=== PATIENT | female | born 1940 | race Caucasian/White ===

== ENCOUNTER 2016-09-08 16:54 | Inpatient (IN) | payer MEDICARE ==
[~2016-09-08] VITALS: Ht 157.5 cm; Wt 65.6 kg
[~2016-09-08 16:54] MED LIST: ADV250INH INH; ALBU17IN INH; ASPI81TA85 PO; FURO20TA2 PO; MICA40TA2 PO
[2016-09-08] MEDS: IPRATROPIUM 0.5MG/ALBUTEROL 2.5MG INH SOL UD 3ML (DUONEB)(J7620) NEB PRN ×3 (17:29→17:34)
[2016-09-08] MEDS ORDERED: VALS320T3 PO (17:33)
[2016-09-08 18:00] LABS: VENOUS BASE EXCESS 0.3 (-2.0-2.0); VENOUS O2 SATURATION 97.5 % (60.0-80.0); VENOUS PARTIAL PRESSURE CO2 47.8 mmHg (38.0-50.0); VENOUS PARTIAL PRESSURE O2 96.5 mmHg (30.0-50.0); VENOUS STANDARD HCO3 24.7 MEQ/L; VENOUS TOTAL CO2 27.7 MEQ/L (24.0-28.0)
[2016-09-08 18:01] LABS: BASO % 0.1 % (0.0-1.0); EOS % 0.1 % (0.0-3.0); LARGE UNSTAINED CELL % 0.3 % (0.0-4.0); LYMPH # 0.3 K/mm3 (1.5-4.5); LYMPH % 2.6 % (24.0-44.0); MEAN CORPUSCULAR HEMOGLOBIN 30.6 pg (27.0-33.0); MEAN CORPUSCULAR HGB CONC 32.2 g/dl (32.0-36.5); MEAN CORPUSCULAR VOLUME 95.2 fl (80.0-96.0); MONO # 0.2 K/mm3 (0.0-0.8); MONO % 1.8 % (0.0-5.0); NEUTROPHILS # 8.7 K/mm3 (1.8-7.7); NEUTROPHILS % 95.2 % (36.0-66.0); PLATELET COUNT, AUTOMATED 210 k/mm3 (150-450); RED CELL DISTRIBUTION WIDTH 14.2 % (11.5-14.5); WHITE BLOOD COUNT 9.1 K/mm3 (4.0-10.0)
[2016-09-08 18:07] LABS: INR 1.02
--- NOTE | 2016-09-08 18:24 | REP ---
Clinical: Shortness of breath. Pleural effusion. Findings: A large right predominantly free-flowing pleural effusion is appreciated along with a moderate and partially loculated left pleural effusion with fluid extending into the bilateral major fissures as well as associated lower lobe, right middle lobe and lingular consolidation/atelectasis. Atherosclerotic changes to the thoracic aorta and coronary arteries as well as mitral valve annulus are noted along with cardiomegaly. Reactive mediastinal lymph nodes measure up to approximately 11 mm short axis diameter. Skeletal structures demonstrate age-related degenerative changes. Impression: Large right and moderate left pleural effusions with associated elements of basilar, right middle lobe, and lingular atelectasis/consolidations. Findings may be related to cardiac dysfunction with cardiomegaly and atherosclerotic changes noted. Signed by Chirag Javier MD 09/08/2016 06:15 P
[2016-09-08 18:35] LABS: ALBUMIN 2.7 GM/DL (3.2-5.2); ALBUMIN/GLOBULIN RATIO 0.73 (1.00-1.93); BILIRUBIN,DIRECT 0.1 MG/DL (0.0-0.2); BILIRUBIN,TOTAL 0.4 MG/DL (0.2-1.0); CALCIUM LEVEL 8.6 MG/DL (8.8-10.2); CREATININE FOR GFR 1.27 MG/DL (0.55-1.02); GLOMERULAR FILTRATION RATE 43.3 (>39); POTASSIUM SERUM 4.2 MEQ/L (3.5-5.1); TOTAL PROTEIN 6.4 GM/DL (6.4-8.2)
[2016-09-08] MEDS ORDERED: VALS80TA PO (19:33)
[2016-09-08] MEDS ORDERED: FLON1SPR (19:33)
[2016-09-08] MEDS ORDERED: IPRATROPIUM 0.5MG/ALBUTEROL 2.5MG INH SOL UD 3ML (DUONEB)(J7620) NEB PRN (20:15)
--- NOTE | 2016-09-08 23:54 | HPE ---
DATE OF ADMISSION: 09/08/2016 PRIMARY CARE PROVIDER: Dr. Pulido in [place] REASON FOR ADMISSION: Shortness of breath secondary to pleural effusion. HISTORY OF PRESENT ILLNESS: The patient is a 76-year-old female, past medical history significant for chronic obstructive pulmonary disease (COPD), on 2 liters of oxygen at night time, subclavian steal syndrome, hypertension, chronic kidney disease, right-sided congestive heart failure, cor pulmonale and recurrent pleural effusions secondary to congestive heart failure. The patient presented to [facility] Emergency Room from [facility] after she presented there for shortness of breath. The patient stated that she has been feeling short of breath for the past few days, that has been getting worse. She cannot lie flat due to shortness of breath. She has been having some chills and increased swelling in her legs. She denied any fevers. She denied any chest pain. She denied any acute cough. She stated she has had multiple pleural effusions in the past, last of which was in April 2016 where she underwent a thoracentesis. She had a total of four thoracentesis in the past. She follows up with Dr. Bradley who did an x-ray in June and it was found to be normal. Today, the patient had a CT scan in [place] which showed bilateral effusions, and the patient was instructed to present to [facility]. In the emergency room, CT scan was repeated, and the patient was found to have a large right and a moderate left pleural effusions with associated elements of basilar, right middle lobe and lingular atelectasis and consolidation. Dr. Her was consulted from the emergency room who has agreed to see the patient in consultation once she was admitted and her heart failure is optimized. REVIEW OF SYSTEMS: 12-point review of systems was obtained, all of which was negative except for those mentioned above. PAST MEDICAL HISTORY: Significant for: Recurrent pleural effusions. COPD, on 2 liters of oxygen at night. Subclavian steal syndrome. Hypertension. Chronic kidney disease, stage III. Right-sided congestive heart failure. Cor pulmonale. PAST SURGICAL HISTORY; Significant for: Partial hysterectomy. Vascular surgery for her subclavian steal syndrome. ALLERGIES: To BETA KATIE and STATIN. SOCIAL HISTORY: The patient was a smoker, quit 6 years ago. She states she used to smoke half-a-pack per day for 50 years. She denies any alcohol use. Lives at home alone. FAMILY HISTORY: Noncontributory. HOME MEDICATIONS: Include: - aspirin 81 mg by mouth daily - Ventolin HFA two puffs inhaled four times a day as needed for wheezing - Flonase Allergy, one spray per nostril daily as needed for runny nose - Advair Diskus one puff inhaled twice a day - valsartan/HCTZ combo pill 80-12.5 mg one tablet by mouth daily The patient has not taken her blood pressure medication recently due to low blood pressure. PHYSICAL FINDINGS: Vital signs: On admission, temperature 96, pulse 94, respiratory rate 16, blood pressure is 106/76, pulse oximetry 97% on 4 liters. HEENT: Pupils equal, round, reactive to light and accommodation. Neck: Supple. No jugular venous distention (JVD). Lungs: Diminished breath sounds bilaterally. Abdomen: Soft, nontender, nondistended. Extremities: +3 edema bilaterally. No cyanosis or clubbing. Cardiac: Irregular rate and rhythm. LABORATORY FINDINGS: WBC is 9.1, hemoglobin 12.2, hematocrit 37.8, platelet count 210. Sodium 42, potassium 4.2, chloride 106, BUN 31, creatinine 1.27, hemoglobin A1c 6.2. Liver enzymes: AST 44, ALT 31, alkaline phosphatase 124, BNP greater than 5000, troponin negative times two sets. INR 1.02. Blood gas: Venous blood gas: pH was 7.35. CT findings as above. ASSESSMENT AND PLAN: 1. Bilateral pleural effusion, large right and moderate left pleural effusions, likely secondary to congestive heart failure exacerbation. Dr. Her is consulted for possible thoracentesis in the morning. We will start the patient on IV Lasix 40 mg IV twice a day. We will continue to monitor intake and output and daily weights. The patient states she was on Lasix in the past 20 mg by mouth daily, she was taken off of it due to low blood pressure by her primary care provider. 2. Decompensated congestive heart failure. The patient has history of diastolic congestive heart failure with recurrent pleural effusion. She has been off of her diuretics for the past few weeks due to low blood pressure. We will start the patient on IV Lasix 40 mg by mouth twice a day, monitor intake and output and daily weights. The patient appears to be saturating 98-97% on 4 liters. 3. History of chronic obstructive pulmonary disease, on 2 liters of oxygen at bedtime. The patient states she has oxygen to use during the day if needed. She has not been using it, but lately she has been using it during the day as well due to increased shortness of breath. At this time, the patient appears to be saturating 97% on 4 liters. We will continue to titrate to keep oxygen between 88 and 92. We will continue DuoNebs as needed and scheduled, and we will continue the patient on her Advair. 4. History of chronic kidney disease. The patient has stage III kidney disease. Her creatinine at this time appears to be stable at 1.27. Will continue to monitor and repeat labs in the morning. 5. History of cor pulmonale. 6. Deep vein thrombosis (DVT) prophylaxis. Thromboembolism deterrents (TEDs) and sequentials while in bed. Edited 09/08/2016
[2016-09-08 23:59] VITALS: BP 133/73
[2016-09-09] MEDS: ADVAIR DISKUS 250/50 INH PWD INH SCH ×3 (01:14→20:17)
[2016-09-09 04:25] LABS: MEAN CORPUSCULAR HEMOGLOBIN 30.6 pg (27.0-33.0); MEAN CORPUSCULAR HGB CONC 31.9 g/dl (32.0-36.5); MEAN CORPUSCULAR VOLUME 95.9 fl (80.0-96.0)
[2016-09-09 04:43] LABS: ALBUMIN 2.5 GM/DL (3.2-5.2); ALBUMIN/GLOBULIN RATIO 0.78 (1.00-1.93); BILIRUBIN,TOTAL 0.3 MG/DL (0.2-1.0); CALCIUM LEVEL 8.1 MG/DL (8.8-10.2); CREATININE FOR GFR 1.48 MG/DL (0.55-1.02); GLOMERULAR FILTRATION RATE 36.3 (>39); MAGNESIUM LEVEL 2.1 MG/DL (1.8-2.4); POTASSIUM SERUM 4.2 MEQ/L (3.5-5.1); TOTAL PROTEIN 5.7 GM/DL (6.4-8.2)
[2016-09-09 04:45] VITALS: BP 104/70
[2016-09-09 07:57] VITALS: BP 106/65
[2016-09-09] MEDS: IPRATROPIUM 0.5MG/ALBUTEROL 2.5MG INH SOL UD 3ML (DUONEB)(J7620) NEB SCH ×3 (08:00→20:18)
--- NOTE | 2016-09-09 08:14 | REP ---
Clinical: Pleural effusion. Technique: PA and lateral. Comparison: 09/08/2016. Findings: Large right and moderate left pleural effusions with underlying consolidation/infiltrates are essentially unchanged in appearance. No pneumothorax. Impression: Bilateral infiltrates and consolidations unchanged from prior examination. Signed by Chirag Javier MD 09/09/2016 08:06 A
[2016-09-09] MEDS: ASPIRIN 81 MG ENTERIC TAB PO SCH (08:41)
[2016-09-09] MEDS ORDERED: FUROSEMIDE 40 MG/4 ML VIAL (J1940) IV SCH (09:00)
--- NOTE | 2016-09-09 11:04 | IPNPDOC ---
Subjective Date Seen The patient was seen on 09/09/16. Subjective Chief Complaint/HPI The patient is a 76-year-old female admitted with a reason for visit of Pleural Effusion Due To Chf. Events since last encounter Patient was seen this morning at bedside. She reports that she's been short of breath for the last couple of days off, but this is improved today. She denies any chest pain/palpitations. No lightheadedness or dizziness. No nausea, vomiting, abdominal pain, diarrhea, fevers or chills. She is currently on 4 L of oxygen, baseline of 2 L at night at home. She has a positive balance of about 800 mL since being admitted. Objective Physical Examination General Exam: Positive: Alert, Cooperative, No Acute Distress Eye Exam: Positive: Conjunctiva & lids normal, EOMI, Negative: Sclera icteric ENT Exam: Positive: Atraumatic, Mucous membr. moist/pink, Pharynx Normal Neck Exam: Positive: Supple, JVD, Negative: thyromegaly Chest Exam: Positive: Rales (on the right), Diminished Heart Exam: Positive: Rate Normal, Irregular Rhythm, Murmurs Abdomen Exam: Positive: Normal bowel sounds, Soft, Negative: Tenderness, Hepatospenomegaly Extremity Exam: Positive: Edema (2+), Normal pulses, Negative: Cyanosis, Tenderness Skin Exam: Positive: Nl turgor and temperature, Negative: Rash Neuro Exam: Positive: Normal Speech, Cranial Nerves 3-12 NL Assessment /Plan Problems (1) Acute exacerbation of CHF (congestive heart failure) Status: Acute Problem Specific Plan: Monitor Clinically, Repeat Labs Problem Text: * Presented with shortness of breath, lower extremity, pleural effusion * Has BNP >5000 * Patient is being diuresed with IV Lasix * Cardiology has been consulted * Last echocardiogram unknown (2) Pleural effusion Status: Acute Problem Specific Plan: Monitor Clinically Problem Text: * Likely secondary to CHF * She has history of recurrent pleural effusion, status post 4 thoracentesis * We'll evaluate for the need for another thoracentesis (3) History of cor pulmonale Status: Chronic Problem Specific Plan: Monitor Clinically Problem Text: * Continue to monitor with diureses (4) Chronic kidney disease Status: Chronic Problem Specific Plan: Monitor Clinically, Repeat Labs Problem Text: * Slightly worse than yesterday * Continue to monitor renal function while being diuresed * Electrolytes are stable (5) Hypertension Status: Chronic Problem Specific Plan: Monitor Clinically Problem Text: * Blood pressure soft * Continue to monitor while being diuresed with Lasix (6) COPD (chronic obstructive pulmonary disease) Status: Chronic Problem Specific Plan: Monitor Clinically Problem Text: * Currently on 4L O2, history of using 2L O2 at night * Titrate oxygen of 88-92% * Continue Advair and duonebs as needed Plan/VTE VTE Prophylaxis Ordered?: Yes (TEDS and sequentials) VS, I&O, 24H, Fishbone Vital Signs/I&O Vital Signs Date Time Temp Pulse Resp B/P (MAP) Pulse Ox O2 Delivery O2 Flow Rate FiO2 09/09/16 07:57 96.8 82 18 106/65 (79) 98 Nasal Cannula 4.0 I&O- Last 24 Hours up to 6 AM 09/09/16 06:00 Intake Total 690 ml Output Total 100 ml Balance 590 ml Laboratory Data CBC/BMP Laboratory Tests 09/08/16 17:45 09/08/16 17:46 Red Blood Count 3.97 L, Mean Corpuscular Volume 95.2, Mean Corpuscular Hemoglobin 30.6, Mean Corpuscular Hemoglobin Concent 32.2, Red Cell Distribution Width 14.2, Neutrophils (%) (Auto) 95.2 H, Lymphocytes (%) (Auto) 2.6 L, Monocytes (%) (Auto) 1.8, Eosinophils (%) (Auto) 0.1, Basophils (%) (Auto ) 0.1, Neutrophils # (Auto) 8.7 H, Lymphocytes # (Auto) 0.3 L, Monocytes # (Auto ) 0.2, Eosinophils # (Auto) 0.0, Basophils # (Auto) 0.0 09/09/16 04:09 Red Blood Count 3.63 L, Mean Corpuscular Volume 95.9, Mean Corpuscular Hemoglobin 30.6, Mean Corpuscular Hemoglobin Concent 31.9 L, Red Cell Distribution Width 14.0, Calcium Level 8.1 L, Aspartate Amino Transf (AST/SGOT) 17, Alanine Aminotransferase (ALT/SGPT) 22, Alkaline Phosphatase 105, Total Bilirubin 0.3, Total Protein 5.7 L, Albumin 2.5 L Microbiology Microbiology 09/08/16 Blood Culture, Received Pending GME ATTESTATION GME ATTESTATION My preceptor for this patient encounter was physically present in the building during the encounter and was fully available. As needed, all aspects of the patient interview, examination, medical decision making process, and medical care plan development were reviewed and approved by the preceptor. Preceptor is aware and concurs with the plan as stated in the body of this note and will attest to such by his/her cosignature. AMRIA T JONES DO September 09, 2016 11:04
[2016-09-09 12:00] VITALS: BP 119/60
[2016-09-09] MEDS ORDERED: FUROSEMIDE 100 MG/10 ML VIAL (J1940) IV SCH (12:00)
[2016-09-09] MEDS: FUROSEMIDE injection 250 MG in D5W 225 ML IV SCH (14:44)
[2016-09-09 16:00] VITALS: BP 109/56
[2016-09-09 20:00] VITALS: BP 112/59
[2016-09-09 23:59] VITALS: BP 101/67
[2016-09-10] MEDS: IPRATROPIUM 0.5MG/ALBUTEROL 2.5MG INH SOL UD 3ML (DUONEB)(J7620) NEB SCH ×4 (01:41→19:53)
[2016-09-10 04:18] VITALS: BP 118/58
[2016-09-10 06:10] LABS: ALBUMIN 2.4 GM/DL (3.2-5.2); ALBUMIN/GLOBULIN RATIO 0.6 (1.00-1.93); BILIRUBIN,TOTAL 0.2 MG/DL (0.2-1.0); CALCIUM LEVEL 8.1 MG/DL (8.8-10.2); CREATININE FOR GFR 1.49 MG/DL (0.55-1.02); MAGNESIUM LEVEL 1.9 MG/DL (1.8-2.4); POTASSIUM SERUM 4.1 MEQ/L (3.5-5.1); TOTAL PROTEIN 6.4 GM/DL (6.4-8.2)
[2016-09-10 06:11] LABS: MEAN CORPUSCULAR HGB CONC 31.4 g/dl (32.0-36.5); MEAN CORPUSCULAR VOLUME 95.5 fl (80.0-96.0); RED CELL DISTRIBUTION WIDTH 14.1 % (11.5-14.5); WHITE BLOOD COUNT 13.8 K/mm3 (4.0-10.0)
[2016-09-10 08:00] VITALS: BP 111/65
[2016-09-10] MEDS: ADVAIR DISKUS 250/50 INH PWD INH SCH ×2 (08:10→19:52)
[2016-09-10] MEDS: ASPIRIN 81 MG ENTERIC TAB PO SCH (08:15)
--- NOTE | 2016-09-10 09:14 | ECGEPIP ---
Stationary ECG Study [facility] - ED Test Date: 2016-09-08 Pat Name: KAITLYN JOAQUIN Department: Room: - Gender: F Survey Research Associate: ct : 1940 Requested By: ZARIA GAYTAN Order Number: [id number] Reading MD: Rogelio Mejias Measurements Intervals [place] Rate: 94 P: 63 NE: 132 QRS: 79 QRSD: 102 T: -39 QT: 351 QTc: 440 Interpretive Statements SINUS RHYTHM WITH FREQUENT SUPRAVENTRICULAR PREMATURE COMPLEXES LEFT VENTRICULAR HYPERTROPHY AND ST-T CHANGE NO PRIORS Electronically Signed On 09-10-2016 9:13:56 EDT by Rogelio Mejias
[2016-09-10 11:59] VITALS: BP 112/56
[2016-09-10] MEDS: FUROSEMIDE injection 250 MG in D5W 225 ML IV SCH (15:31)
[2016-09-10 16:00] VITALS: BP 113/55
--- NOTE | 2016-09-10 17:04 | IPN ---
DATE: 09/10/2016 SUBJECTIVE: Patient is seen and examined in the room today. Patient stated her breathing shows some improvement so patient was able to wean off the oxygen requirement from 4 liters nasal cannula to 2 liters nasal cannula. Patient is noted to have increased urinary output. No overnight events are reported. OBJECTIVE: VITAL SIGNS: Temperature 96.5, pulse 87, respiration rate 18, blood pressure 111/65, pulse oximetry 92% with 2 liters nasal cannula. GENERAL: No sign of acute distress. Alert and oriented times three. HEENT: Normocephalic, atraumatic. Extraocular motors grossly intact. CARDIOVASCULAR: Positive S1, S2, irregularly irregular. LUNGS: Positive crackles bilaterally. No wheezes. ABDOMEN: Soft, nontender, nondistended. Bowel sounds present. No rebound. No guarding. EXTREMITIES: 2+ to 3+ pitting edema bilaterally. No sign of cyanosis. LABORATORY DATA: WBC 13.8, hemoglobin 11.3, hematocrit 35.7, platelet count 206. Sodium 141, potassium 4.1, chloride 106, carbon dioxide 29, BUN 46, creatinine 1.49, GFR 36, fasting glucose 109, calcium 8.1, magnesium 1.9, total bilirubin 0.2, AST 19, ALT 18, alkaline phosphatase 112, C-reactive protein 2.49, total protein 6.4, albumin 2.4. ASSESSMENT AND PLAN: 1. Acute respiratory distress. Patient's chest x-ray shows patient has significant pleural effusions and patient is currently on Lasix drip. Will try to diurese the patient. Echocardiogram is ordered and it will be performed today. Concrete Float Maker, Dr. Her, and home fire alarm installer, Dr. Lira, have been consulted. We appreciate their assistance. 2. Pleural effusion, most likely secondary to decompensated congestive heart failure (CHF). Patient has a history of recurrent pleural effusions status post thoracentesis in the past. 3. History of cor pulmonale. On diuretic. 4. Chronic kidney disease. Most likely secondary to uncontrolled congestive heart failure (CHF). Patient is on aggressive IV diuresis. Will continue to follow the renal function. 5. Hypertension. Patient's blood pressure was very soft during admission. Patient is being diuresed with Lasix drip. Blood pressure medication should be on hold. 6. Chronic obstructive pulmonary disease (COPD). At baseline, patient is using 2 liters oxygen at night. Continue breathing treatment as needed. 7. Deep venous thrombosis (DVT) prophylaxis. Patient is on thromboembolism deterrents (TEDs) and sequential compression device.
[2016-09-10] MEDS: SPIRONOLACTONE 25 MG TAB PO SCH (18:07)
[2016-09-10 20:00] VITALS: BP 105/51
--- NOTE | 2016-09-10 22:39 | CR ---
DATE OF CONSULTATION: 09/09/2016 REFERRING PHYSICIAN: Dr. Chacon. REASON FOR CONSULTATION: Pleural effusions. HISTORY OF PRESENT ILLNESS: Mr. Redman is a delightfully pleasant 76-year-old female normally followed by Dr. Pulido from a primary care standpoint. She has been seen by Dr. Bradley from pulmonology in the past for mild underlying obstructive lung disease, but has difficulties with recurrent pleural effusions generally right greater than left. Every time these have been sampled, they are clearly secondary to her congestive heart failure. The one on the right is the most chronic. She says about 10 days or so before her recent admission, she was seen in the outpatient setting and felt to have an early bronchitis. She says, however, her cough and shortness of breath persisted and progressed. Two days prior to admission, she noticed her legs were markedly swollen. She was more short of breath. She was admitted to [facility]. There, she was noted to have recurrence of her effusions, right greater than left, and was transferred here for consideration of drainage as they did not have that capability. She has been admitted to the hospitalist service. Despite the addition of increased diuretics, she has not attained any net negative overnight, and I am asked now to assist in her management. She is fairly comfortable at the moment. She has decreased exercise tolerance. She has some intermittent cough, only rarely productive. She does note worsening shortness of breath with lying flat, but denies any recent fevers or chills. ALLERGIES: Listed as BETA BLOCKERS and STATINS. MEDICATIONS AT HOME: Baby aspirin, Ventolin, Flonase, Advair 250/50, and valsartan hydrochlorothiazide 80/12.5 one daily. PAST MEDICAL HISTORY: 1. Significant for her congestive heart failure. 2. Chronic kidney disease stage III. 3. Mild underlying obstructive lung disease. 4. Hypertension. 5. Chronic decompensated congestive failure on two liters nasal cannula oxygen at night. 6. Previously documented subclavian steal. 7. Non cor pulmonale. PREVIOUS SURGICAL HISTORY: Partial hysterectomy and surgery for subclavian steal. SOCIAL HISTORY: Lives in the [facility]. She lives home alone. She is a reformed tobacco abuser, about half pack a day for 50 years. Quit six years ago. No alcohol. FAMILY HISTORY: Noncontributory to her current status. REVIEW OF SYSTEMS: As per the history of present illness (HPI). Otherwise: Constitutional: Negative for any recent fever or chills. HEENT: Unremarkable for double or blurred vision. Pulmonary: As per HPI. Cardiac: Significant for CHF. Endocrine: Urn for diabetes or thyroid disease. Hematologic: Unremarkable for any bruising or bleeding. Dermatologic: Unremarkable for rashes or psoriasis. Psychiatric: Unremarkable. Hematologic: Unremarkable for any bleeding dyscrasias. Gastrointestinal (GI): Unremarkable for any nausea or vomiting. Genitourinary (): Unremarkable for any recent dysuria or urgency. Neurologic: Unremarkable for seizures or strokes. PHYSICAL EXAM: Currently this is a pleasant elderly female seated in the chair. VITAL SIGNS: Blood pressure 106/65, heart rate 80s and generally regular, respiratory rate 16-18 and unlabored. She does have nasal cannula oxygen in place. HEENT: Otherwise, generally normocephalic and atraumatic. Pupils reactive. Neck supple, full range. Trachea is midline. Mucous membranes of nose and mouth are moist. Airway is class II. Jugular venous system I do believe is barely visible even at 90 degrees. CHEST: Shows symmetric expansion. Percussion shows dullness over the lower half of the right hemithorax and some dullness at the extreme portion of the left hemithorax. There are some crackles noted just above these. She is fairly clear anteriorly. There are rare rhonchi that clear with cough. No rubs. CARDIAC EXAM: Generally regular. No gallop. Peripheral pulses are palpable. There is at least 2+ pitting lower extremity edema bilaterally despite compressive stockings being in place. ABDOMEN: Soft, nontender with normoactive bowel sounds. No hepatosplenomegaly or masses. EXTREMITIES: Without cyanosis or clubbing. NEUROLOGICAL: She is awake, alert, and appropriate. PSYCHIATRIC: With normal mood and affect. Pulse oximetry 98% on four liters. IMAGING: CTs and chest x-rays as outline above, which show recurrence of her effusions, right greater than left. There is some compressive atelectasis on the right noted on the CT scan. Portions of her left effusion are loculated in a fissure. LABORATORY DATA: Most recent laboratories show a white blood cell count of 7.0, hemoglobin 11.1, platelet count 190,000. Sodium 141, potassium 4.2, chloride 106, CO2 29, BUN 37, creatinine 1.48 mildly up from yesterday. BNP drawn yesterday is greater than 5000. Venous blood gas done yesterday on unknown oxygen flow, shows a pH 7.358, pCO2 of 47.8, pO2 96.5. INR is 1. IMPRESSION: 1. Bilateral pleural effusions most likely secondary to her decompensated congestive heart failure. 2. Congestive heart failure. 3. Chronic kidney disease. 4. Chronic obstructive pulmonary disease. 5. Previous tobacco history. RECOMMENDATIONS: At this point, I would suggest more aggressive intervention regarding her volume overload and congestive heart failure. Given her brain natriuretic peptide (BNP) of greater than 5000, any attempt at thoracentesis would likely represent rapid reaccumulation of her fluid. Certainly, as well, a large-volume thoracentesis given her soft blood pressure, would only result in a more profound hypotensive state. She is not anxious to have the fluid drained unless absolutely necessary. At this point, I would continue her current management for known mild underlying obstructive lung disease. I see that cardiology has been asked to become involved in her care, and I believe this is very appropriate. She will be followed as needed while she is here in the hospital. Certainly if adequate diuresis is achieved and she persists with the significant symptomatic effusion, then we can consider drainage, but this could always even be done as an outpatient if she is symptomatically improved. Further recommendations will be made in the progress records as new information becomes available. REBECCA
[2016-09-11] VITALS: BP 108/58
[2016-09-11] MEDS: IPRATROPIUM 0.5MG/ALBUTEROL 2.5MG INH SOL UD 3ML (DUONEB)(J7620) NEB SCH ×4 (01:07→19:33)
--- NOTE | 2016-09-11 02:49 | CR ---
DATE OF CONSULTATION: 09/10/2016 REASON FOR CONSULTATION: Congestive heart failure. HISTORY OF PRESENT ILLNESS: 76-year-old woman was transferred from [facility] where she presented there with shortness of breath. She was in decompensated congestive heart failure. She was found to have bilateral pleural effusion. She has a history of hypertension, hyperlipidemia, chronic obstructive pulmonary disease (COPD), peripheral arterial disease, chronic kidney disease. It showed that recently, her blood pressure was running low and antihypertensive medications were being rarely used. Cardiology consult was called in view of the pleural effusion, she was started on intravenous (IV) Lasix. When I saw Mrs. Zo Redman, she was sitting in the chair in the room, in no acute distress at rest and she denies any chest pain, palpitations. She stated that her pedal edema and her shortness of breath has improved since in the hospital. She denied any fever or chills. She denies bleeding. She rarely takes her medication regularly. She has no focal manifestation. She has no nausea, vomiting, diarrhea, melena or hematemesis. She has a past medical history as mentioned above positive for COPD for which she has been on oxygen, peripheral arterial disease with right carotid endarterectomy and revascularization, revascularization done for subclavian steal syndrome, hypertension, hyperlipidemia, chronic kidney disease, and congestive heart failure. She denies any history of myocardial infarction, CVA, cardiomyopathy, sudden cardiac . PAST SURGICAL HISTORY: Positive for partial hysterectomy, right carotid endarterectomy and surgery done for subclavian steal syndrome. Otherwise, unremarkable. ALLERGIES: She has allergies to AMLODIPINE, BETA KATIE, ZETIA, SIMVASTATIN, FISH OIL. CURRENT MEDICATIONS: - Lasix drip - aspirin - DuoNeb - Advair Diskus 250/50 - Also DuoNeb as needed FAMILY HISTORY: Noncontributory. SOCIAL HISTORY: Patient lives in [facility], alone at home. She is a former smoker. She used to smoke heavily. She denies any ethyl alcohol (EtOH) abuse. ADVANCED DIRECTIVES: Patient is a FULL CODE. PHYSICAL EXAMINATION: Patient is alert and oriented, in no acute distress at rest. Her vital signs when I saw her revealed a blood pressure of 111/65 with a pulse of 87, respirations 18, and her maximum temperature is 96.5 degrees Fahrenheit with an oxygen saturation of 92-94% on 2 liters nasal cannula. For 09/09/2016 she has a fluid balance of negative 197 mL. Examination of the head, ears, eyes, nose and throat: Atraumatic. Neck is supple. I could not appreciate any jugular venous distention (JVD). The lungs revealed decreased breath sounds at the bases with minimal crackles. The heart examination revealed normal S1 and S2 without gallops. The point of maximal impulse (PMI) is not displaced. There is no rub. There is a systolic murmur grade 1-2 over 6 at lower left sternal border and at the apex without any significant radiation. Abdomen is unremarkable. Extremities reveal +1 bilateral lower leg edema. Neurological examination grossly is negative for focal deficit. LABORATORIES: CBC done today revealed a WBC of 13.8, hemoglobin 11.2, hematocrit 35.7, and platelets 206,000. On admission, CBC revealed a WBC of 9.7, hemoglobin 12.2, hematocrit 37.8, and platelets 210,000. BMP done today revealed a sodium of 141, potassium 4.1, chloride 106, CO2 29, BUN 46, creatinine 1.49, GFR 36.0, fasting glucose 109, and calcium 8.1. Serum magnesium is 1.9. Liver enzymes reveal a total bilirubin of 0.2, AST 19, ALT 18, alkaline phosphatase 112, total protein 6.4, and albumin 2.4. Serum BNP on admission was more than 5000. Serum troponin has been negative. BUN and creatinine on admission, on 09/08/2016, were 31 and 1.27 respectively. PT on admission was 13.5 with an INR of 1.02. Chest CT on admission, 09/08/2016, revealed large right and moderate left pleural effusion. Cardiomegaly was also noted, as well as atherosclerotic disease. Chest x-ray on 09/09/2016 revealed bilateral infiltrate and consolidation. Electrocardiogram on 09/08/2016, on admission, revealed normal sinus rhythm with elevated PACs, mild IVCD, and nonspecific ST-T abnormalities that may be related to LVH versus ischemia. IMPRESSION: 76-year-old woman with a history of peripheral arterial disease, hypertension, hyperlipidemia, chronic obstructive pulmonary disease (COPD), chronic kidney disease, was transferred from [facility] where she was admitted with increasing shortness of breath. She was found to have bilateral effusion. Cardiology consult was called because there is a suspicion that it may be related to congestive heart failure because she has a markedly elevated serum beta-natruretic peptide (BNP). Patient feels better, she was started on intravenous (IV) drip Lasix. Her serum blood urea nitrogen (BUN) and creatinine has increased and she will need to be monitored closely. In the meantime, I will proceed with an echocardiogram in order to assess her left ventricular systolic function. She denies any history of myocardial infarction, or significant valvular heart disease. She does have mitral regurgitation on physical examination and this will be reassessed with the echocardiogram. It was a pleasure to participate in the care of Mrs. Zo Redman for her underlying cardiac condition. I will monitor along with you while in the hospital. At this present time, clinically stable. PATRICKD
[2016-09-11 04:00] VITALS: BP 113/62
[2016-09-11 05:17] LABS: BASO % 0.4 % (0.0-1.0); EOS # 0.2 K/mm3 (0.0-0.50); EOS % 2.8 % (0.0-3.0); LARGE UNSTAINED CELL # 0.1 K/mm3 (0.0-0.4); LYMPH # 0.6 K/mm3 (1.5-4.5); MEAN CORPUSCULAR HEMOGLOBIN 30.4 pg (27.0-33.0); MEAN CORPUSCULAR HGB CONC 31.8 g/dl (32.0-36.5); MEAN CORPUSCULAR VOLUME 95.6 fl (80.0-96.0); MONO # 0.4 K/mm3 (0.0-0.8); MONO % 5.9 % (0.0-5.0); NEUTROPHILS # 5.5 K/mm3 (1.8-7.7); NEUTROPHILS % 79.9 % (36.0-66.0); PLATELET COUNT, AUTOMATED 194 k/mm3 (150-450); RED CELL DISTRIBUTION WIDTH 14.1 % (11.5-14.5); WHITE BLOOD COUNT 6.9 K/mm3 (4.0-10.0)
[2016-09-11 05:30] LABS: ALBUMIN 2.4 GM/DL (3.2-5.2); ALBUMIN/GLOBULIN RATIO 0.6 (1.00-1.93); BILIRUBIN,TOTAL 0.3 MG/DL (0.2-1.0); CALCIUM LEVEL 8.2 MG/DL (8.8-10.2); CREATININE FOR GFR 1.56 MG/DL (0.55-1.02); GLOMERULAR FILTRATION RATE 34.2 (>39); MAGNESIUM LEVEL 1.7 MG/DL (1.8-2.4); POTASSIUM SERUM 3.7 MEQ/L (3.5-5.1); TOTAL PROTEIN 6.4 GM/DL (6.4-8.2)
[2016-09-11] MEDS: ADVAIR DISKUS 250/50 INH PWD INH SCH ×2 (07:19→19:33)
[2016-09-11 08:18] VITALS: BP 101/56
[2016-09-11] MEDS: ASPIRIN 81 MG ENTERIC TAB PO SCH (08:30)
[2016-09-11] MEDS: SPIRONOLACTONE 25 MG TAB PO SCH (08:30)
--- NOTE | 2016-09-11 10:15 | ECHO ---
DATE OF PROCEDURE: 09/10/2016 DATE OF : 1940 AGE: 76 REFERRING PROVIDER: Dr. Vielak Chacon. PATIENT LOCATION: Room 3217. REASON FOR ECHOCARDIOGRAM: Shortness of breath, heart failure. 2D MEASUREMENTS: IVS: 1.0 cm LV: 5.0 cm LVPW: 1.1 cm LA: 4.6 cm Aorta: 2.7 cm RV: 2.7 cm IVC: 1.98 cm DOPPLER MEASUREMENTS: Peak velocity across the aortic valve: 1.4 m/s Mitral E: 1.5 Mitral A: 1.3 Ratio 1.2 Peak gradient across the mitral valve: 10.8 mmHg Mean gradient across the mitral valve: 5 mmHg Mitral valve area by pressure half time: 3.4 cm2 Maximum tricuspid valve velocity: 2.6 m/s 2D COMMENTS: 1. Normal left ventricular size, wall thickness and normal global left ventricular systolic function. The estimated global left ventricular systolic ejection fraction is 55% to 60%. 2. Mildly enlarged left atrium. Normal right atrium and right ventricle. 3. The atrial septum appeared to be normal without evidence of defect or shunt. 4. Normal aortic root. 5. Trace to small pericardial effusion noted posteriorly, no evidence of cardiac tamponade. 6. Mildly calcified aortic valve with normal leaflet excursion. The mitral annulus is moderately to severely calcified but the anterior mitral valve leaflet motion seems to be normal, unrestricted. Normal tricuspid valve. The pulmonic valve and proximal pulmonary artery branches were not well visualized. 7. The inferior vena cava is borderline enlarged. DOPPLER: It detects mild to moderate mitral regurgitation and mild tricuspid regurgitation. The calculated pulmonary artery systolic pressure varies between 30 to 40 mmHg. Assessment of the left ventricular diastolic function appeared to be normal. IMPRESSION: 1. Normal global left ventricular systolic and diastolic function. 2. Aortic valve sclerosis without stenosis or aortic regurgitation. 3. Mitral annulus calcification with mild to moderate mitral regurgitation and mild calcific mitral stenosis. 4. Mild tricuspid regurgitation with mild pulmonary hypertension. 5. Trace to small pericardial effusion noted, no evidence of cardiac tamponade. MTDD
--- NOTE | 2016-09-11 11:25 | IPN ---
DATE: 09/11/2016 SUBJECTIVE: Patient is seen and examined in the room today. Patient stated her breathing is improving. Her swelling is also improving but she has to urinate more frequently than before. No overnight events reported. OBJECTIVE: Vital signs: Temperature is 96.7, pulse 84, respirations 20, blood pressure 101/56, pulse ox 94% with 2 liters nasal cannula. General: No sign of acute distress. Alert and oriented times three. HEENT: Positive jugular venous distention (JVD). Normocephalic, atraumatic. Extraocular motor grossly intact. Cardiovascular: Positive S1, S2. Regular rate. Heart rate is around 84. Lungs: Positive bilateral crackles. No wheezes. Abdomen: Soft, nontender, nondistended. Bowel sounds present. No rebound, no guarding. Extremities: 2+ pitting edema bilateral improved compared to yesterday. No sign of cyanosis. LABORATORY DATA: WBC 6.9, hemoglobin 11.2, hematocrit 35.3, platelet count 194. Sodium 141, potassium 3.7, chloride 101, carbon dioxide 36, BUN 46, creatinine 1.56, glomerular filtration rate 34.2. Fasting glucose 101. Calcium 8.2, magnesium 1.7, total bilirubin 0.83. AST 11, ALT 15, alkaline phos 108. BNP Is 2840. Total protein 624. Albumin 2.4. ASSESSMENT AND PLAN: 1. Acute respiratory distress secondary to decompensated congestive heart failure causing significant bilateral pleural effusion. Patient is currently on diuretic; IV Lasix drip with spironolactone. Echocardiogram was performed, waiting for official report. [employer] Manager Dr. Her and patternmaker plaster and plastic Dr. Lira have been consulted. We appreciate their assistance. 2. Bilateral pleural effusions secondary to decompensated congestive heart failure. Per recommendation, will try to attempt diuresis and patient will be re-evaluated to see if patient will need thoracentesis. 3. History of cor pulmonale on diuretic. 4. Chronic kidney disease. Continue to monitor. Patient is on aggressive IV diuresis at this moment. 5. Hypertension. Patient actually had a very soft blood pressure at admission. Patient's blood pressure is being maintained when patient is receiving current IV Lasix diuresis. Continue to monitor. 6. Chronic obstructive pulmonary disease (COPD). At baseline patient is using 2 liters oxygen at home at night only. Currently patient is not having chronic obstructive pulmonary disease (COPD) exacerbation. Continue breathing treatment as needed. 7. Deep venous thrombosis (DVT) prophylaxis. Patient has thromboembolic deterrent stockings (TEDS), sequentials and compression device. MTDD
[2016-09-11 12:00] VITALS: BP 133/67
--- NOTE | 2016-09-11 13:12 | IPN ---
DATE: 09/11/2016 Mrs. Zo Redman was seen earlier this morning. She was lying supine in a chair. No acute distress at rest. She states that she feels much better and her pitting edema has improved. She has been ambulating. She denies any palpitations, chest pain, dizziness. There is no report of bleeding. She was initially admitted with decompensated congestive heart failure (CHF) and she was started here on IV drip. Yesterday, spironolactone was added. She had an echocardiogram done yesterday and it revealed a normal global left ventricular systolic function with mitral regurgitation and mild calcific mitral stenosis. There is no report of nausea, vomiting, diarrhea, melena or hematemesis. PHYSICAL EXAMINATION: The patient is alert and oriented, in no acute distress at rest. Her vital signs this morning revealed a blood pressure of 101/56 with a pulse of 84, respirations 20, and a maximum temperature is 97.5 degrees Fahrenheit with an oxygen saturation 94 to 98% on 2 liters nasal cannula. She has a negative fluid balance of about 1.1 liter on 09/10/2016. HEENT: Examination of the head is normocephalic, atraumatic. NECK: Supple, no jugular venous distention (JVD) appreciated. LUNGS: Reveal decreased breath sounds at the bases, more on the right than the left. No wheezing. HEART: Examination revealed normal S1, S2 without gallops. No premature beats heard. The point of maximum impulse (PMI) is not displaced. There is no rub. There is a systolic murmur grade 1 to 2/6 at the lower left sternal border in the apex without any radiation. ABDOMEN: Unremarkable. EXTREMITIES: Revealed +1 bilateral lower leg edema. NEUROLOGIC: Examination is negative for focal deficit. LABORATORY DATA: BMP done today revealed a sodium of 141, potassium 3.7, chloride 101, CO2 of 36 and BUN 46, creatinine 1.5, GFR 34.2, fasting glucose 104, and calcium 8.2. Magnesium is 1.7. Liver enzymes reveal a total bilirubin of 0.3, AST 11, ALT 15, alkaline phosphatase 108, total protein 6.7 and albumin 2.4. Serum BNP today is 2840. CBC done today revealed a WBC of 6.9, hemoglobin 11.2, hematocrit 35.3, and platelets 194,000. Telemetry was reviewed and revealed normal sinus rhythm with PACs, nonspecific ST-T abnormalities. IMPRESSION: Congestive heart failure (CHF), acute on chronic secondary to left ventricular diastolic dysfunction in the setting of underlying valvular heart disease involving the mitral valve. She does have a history of peripheral artery disease, hypertension, hyperlipidemia. Her antihypertensive medication was discontinued recently because her blood pressure was running low. She has a history of intolerance and has not been able to tolerate statins. I think that now we can discontinue the IV drip of furosemide starting tomorrow and change it to regular IV Lasix. I think that she has not been treated correctly prior to coming to this hospital. I will decrease the spironolactone to once a day and I am going to add a small dose of beta tao with metoprolol tartrate starting tomorrow in view of underlying mitral stenosis because she probably will not be able to tolerate while in tachycardia and that can throw her in congestive heart failure. I will continue to monitor along with you while in the hospital. Please do not hesitate to call if any questions. REBECCA
--- NOTE | 2016-09-11 13:16 | IPN ---
DATE: 09/11/2016 I was planning to add a small dose of a beta tao with metoprolol titrate, but I noticed that she has underlying allergic reaction to beta blockers and for this reason, she was started on a small dose of short acting calcium channel tao with Cardizem starting this evening at 30 mg by mouth twice a day. MTDD
[2016-09-11] MEDS: FUROSEMIDE injection 250 MG in D5W 225 ML IV SCH (15:16)
[2016-09-11 16:00] VITALS: BP 106/59
[2016-09-11 20:00] VITALS: BP 101/61
[2016-09-12] VITALS (7 sets, daily range): BP systolic 103–136; BP diastolic 56–65
[2016-09-12] MEDS: IPRATROPIUM 0.5MG/ALBUTEROL 2.5MG INH SOL UD 3ML (DUONEB)(J7620) NEB SCH ×4 (01:06→19:54)
[2016-09-12 05:15] LABS: BASO % 0.5 % (0.0-1.0); EOS # 0.3 K/mm3 (0.0-0.50); EOS % 4.7 % (0.0-3.0); LARGE UNSTAINED CELL # 0.1 K/mm3 (0.0-0.4); LARGE UNSTAINED CELL % 2.4 % (0.0-4.0); LYMPH # 0.7 K/mm3 (1.5-4.5); LYMPH % 9.3 % (24.0-44.0); MEAN CORPUSCULAR HEMOGLOBIN 30.9 pg (27.0-33.0); MEAN CORPUSCULAR HGB CONC 32.9 g/dl (32.0-36.5); MEAN CORPUSCULAR VOLUME 94.1 fl (80.0-96.0); MONO # 0.4 K/mm3 (0.0-0.8); MONO % 6.2 % (0.0-5.0); NEUTROPHILS # 4.4 K/mm3 (1.8-7.7); NEUTROPHILS % 76.9 % (36.0-66.0); PLATELET COUNT, AUTOMATED 181 k/mm3 (150-450); WHITE BLOOD COUNT 5.7 K/mm3 (4.0-10.0)
[2016-09-12 05:32] LABS: ALBUMIN 2.2 GM/DL (3.2-5.2); ALBUMIN/GLOBULIN RATIO 0.61 (1.00-1.93); BILIRUBIN,TOTAL 0.4 MG/DL (0.2-1.0); CALCIUM LEVEL 8.1 MG/DL (8.8-10.2); CREATININE FOR GFR 1.44 MG/DL (0.55-1.02); GLOMERULAR FILTRATION RATE 37.5 (>39); MAGNESIUM LEVEL 1.6 MG/DL (1.8-2.4); POTASSIUM SERUM 3.4 MEQ/L (3.5-5.1); TOTAL PROTEIN 5.8 GM/DL (6.4-8.2)
[2016-09-12] MEDS: ADVAIR DISKUS 250/50 INH PWD INH SCH ×2 (07:08→19:53)
[2016-09-12] MEDS ORDERED: POTASSIUM CHLORIDE 10 MEQ SR TABLET PO ONE ×2 (08:00→20:45)
--- NOTE | 2016-09-12 08:11 | IPN ---
DATE: 09/12/2016 Mrs. Redman is feeling much better today. She believes that her dyspnea has improved at least 70% if not more. Denies any chest pain. There is no sensation of palpitations. Peripheral edema has completely resolved. Vital signs: Blood pressure 103/65, heart rate is in 80s and 90s. She is afebrile. Saturation 92% on 2 liters of oxygen by nasal cannula. Fluid balance yesterday was about 2 liters negative. Documented weight is 63.7 kg, which either today or yesterday was inaccurate. She is alert and oriented and appropriate. Her JVP is still about 3 or 4 cm above the clavicle. Lungs revealed clear lung lawson approximately upper half but then the lower half on the right and lower third on the left are completely diminished. Heart exam reveals regular rhythm. I do not appreciate any gallop or rub. There is a murmur best heard over the left sternal border. There is not more than 1 and maybe 2/6. Abdomen is soft, nontender. There is no peripheral edema. Neurologically she is intact. LABORATORY: Potassium is 3.4, BUN 43, creatinine 1.54, GFR 34, glucose is 109, magnesium is 1.6, normal liver function test. Her BNP yesterday was still very high at 2800. CBC reveals WBC count 5.7, hemoglobin 10.6, hematocrit 32 and platelet count 181,000 ASSESSMENT/PLAN: Mrs. Redman is a 76-year-old lady who has chronic obstructive pulmonary disease (COPD) and is on supplemental oxygen who presents with yet another episode of congestive heart failure with bilateral pleural effusions, right larger than left. She also had peripheral edema. So far she has been responding favorably to administration of IV Lasix, she was actually on a drip. The medication was discontinued and currently no Lasix is ordered. She is still clearly volume overloaded and she still has bilateral pleural effusions, so I am going to restart the medication after providing some supplemental potassium and magnesium. I will give her 40 mg IV twice a day and we can adjust the dose accordingly depending on her response. In the long run she should have some mechanism established on outpatient basis, how she would respond to episodes of exacerbation. It appears to me that there is no adjustment made until she is really sick at which point she has to stay in the hospital for several days.
[2016-09-12] MEDS: MAGNESIUM OXIDE 400 MG TAB (MAG-OX) PO SCH ×2 (08:58→21:41)
[2016-09-12] MEDS: ASPIRIN 81 MG ENTERIC TAB PO SCH (08:58)
[2016-09-12] MEDS: SPIRONOLACTONE 25 MG TAB PO SCH (08:59)
[2016-09-12] MEDS: FUROSEMIDE 40 MG/4 ML VIAL (J1940) IV SCH ×2 (08:59→17:11)
--- NOTE | 2016-09-12 12:24 | IPNPDOC ---
Text Note Date of Service The patient was seen on 09/12/16. NOTE Subjective: Pt states her dyspnea is much improved. Denies CP/palpitations. Objective: Vitals: (see below) General: No acute distress, laying comfortably in bed. HEENT: Moist mucous membranes. Neck: No JVD or lymphadenopathy Cardiac: RRR, No murmurs Pulm: Coarse crackles b/l bases. No wheezing, rhonchi Abd: NT/ND + BS Ext: 1+ pitting edema BLE. No cyanosis Labs (see below) Images: CT Chest 09/08/16 Impression: Large right and moderate left pleural effusions with associated elements of basilar, right middle lobe, and lingular atelectasis /consolidations. Findings may be related to cardiac dysfunction with cardiomegaly and atherosclerotic changes noted. Echocardiogram 09/09/16 IMPRESSION: 1. Normal global left ventricular systolic and diastolic function. 2. Aortic valve sclerosis without stenosis or aortic regurgitation. 3. Mitral annulus calcification with mild to moderate mitral regurgitation and mild calcific mitral stenosis. 4. Mild tricuspid regurgitation with mild pulmonary hypertension. 5. Trace to small pericardial effusion noted, no evidence of cardiac tamponade. Assessment/Plan 1. Acute decompensated diastolic heart failure with bilateral pleural effusions. Status post Lasix drip. Tolerated well. Now on Lasix IV twice a day. Cardizem per cardio. Echocardiogram see above. Net negative -2.7L. Also continued on spironolactone. Appreciate cardiology input. 2. History of recurrent bilateral pleural effusions likely secondary to decompensated heart failure. Patient has been noncompliant outpatient. She does have her Lasix discontinued when her blood pressure is relatively low outpatient. Pulmonology had been consulted with recommendations to continue diuresis and to hold off on thoracentesis at this point. Afebrile. 3. CKD stage III- stable. Avoid nephrotoxins. 4. Hypertension- stable. On Lasix IV twice a day. Had not been tolerating Cardizem given her soft blood pressures. 5. COPD on 2 L at home at night. Stable continue nebs DVT prophy: Heparin subcutaneous VS,Fishbone, I+O VS, Fishbone, I+O Laboratory Tests 09/12/16 05:05 Red Blood Count 3.43 L, Mean Corpuscular Volume 94.1, Mean Corpuscular Hemoglobin 30.9, Mean Corpuscular Hemoglobin Concent 32.9, Red Cell Distribution Width 14.0, Neutrophils (%) (Auto) 76.9 H, Lymphocytes (%) (Auto) 9.3 L, Monocytes (%) (Auto) 6.2 H, Eosinophils (%) (Auto) 4.7 H, Basophils (%) ( Auto) 0.5, Neutrophils # (Auto) 4.4, Lymphocytes # (Auto) 0.7 L, Monocytes # ( Auto) 0.4, Eosinophils # (Auto) 0.3, Basophils # (Auto) 0.0, Calcium Level 8.1 L , Aspartate Amino Transf (AST/SGOT) 11 L, Alanine Aminotransferase (ALT/SGPT) 10 L, Alkaline Phosphatase 100, Total Bilirubin 0.4, Total Protein 5.8 L, Albumin 2.2 L Vital Signs Date Time Temp Pulse Resp B/P (MAP) Pulse Ox O2 Delivery O2 Flow Rate FiO2 09/12/16 08:58 84 103/65 09/12/16 08:00 97.0 18 96 Nasal Cannula 2.0 I&O- Last 24 Hours up to 6 AM 09/12/16 06:00 Intake Total 863 ml Output Total 2950 ml Balance -2087 ml FILIPPO REDDING MD September 12, 2016 12:24
[2016-09-12] MEDS: HEPARIN SOD (PORCINE) 5000 UNITS/ML VIAL SQ SCH ×2 (14:58→21:40)
[2016-09-12] MEDS ORDERED: ACETAMINOPHEN TAB 650MG DOSE (2X325MG) PO PRN (16:15)
[2016-09-12 18:54] LABS: CALCIUM LEVEL 8.4 MG/DL (8.8-10.2); CREATININE FOR GFR 1.68 MG/DL (0.55-1.02); GLOMERULAR FILTRATION RATE 31.4 (>39); POTASSIUM SERUM 3.7 MEQ/L (3.5-5.1)
[2016-09-13] MEDS: IPRATROPIUM 0.5MG/ALBUTEROL 2.5MG INH SOL UD 3ML (DUONEB)(J7620) NEB SCH ×4 (02:28→20:00)
[2016-09-13 04:50] VITALS: BP 120/56
[2016-09-13 05:37] LABS: MEAN CORPUSCULAR HEMOGLOBIN 30.2 pg (27.0-33.0); MEAN CORPUSCULAR VOLUME 94.6 fl (80.0-96.0); RED CELL DISTRIBUTION WIDTH 13.9 % (11.5-14.5); WHITE BLOOD COUNT 5.6 K/mm3 (4.0-10.0)
[2016-09-13 05:56] LABS: ALBUMIN 2.2 GM/DL (3.2-5.2); ALBUMIN/GLOBULIN RATIO 0.58 (1.00-1.93); BILIRUBIN,TOTAL 0.3 MG/DL (0.2-1.0); CALCIUM LEVEL 8.2 MG/DL (8.8-10.2); CREATININE FOR GFR 1.6 MG/DL (0.55-1.02); GLOMERULAR FILTRATION RATE 33.2 (>39); MAGNESIUM LEVEL 2.1 MG/DL (1.8-2.4); POTASSIUM SERUM 4.3 MEQ/L (3.5-5.1)
[2016-09-13] MEDS: HEPARIN SOD (PORCINE) 5000 UNITS/ML VIAL SQ SCH ×3 (06:20→21:15)
[2016-09-13 07:30] VITALS: BP 104/59
--- NOTE | 2016-09-13 08:00 | IPN ---
DATE: 09/13/2016 Mrs. Redman tells me that she is feeling better, less short of breath. She was able to ambulate around the room without difficulty. On telemetry, she remains in sinus rhythm with frequent atrial ectopy and more concerningly also relatively frequent episodes of nonsustained ventricular tachycardia. She denies any chest pain or sensation of palpitations. Vital Signs: Blood pressure 120/56. Heart rate is from 60s to 80s. She is afebrile. Saturation 95% on 2 liters of oxygen by nasal cannula. Fluid balance yesterday was approximately equal. Documented weight is 66 kg. She is sitting comfortably in a chair. Her jugular venous pulse (JVP) still appears a little bit elevated over the clavicle, but not very much, maybe 2 cm in sitting position. Lungs still reveal diminished breath sounds over both bases, but sound certainly better than yesterday. Heart Exam: Regular rhythm with fairly frequent ectopy. I do not appreciate any gallop or rub. Abdomen: Soft, nontender. There is no peripheral edema. Neurologically she is intact. Laboratory-robison, basic metabolic panel this morning - potassium 4.3, BUN 41 and creatinine 1.6 for a GFR of 33 and glucose 113. Albumin is 2.2. CBC - hemoglobin 10.7, hematocrit 33 and platelet count 191,000. ASSESSMENT/PLAN Mrs. Redman is a 76-year-old female who has COPD and is on supplemental oxygen and comes with yet another exacerbation of right-sided congestive heart failure with bilateral pleural effusions. She initially was on IV Lasix drip and had very good diuretic response, but then it slowed down markedly yesterday since I changed her to only twice a day furosemide 40 mg. Because her creatinine bumped up, I am going to leave the dose unchanged today. Depending on her condition and evolution of her renal function, will decide on further adjustments tomorrow. As far as the ventricular ectopy is concerned, this is probably a consequence of diuresis, even though her serum potassium and magnesium level have been replaced. Very often, aggressive diuresis causes intracerebral depletion and people are often more prone to arrhythmias. Nevertheless, she might need evaluation for underlying ischemic heart disease on outpatient basis.
[2016-09-13] MEDS: ADVAIR DISKUS 250/50 INH PWD INH SCH ×2 (08:05→19:57)
[2016-09-13] MEDS: ASPIRIN 81 MG ENTERIC TAB PO SCH (08:32)
[2016-09-13] MEDS: MAGNESIUM OXIDE 400 MG TAB (MAG-OX) PO SCH ×2 (08:33→20:26)
[2016-09-13] MEDS: SPIRONOLACTONE 25 MG TAB PO SCH (08:33)
[2016-09-13] MEDS: FUROSEMIDE 40 MG/4 ML VIAL (J1940) IV SCH ×2 (08:34→17:50)
[2016-09-13 12:00] VITALS: BP 93/53
--- NOTE | 2016-09-13 15:29 | IPNPDOC ---
Text Note Date of Service The patient was seen on 09/13/16. NOTE Subjective: Dyspnea continues to improve. 5 beats of NSVT, however patient was asymptomatic. Denies CP/palpitations. Objective: Vitals: (see below) General: No acute distress, laying comfortably in bed. HEENT: Moist mucous membranes. Neck: No JVD or lymphadenopathy Cardiac: RRR, No murmurs Pulm: Coarse crackles b/l bases. No wheezing, rhonchi Abd: NT/ND + BS Ext: 1+ pitting edema BLE. No cyanosis Labs (see below) Images: CT Chest 09/08/16 Impression: Large right and moderate left pleural effusions with associated elements of basilar, right middle lobe, and lingular atelectasis /consolidations. Findings may be related to cardiac dysfunction with cardiomegaly and atherosclerotic changes noted. Echocardiogram 09/09/16 IMPRESSION: 1. Normal global left ventricular systolic and diastolic function. 2. Aortic valve sclerosis without stenosis or aortic regurgitation. 3. Mitral annulus calcification with mild to moderate mitral regurgitation and mild calcific mitral stenosis. 4. Mild tricuspid regurgitation with mild pulmonary hypertension. 5. Trace to small pericardial effusion noted, no evidence of cardiac tamponade. Assessment/Plan 1. Acute decompensated diastolic heart failure with bilateral pleural effusions. Status post Lasix drip. Tolerated well. Now on Lasix IV twice a day. Cardizem per cardio. Echocardiogram see above. Also continued on spironolactone. Appreciate cardiology input. 2. History of recurrent bilateral pleural effusions likely secondary to decompensated heart failure. Patient has been noncompliant outpatient. She does have her Lasix discontinued when her blood pressure is relatively low outpatient. Pulmonology had been consulted with recommendations to continue diuresis and to hold off on thoracentesis at this point. Afebrile. 3. NSVT - cont to monitor on tele. K>4, Mg>2. Cont to monitor. 4. CKD stage III- stable. Avoid nephrotoxins. 5. Hypertension- stable. On Lasix IV twice a day. Had not been tolerating Cardizem given her soft blood pressures. 6. COPD on 2 L at home at night. Stable continue nebs DVT prophy: Heparin subcutaneous VS,Fishbone, I+O VS, Fishbone, I+O Laboratory Tests 09/12/16 18:22 Calcium Level 8.4 L 09/13/16 05:05 Calcium Level 8.2 L, Red Blood Count 3.55 L, Mean Corpuscular Volume 94.6, Mean Corpuscular Hemoglobin 30.2, Mean Corpuscular Hemoglobin Concent 32.0, Red Cell Distribution Width 13.9, Aspartate Amino Transf (AST/SGOT) 15, Alanine Aminotransferase (ALT/SGPT) 13, Alkaline Phosphatase 106, Total Bilirubin 0.3, Total Protein 6.0 L, Albumin 2.2 L Vital Signs Date Time Temp Pulse Resp B/P (MAP) Pulse Ox O2 Delivery O2 Flow Rate FiO2 09/13/16 12:00 97.2 77 22 93/53 (66) 98 Nasal Cannula 2.0 I&O- Last 24 Hours up to 6 AM 09/13/16 06:00 Intake Total 1515 ml Output Total 1775 ml Balance -260 ml FILIPPO REDDING MD September 13, 2016 15:29
[2016-09-13 15:30] VITALS: BP 116/69
[2016-09-13] MEDS ORDERED: SODIUM CHLORIDE NASAL 0.65% SPRAY BTL (OCEAN) PRN (15:45)
[2016-09-13 20:00] VITALS: BP 132/62
[2016-09-13] MEDS ORDERED: SLF 3 ML SYR IV PRN (23:00)
[2016-09-14] VITALS (7 sets, daily range): BP systolic 104–129; BP diastolic 54–68
[2016-09-14] MEDS: IPRATROPIUM 0.5MG/ALBUTEROL 2.5MG INH SOL UD 3ML (DUONEB)(J7620) NEB SCH ×4 (01:43→20:00)
[2016-09-14] MEDS: SLF 3 ML SYR IV SCH ×3 (04:59→21:20)
[2016-09-14] MEDS: HEPARIN SOD (PORCINE) 5000 UNITS/ML VIAL SQ SCH ×3 (05:05→21:19)
[2016-09-14 05:45] LABS: MEAN CORPUSCULAR HEMOGLOBIN 30.5 pg (27.0-33.0); MEAN CORPUSCULAR HGB CONC 32.2 g/dl (32.0-36.5); MEAN CORPUSCULAR VOLUME 94.8 fl (80.0-96.0); RED CELL DISTRIBUTION WIDTH 13.8 % (11.5-14.5)
[2016-09-14 05:59] LABS: ALBUMIN 2.3 GM/DL (3.2-5.2); ALBUMIN/GLOBULIN RATIO 0.59 (1.00-1.93); BILIRUBIN,TOTAL 0.3 MG/DL (0.2-1.0); CALCIUM LEVEL 8.4 MG/DL (8.8-10.2); CREATININE FOR GFR 1.54 MG/DL (0.55-1.02); GLOMERULAR FILTRATION RATE 34.7 (>39); MAGNESIUM LEVEL 2.3 MG/DL (1.8-2.4); POTASSIUM SERUM 4.3 MEQ/L (3.5-5.1); TOTAL PROTEIN 6.2 GM/DL (6.4-8.2)
[2016-09-14] MEDS: ADVAIR DISKUS 250/50 INH PWD INH SCH ×2 (07:44→20:23)
--- NOTE | 2016-09-14 08:47 | IPN ---
DATE: 09/14/2016 Mrs. Redman tells me that she is feeling better and she wants to go home. She says that even though she is not completely dyspnea free, there has been marked improvement. She was able to ambulate without major difficulty. Denies any chest pain or palpitations. Review of telemetry monitoring reveals frequent atrial as well as ventricular ectopy. She continues to have daily episodes of nonsustained ventricular tachycardia. Vital Signs: Blood pressure 104/59. Heart rate is mid 50s and 60s. She is afebrile. Saturation is in mid 90s on 2 liters of oxygen. Fluid balance yesterday was documented a negative 1200, but the weight is unchanged. I suspect that the intake part was not well documented. Her jugular venous pulse (JVP) does not appear much elevated, though lungs are reasonably clear to auscultation in upper two thirds, but both bases are still diminished to auscultation indicative of ongoing pleural effusions. Abdomen is soft, nontender. There is no peripheral edema. Neurologically, she is intact. LABORATORY: Hemoglobin 11, hematocrit 34. Basic metabolic panel reveals potassium 4.3, BUN 42, creatinine 1.5 and GFR calculated 35. Glucose is 120 and magnesium 2.3. ASSESSMENT/PLAN Mrs. Redman is a 76-year-old female who presented with bilateral pleural effusions that was the case previously. It is believed that it is principally due to right-sided heart failure as a consequence of underlying chronic obstructive pulmonary disease (COPD). Initially, she was given Lasix drip, a drip that led to very profound diuretic response, but in the last two days, she has been receiving furosemide 40 mg IV twice a day plus spironolactone 25 mg. I am going to obtain a chest x-ray and order a BNP for tomorrow I think it would be acceptable if the patient goes home, even without complete elimination of pleural effusions, as long as we can demonstrate that the trend is in the right direction. She needs to be discharged on a reasonably high dose of diuretics. My personal preference would be for torsemide and I would probably give her at least 50 mg daily together with spironolactone. She will need close followup. She follows in [place].
[2016-09-14] MEDS: ASPIRIN 81 MG ENTERIC TAB PO SCH (09:11)
[2016-09-14] MEDS: SPIRONOLACTONE 25 MG TAB PO SCH (09:11)
[2016-09-14] MEDS: MAGNESIUM OXIDE 400 MG TAB (MAG-OX) PO SCH ×2 (09:12→21:19)
[2016-09-14] MEDS: FUROSEMIDE 40 MG/4 ML VIAL (J1940) IV SCH ×2 (09:23→17:56)
--- NOTE | 2016-09-14 09:28 | REP ---
REASON: Followup pleural effusion. There are bilateral lung base opacities status quo allowing for the differences in the technical factors between the exams. There is cardiomegaly. There are no new abnormal opacities. There is no change in the osseous structures. IMPRESSION: No significant change from the prior exam. Signed by Rodolfo Shearer DO 09/14/2016 10:14 A
--- NOTE | 2016-09-14 14:13 | IPNPDOC ---
Text Note Date of Service The patient was seen on 09/14/16. NOTE Subjective: Dyspnea improving, and patient ambulating. Denies CP/palpitations. Objective: Vitals: (see below) General: No acute distress, laying comfortably in bed. HEENT: Moist mucous membranes. Neck: No JVD or lymphadenopathy Cardiac: RRR, No murmurs Pulm: Coarse crackles b/l bases. No wheezing, rhonchi Abd: NT/ND + BS Ext: 1+ pitting edema BLE, improved. No cyanosis Labs (see below) Images: CT Chest 09/08/16 Impression: Large right and moderate left pleural effusions with associated elements of basilar, right middle lobe, and lingular atelectasis /consolidations. Findings may be related to cardiac dysfunction with cardiomegaly and atherosclerotic changes noted. Echocardiogram 09/09/16 IMPRESSION: 1. Normal global left ventricular systolic and diastolic function. 2. Aortic valve sclerosis without stenosis or aortic regurgitation. 3. Mitral annulus calcification with mild to moderate mitral regurgitation and mild calcific mitral stenosis. 4. Mild tricuspid regurgitation with mild pulmonary hypertension. 5. Trace to small pericardial effusion noted, no evidence of cardiac tamponade. Assessment/Plan 1. Acute decompensated diastolic heart failure with bilateral pleural effusions. Status post Lasix drip. Tolerated well. Now on Lasix IV twice a day. Echocardiogram see above. Also continued on spironolactone. Appreciate cardiology input. 2. History of recurrent bilateral pleural effusions likely secondary to decompensated heart failure. Patient has been noncompliant outpatient. She does have her Lasix discontinued when her blood pressure is relatively low outpatient. Pulmonology had been consulted with recommendations to continue diuresis and to hold off on thoracentesis at this point. Afebrile. 3. NSVT - cont to monitor on tele. K>4, Mg>2. Cont to monitor. 4. CKD stage III- stable. Avoid nephrotoxins. 5. Hypertension- stable. On Lasix twice a day. 6. COPD on 2 L at home at night. Stable continue nebs DVT prophy: Heparin subcutaneous Plan for d/c in the next 24-48hr if continues to improve. VS,Fishbone, I+O VS, Fishbone, I+O Laboratory Tests 09/14/16 05:16 Red Blood Count 3.62 L, Mean Corpuscular Volume 94.8, Mean Corpuscular Hemoglobin 30.5, Mean Corpuscular Hemoglobin Concent 32.2, Red Cell Distribution Width 13.8, Calcium Level 8.4 L, Aspartate Amino Transf (AST/SGOT) 14 L, Alanine Aminotransferase (ALT/SGPT) 13, Alkaline Phosphatase 99, Total Bilirubin 0.3, Total Protein 6.2 L, Albumin 2.3 L Vital Signs Date Time Temp Pulse Resp B/P (MAP) Pulse Ox O2 Delivery O2 Flow Rate FiO2 09/14/16 12:00 97.8 69 22 129/62 (84) 97 Nasal Cannula 2.0 I&O- Last 24 Hours up to 6 AM 09/14/16 06:00 Intake Total 720 ml Output Total 2250 ml Balance -1530 ml FILIPPO REDDING MD Sep 14, 2016 14:13
[2016-09-15 00:45] VITALS: BP 105/55
[2016-09-15] MEDS: IPRATROPIUM 0.5MG/ALBUTEROL 2.5MG INH SOL UD 3ML (DUONEB)(J7620) NEB SCH ×2 (01:28→08:00)
[2016-09-15 04:05] VITALS: BP 113/64
[2016-09-15] MEDS: HEPARIN SOD (PORCINE) 5000 UNITS/ML VIAL SQ SCH (05:22)
[2016-09-15] MEDS: SLF 3 ML SYR IV SCH (05:22)
[2016-09-15 05:54] LABS: MEAN CORPUSCULAR HEMOGLOBIN 31.2 pg (27.0-33.0); MEAN CORPUSCULAR HGB CONC 33.2 g/dl (32.0-36.5); MEAN CORPUSCULAR VOLUME 93.9 fl (80.0-96.0); RED CELL DISTRIBUTION WIDTH 13.9 % (11.5-14.5); WHITE BLOOD COUNT 4.6 K/mm3 (4.0-10.0)
[2016-09-15 06:08] LABS: ALBUMIN 2.3 GM/DL (3.2-5.2); ALBUMIN/GLOBULIN RATIO 0.61 (1.00-1.93); BILIRUBIN,TOTAL 0.3 MG/DL (0.2-1.0); CALCIUM LEVEL 8.3 MG/DL (8.8-10.2); CREATININE FOR GFR 1.52 MG/DL (0.55-1.02); GLOMERULAR FILTRATION RATE 35.2 (>39); MAGNESIUM LEVEL 2.6 MG/DL (1.8-2.4); TOTAL PROTEIN 6.1 GM/DL (6.4-8.2)
[2016-09-15] MEDS: ADVAIR DISKUS 250/50 INH PWD INH SCH (08:45)
[2016-09-15] MEDS: ASPIRIN 81 MG ENTERIC TAB PO SCH (08:48)
--- NOTE | 2016-09-15 08:48 | IPN ---
DATE: 09/15/2016 Mrs. Redman is feeling better. She was able to ambulate around the progressive care unit (PCU) and she wants to go home. Her chest x-ray yesterday though revealed ongoing bilateral pleural effusions, right larger than left, even though it is a different technique so it is difficult to compare to films. Vital Signs: Blood pressure 113/64. Heart rate usually in the 70s. She is afebrile. Saturation 93% on 2 liters of oxygen. Fluid balance yesterday was documented about 1300 negative and her weight is 65.6 kg which would correspond to approximately 5 kg weight loss since admission. Her jugular venous pulse (JVP) is still somewhat elevated, but just barely above the clavicle in sitting position. Lungs are clear to auscultation in upper 2/3 and the bottom 1/3 especially on the right is clearly diminished. Heart exam with regular rhythm. No gallop. Telemetry monitoring yesterday did not reveal any arrhythmias. Abdomen soft, nontender. There is no peripheral edema. Laboratory-robison, hemoglobin 10.7, hematocrit 32, platelet count 198,000. Basic metabolic panel: Potassium 4.0, BUN 39, creatinine 1.5, GFR 35, but her BNP is still 3800. ASSESSMENT/PLAN: Mrs. Redman is a 76-year-old female who has chronic obstructive pulmonary disease (COPD) and now presents with yet another exacerbation of congestive heart failure with bilateral pleural effusions. She has been responding quite favorably to diuretics and even though she is certainly not well compensated yet she is moving in the right direction. She feels subjectively much better. Consequently, I do not have strong objections against her being discharged home provided early followup with her physician can be arranged for next week. I think that she should be discharged on high dose of diuretics. I would advocate to use torsemide at probably at least 50 mg a day with concomitant use of spironolactone. Otherwise, I do not have any additional recommendations. She had several episodes of nonsustained ventricular tachycardia while in the hospital and consequently I do recommend that she gets again evaluated for possibility of underlying coronary artery disease. She resides in the [facility] and has been followed by cardiology from [place] and wants to return to them.
[2016-09-15] MEDS: SPIRONOLACTONE 25 MG TAB PO SCH (08:49)
[2016-09-15] MEDS: MAGNESIUM OXIDE 400 MG TAB (MAG-OX) PO SCH (08:49)
[2016-09-15] MEDS: FUROSEMIDE 40 MG/4 ML VIAL (J1940) IV SCH (08:49)
[2016-09-15] MEDS ORDERED: SPIR25TA2 PO (10:28)
[2016-09-15] MEDS ORDERED: TORS100T PO (10:28)
--- NOTE | 2016-09-15 14:03 | DS.PDOC ---
Discharge Summary General Date of Admission September 08, 2016 at 20:04 Date of Discharge 09/15/16 Attending Physician: FILIPPO REDDING MD Specialist/Consultants Involve: Sherita Sheppard MD Discharge Summary PROCEDURES PERFORMED DURING STAY: None. ADMITTING/DISCHARGE DIAGNOSES: 1. Acute decompensated diastolic heart failure with bilateral pleural effusions 2. History of recurrent bilateral pleural effusions likely secondary to decompensated heart failure 3. NSVT 4. CKD stage III- 5. Hypertension 6. COPD on 2 L at home COMPLICATIONS/CHIEF COMPLAINT: Pleural Effusion Due To Chf. HISTORY OF PRESENT ILLNESS/HOSPITAL COURSE: . This is a 68-year-old female past medical history of diastolic heart failure, CK D, hypertension, COPD on 2 L home O2 who presents complaining of dyspnea. Patient has had borderline low blood pressures in the outpatient setting and had her diuretics discontinued. The patient continued to accumulate volume and presented with decompensated heart failure and significant bilateral pleural effusions. Patient responded well to Lasix drip followed by IV and transitioned to torsemide by mouth. Over the course of hospitalization patient was evaluated by cardiology. Patient also had a few runs of nonsustained V. tach all being diuresed. Patient was asymptomatic. Patient's currently responding well to diuresis and will continue to be diuresing outpatient setting she follows up with her architect. Patient will also need outpatient cardiology follow-up for ischemic workup given and these nonsustained V. tach. episodes. DISCHARGE MEDICATIONS: Please see below. ALLERGIES: Please see below. PHYSICAL EXAMINATION ON DISCHARGE: VITAL SIGNS: Please see below. General: No acute distress, laying comfortably in bed. HEENT: Moist mucous membranes. Neck: No JVD or lymphadenopathy Cardiac: RRR, No murmurs Pulm: Coarse crackles b/l bases. No wheezing, rhonchi Abd: NT/ND + BS Ext: 1+ pitting edema BLE, improved. No cyanosis LABORATORY DATA: Please see below. IMAGING: CT Chest 09/08/16 Impression: Large right and moderate left pleural effusions with associated elements of basilar, right middle lobe, and lingular atelectasis /consolidations. Findings may be related to cardiac dysfunction with cardiomegaly and atherosclerotic changes noted. Echocardiogram 09/09/16 IMPRESSION: 1. Normal global left ventricular systolic and diastolic function. 2. Aortic valve sclerosis without stenosis or aortic regurgitation. 3. Mitral annulus calcification with mild to moderate mitral regurgitation and mild calcific mitral stenosis. 4. Mild tricuspid regurgitation with mild pulmonary hypertension. 5. Trace to small pericardial effusion noted, no evidence of cardiac tamponade. PROGNOSIS: Guarded ACTIVITY: As tolerated. DIET: Low Na DISCHARGE PLAN/DISPOSITION: D/c home DISCHARGE INSTRUCTIONS: 1. F/u with PCP and [facility] in 1-2 weeks. Will need cardio f/u for ischemic workup. DISCHARGE CONDITION: Stable. TIME SPENT ON DISCHARGE: Greater than 30 minutes. Vital Signs/I&Os Vital Signs Date Time Temp Pulse Resp B/P (MAP) Pulse Ox O2 Delivery O2 Flow Rate FiO2 09/15/16 07:48 97.1 75 20 93 Nasal Cannula 2.0 09/15/16 04:05 113/64 (80) I&O- Last 24 Hours up to 6 AM 09/15/16 06:00 Intake Total 630 ml Output Total 1475 ml Balance -845 ml Laboratory Data Labs 24H Laboratory Tests 2 09/14/16 17:51: Bedside Glucose (Misc Panel) 124H 09/15/16 05:16: Anion Gap 6L, Glomerular Filtration Rate 35.2L, Blood Urea Nitrogen 39H, Creatinine 1.52H, Sodium Level 140, Potassium Level 4.0, Chloride Level 98, Carbon Dioxide Level 36H, Calcium Level 8.3L, Aspartate Amino Transf (AST/SGOT) 14L, Alanine Aminotransferase (ALT/SGPT) 15, Alkaline Phosphatase 96, Total Bilirubin 0.3, Total Protein 6.1L, Albumin 2.3L, Magnesium Level 2.6H, B-Type Natriuretic Peptide 3830H, Albumin/Globulin Ratio 0.61L CBC/BMP Laboratory Tests 09/15/16 05:16 Red Blood Count 3.42 L, Mean Corpuscular Volume 93.9, Mean Corpuscular Hemoglobin 31.2, Mean Corpuscular Hemoglobin Concent 33.2, Red Cell Distribution Width 13.9, Calcium Level 8.3 L, Aspartate Amino Transf (AST/SGOT) 14 L, Alanine Aminotransferase (ALT/SGPT) 15, Alkaline Phosphatase 96, Total Bilirubin 0.3, Total Protein 6.1 L, Albumin 2.3 L FSBS Laboratory Tests Test 09/14/16 17:51 Range/Units Bedside Glucose (Misc Panel) 124 83-110 MG/DL Microbiology Microbiology 09/08/16 Blood Culture - Final, Complete NO GROWTH AFTER 5 DAYS Discharge Medications Scheduled Aspirin (Aspir-81) 81 Mg Tab, 81 MG PO DAILY, (Reported) Salmeterol/Fluticasone (Advair Diskus 250-50 Mcg/Dose) 14 Puff/Inhaler Aerp, 1 PUFF INH BID, (Reported) Spironolactone (Spironolactone) 25 Mg Tab, 25 MG PO QAM Torsemide (Torsemide) 100 Mg Tab, 50 MG PO DAILY Scheduled PRN (Flonase Allergy Relief) 50 Mcg/Act Spr, 1 SPRAY NA DAILY PRN for RUNNY NOSE, ( Reported) Albuterol Sulfate (Ventolin Hfa) 200 Puff/8 Gm Aers, 2 PUFF INH QIDP PRN for WHEEZING, (Reported) Allergies Coded Allergies: Amlodipine (Verified Allergy, Mild, 09/08/16) Ezetimibe (Verified Allergy, Mild, 09/08/16) Fluvastatin (Verified Allergy, Mild, 09/08/16) [id number] Ethyl Esters (Verified Allergy, Mild, 09/08/16) Beta Adrenergic Blockers (Unverified Allergy, Unknown, CHF, 09/08/16) FILIPPO REDDING MD Sep 15, 2016 14:03
== END 2016-09-15 13:38 | disposition home or self-care (01) | DRG 291 ==
LOC: EDBD 16:54 → M ED 18:38 → M ED INP 20:04 → M PCU 22:43
PROVIDERS: ADMIT Internal Medicine; ATTEND Internal Medicine
DX: I13.0 Hypertensive heart and chronic kidney disease with heart failure and stage 1 through stage 4 chronic kidney disease, or unspecified chronic kidney disease (principal); I50.33 Acute on chronic diastolic (congestive) heart failure; J90 Pleural effusion, not elsewhere classified; I47.1 Supraventricular tachycardia; N18.3 Chronic kidney disease, stage 3 (moderate); J44.9 Chronic obstructive pulmonary disease, unspecified; Z99.81 Dependence on supplemental oxygen; Z79.82 Long term (current) use of aspirin; Z79.899 Other long term (current) drug therapy; Z88.8 Allergy status to other drugs, medicaments and biological substances; Z90.711 Acquired absence of uterus with remaining cervical stump; Z87.891 Personal history of nicotine dependence; Z91.19 Patient's noncompliance with other medical treatment and regimen

== ENCOUNTER 2016-10-08 13:48 | Emergency (ER) | payer MEDICARE ==
[~2016-10-08] VITALS: Ht 157.5 cm; Wt 64.5 kg
[~2016-10-08 13:48] MED LIST changes: +FLON1SPR; +SPIR25TA2 PO; +TORS100T PO; +VALS320T3 PO; +VALS80TA PO
[2016-10-08] MEDS ORDERED: OXYGEN (14:03)
[2016-10-08] MEDS ORDERED: LASI20TA PO (14:03)
[2016-10-08] MEDS ORDERED: METO25TA PO (14:03)
[2016-10-08] MEDS ORDERED: FUROSEMIDE 40 MG/4 ML VIAL (J1940) IV ONE (14:45)
[2016-10-08 15:05] LABS: BASO % 0.4 % (0.0-1.0); EOS % 0.4 % (0.0-3.0); LARGE UNSTAINED CELL # 0.2 K/mm3 (0.0-0.4); LARGE UNSTAINED CELL % 1.8 % (0.0-4.0); LYMPH # 0.4 K/mm3 (1.5-4.5); LYMPH % 4.1 % (24.0-44.0); MEAN CORPUSCULAR HEMOGLOBIN 30.1 pg (27.0-33.0); MEAN CORPUSCULAR HGB CONC 32.7 g/dl (32.0-36.5); MEAN CORPUSCULAR VOLUME 91.9 fl (80.0-96.0); MONO # 0.4 K/mm3 (0.0-0.8); MONO % 4.5 % (0.0-5.0); NEUTROPHILS # 8.7 K/mm3 (1.8-7.7); NEUTROPHILS % 88.8 % (36.0-66.0); PLATELET COUNT, AUTOMATED 236 k/mm3 (150-450); RED CELL DISTRIBUTION WIDTH 13.9 % (11.5-14.5); WHITE BLOOD COUNT 9.8 K/mm3 (4.0-10.0)
[2016-10-08 15:24] LABS: ALBUMIN 2.5 GM/DL (3.2-5.2); ALBUMIN/GLOBULIN RATIO 0.64 (1.00-1.93); BILIRUBIN,DIRECT 0.1 MG/DL (0.0-0.2); BILIRUBIN,TOTAL 0.4 MG/DL (0.2-1.0); CALCIUM LEVEL 8.5 MG/DL (8.8-10.2); CREATININE FOR GFR 1.37 MG/DL (0.55-1.02); GLOMERULAR FILTRATION RATE 39.7 (>39); POTASSIUM SERUM 3.2 MEQ/L (3.5-5.1); TOTAL PROTEIN 6.4 GM/DL (6.4-8.2)
[2016-10-08 15:26] LABS: ERYTHROCYTE SEDIMENTATION RATE 72 mm/hr (0-30)
[2016-10-08] MEDS ORDERED: POTASSIUM CHLORIDE 10 MEQ SR TABLET PO ONE (16:00)
--- NOTE | 2016-10-08 16:14 | ECGEPIP ---
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
--- NOTE | 2016-10-08 16:38 | REP ---
BILATERAL LOWER EXTREMITY DOPPLER VENOUS ULTRASOUND: Comparison: Left leg ultrasound: 01/04/2016. Clinical history: Lower extremity swelling, evaluate for DVT. Technique: The deep venous system of the bilateral lower extremities is evaluated with perea scale imaging, compression ultrasound, color imaging and duplex Doppler interrogation. Examination from the groin through the popliteal fossa into the proximal calf. Findings: There is full compressibility from the common femoral vein in the inguinal region through the popliteal vein on both sides. Color imaging confirms patency throughout the course of the deep venous system. There is respiratory variation and augmented flow at all levels. Impression: 1. No Doppler venous ultrasound evidence of DVT in the bilateral lower extremities. Signed by Gordo Hopper MD 10/08/2016 04:30 P
[2016-10-08 17:10] VITALS: BP 113/58
[2016-10-08] MEDS ORDERED: DOXY100T16 PO (17:46)
[2016-10-08] MEDS ORDERED: DOXYCYCLINE HYCLATE 100 MG TAB PO ONE (18:00)
--- NOTE | 2016-10-09 12:11 | REP ---
AP PORTABLE CHEST: 10/08/2016. Clinical history: Dyspnea. Comparison 09/14/2016, 09/09/2016, CT chest 09/08/2016. Findings: Worsening of bilateral effusions with alveolar and interstitial edema and/or infiltrates right greater than left again seen. Cardiac silhouette obscured but certainly enlarged as on previous studies. Axillary surgical clips on both sides. Calcified aorta at the arch, unchanged. Airway midline. Impression: 1. Cardiomegaly with worsening bilateral effusions and alveolar edema/infiltrates, right greater than left for all of this. Progressive congestive failure. Signed by Gordo Hopper MD 10/09/2016 09:32 A
[2016-10-30] MEDS ORDERED: ELIQ2.5T PO (10:29)
== END 2016-10-08 18:19 | disposition home or self-care (01) ==
LOC: M ED 14:27
DX: L03.115 Cellulitis of right lower limb (principal); R60.0 Localized edema; I26.09 Other pulmonary embolism with acute cor pulmonale; I10 Essential (primary) hypertension; J44.9 Chronic obstructive pulmonary disease, unspecified; Z87.891 Personal history of nicotine dependence; Z99.81 Dependence on supplemental oxygen
CPT/HCPCS: 36415; 71010; 80048; 80076; 82550; 82553; 83605; 83880; 84484; 85025; 85652; 86140; 87040; 93005; 93041; 93970; 94760; 96374; 99284; J1940

== ENCOUNTER 2016-10-21 19:37 | Inpatient (IN) | payer MEDICARE ==
[~2016-10-21] VITALS: Ht 157.5 cm; Wt 62.6 kg
[2016-10-21 00:30] VITALS: BP 111/63
[~2016-10-21 19:37] MED LIST changes: +DOXY100T16 PO; +LASI20TA PO; +METO25TA PO; +OXYGEN
[2016-10-21] MEDS ORDERED: POTA10CA PO (20:21)
[2016-10-21] MEDS ORDERED: FUROSEMIDE 100 MG/10 ML VIAL (J1940) IV ONE (21:00)
[2016-10-21] MEDS ORDERED: NITROGLYCERIN 2% OINT 1 GM *U/D* PKT TOP ONE ×2 (21:00→22:15)
[2016-10-21] MEDS ORDERED: DIGOXIN INJ 0.5 MG/2 ML AMP (J1160) IV STA (21:14)
[2016-10-21] MEDS ORDERED: DIGOXIN 0.25 MG TAB PO STA (21:14)
--- NOTE | 2016-10-21 21:17 | REP ---
Clinical: Dyspnea. Technique: PA and lateral. Comparison: 10/08/2016. Findings: Cardiomegaly is appreciated and CHF/pulmonary vascular congestion cannot be excluded. Findings include bilateral opacities and moderate pleural effusions (right greater than left). No pneumothorax. Skeletal structures demonstrate age-related osteopenia and degenerative change. Evidence for prior bilateral axillary node dissection. Impression: Cardiomegaly and CHF with bilateral opacities and effusions (right greater than left). Signed by Chirag Javier MD 10/21/2016 09:09 P
--- NOTE | 2016-10-21 21:31 | ECGEPIP ---
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
[2016-10-21 21:55] LABS: BASO % 0.3 % (0.0-1.0); EOS % 0.5 % (0.0-3.0); LARGE UNSTAINED CELL # 0.1 K/mm3 (0.0-0.4); LARGE UNSTAINED CELL % 1.2 % (0.0-4.0); LYMPH # 0.6 K/mm3 (1.5-4.5); LYMPH % 5.1 % (24.0-44.0); MEAN CORPUSCULAR HEMOGLOBIN 29.1 pg (27.0-33.0); MEAN CORPUSCULAR HGB CONC 32.2 g/dl (32.0-36.5); MEAN CORPUSCULAR VOLUME 90.6 fl (80.0-96.0); MONO # 0.4 K/mm3 (0.0-0.8); MONO % 4.5 % (0.0-5.0); NEUTROPHILS # 8.2 K/mm3 (1.8-7.7); NEUTROPHILS % 88.4 % (36.0-66.0); PLATELET COUNT, AUTOMATED 257 k/mm3 (150-450); RED CELL DISTRIBUTION WIDTH 14.6 % (11.5-14.5); WHITE BLOOD COUNT 9.3 K/mm3 (4.0-10.0)
[2016-10-21 22:06] LABS: CALCIUM LEVEL 8.4 MG/DL (8.8-10.2); CREATININE FOR GFR 1.63 MG/DL (0.55-1.02); GLOMERULAR FILTRATION RATE 32.5 (>39); POTASSIUM SERUM 3.4 MEQ/L (3.5-5.1)
--- NOTE | 2016-10-21 23:40 | HPEPDOC ---
General Date of Admission Oct 21, 2016 at 22:54 Chief Complaint The patient is a 76-year-old female admitted with a reason for visit of Atrial Fibrillation. History of Present Illness Ms. Redman is a 76 y/o female with past medical history of CKD III, COPD on home 2 L O2, subclavian steal syndrome, HTN, Cor Pulmonale and recurrent pleural effusion from CHF who presents to ED with CC of increasing LE swelling and SOB for the past 2-3 days associated with a 5 week history of productive cough of yellow sputum. Pt states that this morning she went to get out of bed and was unable to bear weight on her feet, especially the right one due to increased pain from swelling. She also noted that her breathing was more short and she couldn't quite catch her breath. Of note, the pt was admitted in August 2016 for a very similar presentation of SOB and worsening swelling, she was admitted for pleural effusion's 2/2 her CHF. She also came to the ED end of September 2016 for cellulitis of her right foot. The pt denies CP or palpitations, abdominal pain, n/v, diarrhea, pain with urination or defecation nor blood in urine or stool. She does admit that the SOB is worse with exertion and laying flat. Denies fever, muscle ache and chills. Her only medication change has been the add on of Potassium three days ago, she takes her medications regularly including her lasix. Pt wears home O2 2L fairly consistently, only removing it when she has to use the restroom. She has no other active complaints. Home Medications Scheduled Apixaban Base (Eliquis) 2.5 Mg Tab, 2.5 MG PO BID Aspirin (Aspir-81) 81 Mg Tab, 81 MG PO DAILY, (Reported) Digoxin (Digoxin) 0.125 Mg Tab, 0.125 MG PO DAILY Furosemide (Lasix) 40 Mg Tab, 40 MG PO BID Metolazone (Metolazone) 5 Mg Tab, 5 MG PO Q2D every other day Potassium Chloride (Klor-Con M10) 10 Meq Tabcr, 10 MEQ PO BID, (Reported) Salmeterol/Fluticasone (Advair Diskus 250-50 Mcg/Dose) 14 Puff/Inhaler Aerp, 1 PUFF INH BID, (Reported) Scheduled PRN (Flonase Allergy Relief) 50 Mcg/Act Spr, 1 SPRAY NA DAILY PRN for RUNNY NOSE, ( Reported) Albuterol Sulfate (Ventolin Hfa) 200 Puff/8 Gm Aers, 2 PUFF INH QIDP PRN for WHEEZING, (Reported) Albuterol/Ipratropium (Ipratropium [place]/Albut 0.5-2.5 (3) mg/3Ml) 1 Ria Ria, 3 ML NEB TIDP PRN for SOB/WHEEZING Allergies Coded Allergies: Amlodipine (Verified Allergy, Mild, 09/08/16) Ezetimibe (Verified Allergy, Mild, 09/08/16) Fluvastatin (Verified Allergy, Mild, 09/08/16) Nvlhd-[id number] Ethyl Esters (Verified Allergy, Mild, 09/08/16) Beta Adrenergic Blockers (Unverified Allergy, Unknown, CHF, 09/08/16) Past Medical History Medical History CKD III COPD subclavian steal syndrome HTN cor pulmonale recurrent pleural effusion from CHF Family History Significant Family History: No pertinent family hx Social History * Smoker: Denies Alcohol: Denies Drugs: denies Review of Symptoms Constitutional: Reports: Malaise, Denies: Chills, Fever, Night Sweats, Weakness Eyes: Denies: Vision change, Conjunctivae inflammation ENT: Denies: Head Aches Skin: Reports: Breakdown (right bottom of foot, wart), Denies: Rash, Lesions, Jaundice, Bruising Pulmonary: Reports: Dyspnea, Cough, Denies: Pleuritic Chest Pain Cardiovascular: Reports: Orthopnea, Paroxysmal Noc. Dyspnea, Edema, Denies: Chest Pain, Palpitations, Lt Headedness Gastrointestinal: Denies: Nausea, Vomiting, Abdominal Pain, Diarrhea, Constipation, Melena, Hematochezia Genitourinary: Denies: Dysuria, Frequency Musculoskeletal: Denies: Neck Pain Neurological: Denies: Weakness, Numbness Psych: Reports: Mood Normal Physical Examination General Exam: Positive: Alert, Cooperative, No Acute Distress Eye Exam: Positive: Conjunctiva & lids normal, EOMI, Negative: Sclera icteric ENT Exam: Positive: Atraumatic Neck Exam: Positive: Supple Chest Exam: Positive: Rales, Rhonchi, Diminished (all lung lawson, generalized) , Negative: Clear to auscultation, Normal air movement, Wheezing Heart Exam: Positive: Tachycardic, Normal S1, Normal S2, Negative: Murmurs Telemetry: Positive: Atrial fibrillation Abdomen Exam: Positive: Normal bowel sounds, Soft, Negative: Tenderness, Hepatospenomegaly, Mass Extremity Exam: Positive: Edema (+2 BL LE), Negative: Clubbing, Cyanosis Psych Exam: Positive: Mental status NL Vital Signs Vital Signs Date Time Temp Pulse Resp B/P (MAP) Pulse Ox O2 Delivery O2 Flow Rate FiO2 10/21/16 22:52 102 98 10/21/16 21:23 125/85 (98) 10/21/16 20:31 Nasal Cannula 2.0 10/21/16 20:00 99.6 24 Laboratory Data Labs 24H Laboratory Tests 2 10/21/16 21:23: White Blood Count 9.3, Red Blood Count 3.77L, Hemoglobin 11.0L, Hematocrit 34.1L , Mean Corpuscular Volume 90.6, Mean Corpuscular Hemoglobin 29.1, Mean Corpuscular Hemoglobin Concent 32.2, Red Cell Distribution Width 14.6H, Platelet Count 257, Neutrophils (%) (Auto) 88.4H, Lymphocytes (%) (Auto) 5.1L, Monocytes (%) (Auto) 4.5, Eosinophils (%) (Auto) 0.5, Basophils (%) (Auto) 0.3, Neutrophils # (Auto) 8.2H, Lymphocytes # (Auto) 0.6L, Monocytes # (Auto) 0.4, Eosinophils # (Auto) 0.0, Basophils # (Auto) 0.0, Large Unclassified Cells % 1.2 , Large Unclassified Cells # 0.1, Anion Gap 6L, Glomerular Filtration Rate 32.5L , Blood Urea Nitrogen 52H, Creatinine 1.63H, Sodium Level 138, Potassium Level 3.4L, Chloride Level 96L, Carbon Dioxide Level 36H, Calcium Level 8.4L, Total Creatine Kinase 30, Creatine Kinase MB 1.0, Creatine Kinase MB Relative Index 3.33, Troponin I 0.08, B-Type Natriuretic Peptide 4760H CBC/BMP Laboratory Tests 10/21/16 21:23 Red Blood Count 3.77 L, Mean Corpuscular Volume 90.6, Mean Corpuscular Hemoglobin 29.1, Mean Corpuscular Hemoglobin Concent 32.2, Red Cell Distribution Width 14.6 H, Neutrophils (%) (Auto) 88.4 H, Lymphocytes (%) (Auto ) 5.1 L, Monocytes (%) (Auto) 4.5, Eosinophils (%) (Auto) 0.5, Basophils (%) ( Auto) 0.3, Neutrophils # (Auto) 8.2 H, Lymphocytes # (Auto) 0.6 L, Monocytes # ( Auto) 0.4, Eosinophils # (Auto) 0.0, Basophils # (Auto) 0.0, Calcium Level 8.4 L , Total Creatine Kinase 30 Problems (1) Dyspnea Status: Acute Response to Treatment: Stable Problem Text: Likely 2/2 pleural effusions from CHF CXR SHOWED: Cardiomegaly and CHF with bilateral opacities and effusions (right greater than left). Continue pts home zaroxolyn & lasix therapy BNP elevated to 4760, was 5000 when pt presented to ED September 2016 Apparently on last admission, after reviewing old notes, her effusion was not drained due to her very elevated BNP and thus high likelihood of rapid re- accumulation of fluid in her lung after such a procedure being performed, thoracentesis was also held off due to low BP- pt was managed with IV lasix therapy. Sat 96% on 2L NC (2) Atrial fibrillation Status: Acute Response to Treatment: Stable Problem Text: New finding while pt in ED, showed A. fib with rate in low 100's , suspect likely 2/2 ACS, given 1x dose Digoxin in ED which broke rhythm- pt was in NSR on exam. Given HF status, will steer clear of verapamil or diltiazem. pt states that she is "allergic" to beta blockers because "they give her HF", as such we will do Digoxin .125 mg and check a level for the tomorrow AM, will allow discretion of daytime HCP for scheduling of digoxin Pt has no hx of palpations and thus has no idea when the a. fib could have begun , thus less than 48 hour onset is unknown Pt has never experienced this before- will order TSH, electrolytes and renal function WNL, first troponin neg, will trend. Would consider repeat ECHO due to novelty of a. fib. Follows with local business librarian for CHF Will make recommendation for daytime HCP to consult cardiology for aid in management of this new finding Will begin pt on rate control and anticoagulate appropriately with heparin since pt has kidney disease, will not anticoagulate with Lovenox Admit to TELE. monitored bed Pt comfortable, reports no CP or palpations (3) Pleural effusion due to CHF (congestive heart failure) Status: Acute Response to Treatment: Stable Problem Text: Will continue pts home lasix and zaroxolyn May consider pulmonology consult, will leave to discretion of daytime HCP, when pt. was admitted in September 2016, as per records, was decided against thoracentesis due to high BNP and likely rapid reaccumulation after a tap, pt also had soft BP's. Pt on exam was non-labored, saturation was 96% on 2L (4) CHF (congestive heart failure) Status: Acute Response to Treatment: Stable Problem Text: BNP elevated 4760, baseline BNP has been >5000 beginning admission August 2016 Continue home zaroxolyn and lasix Recheck BNP AM Follows with local cardiology group, Dr. Lira as per pt. Will advise cardiology consult, especially with new onset A. fib. Last ECHoO shows EF 55-60% August 2016, impression: 1. Normal global left ventricular systolic and diastolic function. 2. Aortic valve sclerosis without stenosis or aortic regurgitation. 3. Mitral annulus calcification with mild to moderate mitral regurgitation and mild calcific mitral stenosis. 4. Mild tricuspid regurgitation with mild pulmonary hypertension. 5. Trace to small pericardial effusion noted, no evidence of cardiac tamponade. (5) Hypertension Status: Chronic Response to Treatment: Stable Problem Text: stable continue home medications (6) Chronic kidney disease Status: Chronic Response to Treatment: Stable Problem Text: Creatine 1.63, baseline 1.5-1.6 Will continue to monitor (7) COPD (chronic obstructive pulmonary disease) Status: Chronic Response to Treatment: Stable Problem Text: O2 titrate 88-92% DuoNebs PRN (8) DVT prophylaxis Status: Acute Response to Treatment: Stable Problem Text: SCD TEDS Plan / VTE VTE Prophylaxis Ordered?: Yes GME ATTESTATION GME ATTESTATION My preceptor for this patient encounter was physically present in the building during the encounter and was fully available. As needed, all aspects of the patient interview, examination, medical decision making process, and medical care plan development were reviewed and approved by the preceptor. Preceptor is aware and concurs with the plan as stated in the body of this note and will attest to such by his/her cosignature. ATTENDING NOTE Pt seen and examined by me. Findings and plan reviewed with resident. Resident note reviewed agree with documented findings and plan. 1. Acute on chronic chf Continue iv lasix and metolazone Check daily wts Fluid restrict Effusions likely from chronically uncompensated HF Monitor lytes and replete K and Mg 2. COPD Continue nebs prn Maintain o2 sat 90% 3. Chronic persistent afib Continue rate control Continue AC with JOBY Mancilla DO Oct 21, 2016 23:40 Magan Chavarria MD Nov 05, 2016 01:50
[2016-10-22] MEDS ORDERED: FLUTICASONE PROP 0.05% NASAL SPRAY 16 GM (FLONASE) PRN (00:30)
[2016-10-22] MEDS ORDERED: ALBUTEROL 90 MCG/ACT 8GM HFA INHALER INH PRN (00:30)
[2016-10-22] MEDS ORDERED: IPRATROPIUM 0.5MG/ALBUTEROL 2.5MG INH SOL UD 3ML (DUONEB)(J7620) NEB PRN (00:45)
[2016-10-22] MEDS ORDERED: METOPROLOL 5 MG/5 ML VIAL IV PRN (01:00)
[2016-10-22] MEDS ORDERED: HEPARIN SOD (PORCINE) 5000 UNITS/ML VIAL SQ ONE ×2 (01:15→02:15)
[2016-10-22] MEDS: POTASSIUM CHLORIDE 10 MEQ SR TABLET PO SCH ×3 (01:26→20:34)
[2016-10-22] MEDS: METOPROLOL TART 25 MG TABLET PO SCH ×3 (02:24→20:27)
[2016-10-22] MEDS ORDERED: DIGOXIN 0.125 MG TAB PO ONE ×2 (03:00→09:00)
[2016-10-22 04:45] VITALS: BP 109/61
[2016-10-22] MEDS ORDERED: HEPARIN SOD (PORCINE) 5000 UNITS/ML VIAL IV STA (07:38)
[2016-10-22] MEDS: BUDESONIDE 0.5 MG/2 ML INHALATION SUSPENSION INH SCH ×2 (07:50→20:00)
[2016-10-22 08:00] VITALS: BP 103/52
[2016-10-22] MEDS: metOLazone 5 MG TAB PO SCH (08:03)
[2016-10-22] MEDS: FUROSEMIDE 100 MG/10 ML VIAL (J1940) IV SCH ×2 (08:03→16:16)
[2016-10-22] MEDS: ASPIRIN 81 MG ENTERIC TAB PO SCH (08:04)
[2016-10-22] MEDS ORDERED: metOLazone 2.5 MG TAB PO SCH (09:00)
[2016-10-22] MEDS ORDERED: FUROSEMIDE 40 MG TAB PO SCH (09:00)
[2016-10-22] MEDS ORDERED: ADVAIR DISKUS 250/50 INH PWD INH SCH (09:00)
[2016-10-22] MEDS: APIXABAN 2.5 MG TAB (ELIQUIS) PO SCH ×2 (09:55→20:34)
--- NOTE | 2016-10-22 10:49 | IPNPDOC ---
Subjective Date Seen The patient was seen on 10/22/16. Subjective Chief Complaint/HPI The patient is a 76-year-old female admitted with a reason for visit of Atrial Fibrillation. Events since last encounter continues to have shortness of breath and wheezing, leg swelling seems a little better, no chest pain , no abdominal pain , nausea or vomiting or diarrhea, no fever or chills. Objective Physical Examination General Exam: Positive: Alert, Cooperative, No Acute Distress Eye Exam: Positive: Conjunctiva & lids normal, EOMI, Negative: Sclera icteric ENT Exam: Positive: Atraumatic Neck Exam: Positive: Supple Chest Exam: Positive: Rales, Rhonchi, Diminished (all lung lawson, generalized) , Negative: Clear to auscultation, Normal air movement, Wheezing Heart Exam: Positive: Tachycardic, Normal S1, Normal S2, Negative: Murmurs Telemetry: Positive: Atrial fibrillation Abdomen Exam: Positive: Normal bowel sounds, Soft, Negative: Tenderness, Hepatospenomegaly, Mass Extremity Exam: Positive: Edema (+2 BL LE), Negative: Clubbing, Cyanosis Psych Exam: Positive: Mental status NL Assessment /Plan Problems (1) CHF (congestive heart failure) Status: Acute Response to Treatment: Stable Problem Text: acute exacerbation of chronic congestive heart failure mostly right heart failure due to pulmonary hypertension , copd and corpulmonale. will continue with iv lasix and metolazone. Last ECHoO shows EF 55-60% August 2016, impression: 1. Normal global left ventricular systolic and diastolic function. 2. Aortic valve sclerosis without stenosis or aortic regurgitation. 3. Mitral annulus calcification with mild to moderate mitral regurgitation and mild calcific mitral stenosis. 4. Mild tricuspid regurgitation with mild pulmonary hypertension. 5. Trace to small pericardial effusion noted, no evidence of cardiac tamponade. (2) Atrial fibrillation Status: Acute Response to Treatment: Stable Problem Text: Afib with rvr versus multifocal atrial tachycardia will get new ekg now that rate is better controlled. chronic as seen in prior ekg in september. will rate control with digoxin and metoprolol will start on eliquis. (3) Pleural effusion due to CHF (congestive heart failure) Status: Acute Response to Treatment: Stable Problem Text: Expect pleural effusion to improve with diuresis Will continue lasix and zaroxolyn (4) Hypertension Status: Chronic Response to Treatment: Stable Problem Text: stable continue home medications (5) Chronic kidney disease Status: Chronic Response to Treatment: Stable Problem Text: Creatine 1.63, baseline 1.5-1.6 Will continue to monitor (6) COPD (chronic obstructive pulmonary disease) Status: Chronic Response to Treatment: Stable Problem Text: Has moderate obstructive lung disease will continue with nebulizations. O2 titrate 88-92% DuoNebs PRN (7) DVT prophylaxis Status: Acute Response to Treatment: Stable Problem Text: SCD TEDS (8) Chronic respiratory failure with hypoxia Status: Chronic (9) Mitral valve disorder Status: Chronic Problem Text: has moderate mitral regurgitation and mild stenosis. (10) History of carotid endarterectomy Status: Chronic Plan/VTE VTE Prophylaxis Ordered?: Yes VS, I&O, 24H, Fishbone Vital Signs/I&O Vital Signs Date Time Temp Pulse Resp B/P (MAP) Pulse Ox O2 Delivery O2 Flow Rate FiO2 10/22/16 08:14 78 103/52 10/22/16 08:00 97.9 18 96 Nasal Cannula 2.0 I&O- Last 24 Hours up to 6 AM 10/22/16 06:00 Intake Total 240 ml Output Total 350 ml Balance -110 ml Laboratory Data 24H LABS Laboratory Tests 2 10/21/16 21:23: White Blood Count 9.3, Red Blood Count 3.77L, Hemoglobin 11.0L, Hematocrit 34.1L , Mean Corpuscular Volume 90.6, Mean Corpuscular Hemoglobin 29.1, Mean Corpuscular Hemoglobin Concent 32.2, Red Cell Distribution Width 14.6H, Platelet Count 257, Neutrophils (%) (Auto) 88.4H, Lymphocytes (%) (Auto) 5.1L, Monocytes (%) (Auto) 4.5, Eosinophils (%) (Auto) 0.5, Basophils (%) (Auto) 0.3, Neutrophils # (Auto) 8.2H, Lymphocytes # (Auto) 0.6L, Monocytes # (Auto) 0.4, Eosinophils # (Auto) 0.0, Basophils # (Auto) 0.0, Large Unclassified Cells % 1.2 , Large Unclassified Cells # 0.1, Anion Gap 6L, Glomerular Filtration Rate 32.5L , Blood Urea Nitrogen 52H, Creatinine 1.63H, Sodium Level 138, Potassium Level 3.4L, Chloride Level 96L, Carbon Dioxide Level 36H, Calcium Level 8.4L, Total Creatine Kinase 30, Creatine Kinase MB 1.0, Creatine Kinase MB Relative Index 3.33, Troponin I 0.08, B-Type Natriuretic Peptide 4760H 10/22/16 05:05: Total Creatine Kinase 38, Creatine Kinase MB 1.4, Creatine Kinase MB Relative Index 3.68, Troponin I 0.18#H, B-Type Natriuretic Peptide > 5000H, Thyroid Stimulating Hormone (TSH) 1.530 CBC/BMP Laboratory Tests 10/21/16 21:23 Red Blood Count 3.77 L, Mean Corpuscular Volume 90.6, Mean Corpuscular Hemoglobin 29.1, Mean Corpuscular Hemoglobin Concent 32.2, Red Cell Distribution Width 14.6 H, Neutrophils (%) (Auto) 88.4 H, Lymphocytes (%) (Auto ) 5.1 L, Monocytes (%) (Auto) 4.5, Eosinophils (%) (Auto) 0.5, Basophils (%) ( Auto) 0.3, Neutrophils # (Auto) 8.2 H, Lymphocytes # (Auto) 0.6 L, Monocytes # ( Auto) 0.4, Eosinophils # (Auto) 0.0, Basophils # (Auto) 0.0, Calcium Level 8.4 L , Total Creatine Kinase 30 IRVING REYNOSO MD Oct 22, 2016 10:49
[2016-10-22] MEDS: FORMOTEROL FUMARATE 20 MCG/2 ML INHALATION SOLUTION (PERFOROMIST) INH SCH ×2 (11:25→20:00)
[2016-10-22 12:00] VITALS: BP 107/56
--- NOTE | 2016-10-22 12:49 | ECGEPIP ---
Stationary ECG Study [facility] Test Date: 2016-10-22 Pat Name: KAITLYN JOAQUIN Department: Room: [place] [address] Gender: F Diet Therapist: : [id number] Requested By: IRVING REYNOSO Order Number: [id number] Reading MD: Ashanti Layton Measurements Intervals [place] Rate: 83 P: AK: 0 QRS: 74 QRSD: 110 T: 62 QT: 383 QTc: 450 Interpretive Statements NSR PACS PVC LAE VOLTAGE CRITERIA FOR LVH INF AND LAT ST & T-WAVE ABNORMALITY IMPROVEMENT IN LAT CHANGES CONFUCIANIST OF SINUS RHYTHM ECTOPICS NEW C/W 10/21/16 Electronically Signed On 10-22-2016 12:48:58 EDT by Ashanti Layton
[2016-10-22 16:00] VITALS: BP 110/63
[2016-10-22 19:57] VITALS: BP 107/59
[2016-10-22 23:30] VITALS: BP 115/65
[2016-10-23 05:16] LABS: BASO % 0.3 % (0.0-1.0); EOS # 0.2 K/mm3 (0.0-0.50); EOS % 2.3 % (0.0-3.0); LARGE UNSTAINED CELL # 0.1 K/mm3 (0.0-0.4); LARGE UNSTAINED CELL % 1.8 % (0.0-4.0); LYMPH # 0.6 K/mm3 (1.5-4.5); LYMPH % 8.2 % (24.0-44.0); MEAN CORPUSCULAR HEMOGLOBIN 29.7 pg (27.0-33.0); MEAN CORPUSCULAR VOLUME 92.6 fl (80.0-96.0); MONO # 0.4 K/mm3 (0.0-0.8); MONO % 6.5 % (0.0-5.0); NEUTROPHILS # 5.2 K/mm3 (1.8-7.7); NEUTROPHILS % 80.9 % (36.0-66.0); PLATELET COUNT, AUTOMATED 245 k/mm3 (150-450); RED CELL DISTRIBUTION WIDTH 14.5 % (11.5-14.5); WHITE BLOOD COUNT 6.4 K/mm3 (4.0-10.0)
[2016-10-23] MEDS: SLF 3 ML SYR IV SCH ×3 (05:16→20:30)
[2016-10-23 05:46] LABS: CALCIUM LEVEL 8.7 MG/DL (8.8-10.2); CREATININE FOR GFR 1.74 MG/DL (0.55-1.02); DIGOXIN LEVEL 0.9 NG/ML (0.5-2.0); GLOMERULAR FILTRATION RATE 30.1 (>39); MAGNESIUM LEVEL 2.1 MG/DL (1.8-2.4); POTASSIUM SERUM 3.6 MEQ/L (3.5-5.1)
[2016-10-23 05:51] VITALS: BP 120/63
[2016-10-23] MEDS: BUDESONIDE 0.5 MG/2 ML INHALATION SUSPENSION INH SCH ×2 (07:39→20:11)
[2016-10-23] MEDS: FORMOTEROL FUMARATE 20 MCG/2 ML INHALATION SOLUTION (PERFOROMIST) INH SCH ×2 (07:39→20:11)
[2016-10-23 07:55] VITALS: BP 120/70
[2016-10-23] MEDS: APIXABAN 2.5 MG TAB (ELIQUIS) PO SCH ×2 (08:29→20:29)
[2016-10-23] MEDS: FUROSEMIDE 100 MG/10 ML VIAL (J1940) IV SCH ×2 (08:29→17:21)
[2016-10-23] MEDS: DIGOXIN 0.125 MG TAB PO SCH (08:30)
[2016-10-23 08:31] VITALS: BP 120/70
[2016-10-23] MEDS: metOLazone 5 MG TAB PO SCH (08:31)
[2016-10-23] MEDS: POTASSIUM CHLORIDE 10 MEQ SR TABLET PO SCH ×2 (08:31→20:29)
[2016-10-23] MEDS: ASPIRIN 81 MG ENTERIC TAB PO SCH (08:31)
[2016-10-23] MEDS: METOPROLOL TART 25 MG TABLET PO SCH (08:31)
--- NOTE | 2016-10-23 08:51 | IPNPDOC ---
Subjective Date Seen The patient was seen on 10/23/16. Subjective Chief Complaint/HPI The patient is a 76-year-old female admitted with a reason for visit of Atrial Fibrillation. Events since last encounter still short of breath but a little better, still with leg swelling not much change , no fever or chills, no ches pain , no abdominal pain , nausea or vomiting. Objective Physical Examination General Exam: Positive: Alert, Cooperative, No Acute Distress Eye Exam: Positive: Conjunctiva & lids normal, EOMI, Negative: Sclera icteric ENT Exam: Positive: Atraumatic Neck Exam: Positive: Supple Chest Exam: Positive: Rales (left> right), Rhonchi, Diminished (all lung laswon , generalized), Negative: Clear to auscultation, Normal air movement, Wheezing Heart Exam: Positive: Tachycardic, Irregular Rhythm, Normal S1, Normal S2, Murmurs (systolic ) Telemetry: Positive: Sinus, PVCs, PACs Abdomen Exam: Positive: Normal bowel sounds, Soft, Negative: Tenderness, Hepatospenomegaly, Mass Extremity Exam: Positive: Edema (+2 BL LE), Negative: Clubbing, Cyanosis Psych Exam: Positive: Mental status NL Assessment /Plan Problems (1) CHF (congestive heart failure) Status: Acute Response to Treatment: Stable Problem Text: acute exacerbation of chronic congestive heart failure mostly right heart failure due to pulmonary hypertension , copd and corpulmonale. will continue with iv lasix and metolazone. Last ECHoO shows EF 55-60% August 2016, impression: 1. Normal global left ventricular systolic and diastolic function. 2. Aortic valve sclerosis without stenosis or aortic regurgitation. 3. Mitral annulus calcification with mild to moderate mitral regurgitation and mild calcific mitral stenosis. 4. Mild tricuspid regurgitation with mild pulmonary hypertension. 5. Trace to small pericardial effusion noted, no evidence of cardiac tamponade. (2) Atrial fibrillation Status: Acute Response to Treatment: Stable Problem Text: Afib with rvr versus multifocal atrial tachycardia New EKG shows sinus rhythm with multiple PACS and PVCs chronic as seen in prior ekg in september. will rate control with digoxin and metoprolol will start on eliquis. (3) Pleural effusion due to CHF (congestive heart failure) Status: Acute Response to Treatment: Stable Problem Text: Expect pleural effusion to improve with diuresis Will continue lasix and zaroxolyn (4) Hypertension Status: Chronic Response to Treatment: Stable Problem Text: stable continue home medications (5) Chronic kidney disease Status: Chronic Response to Treatment: Stable Problem Text: Creatine 1.63, baseline 1.5-1.6 Will continue to monitor (6) COPD (chronic obstructive pulmonary disease) Status: Chronic Response to Treatment: Stable Problem Text: Has moderate obstructive lung disease will continue with nebulizations. O2 titrate 88-92% DuoNebs PRN (7) DVT prophylaxis Status: Acute Response to Treatment: Stable Problem Text: SCD TEDS (8) Chronic respiratory failure with hypoxia Status: Chronic (9) Mitral valve disorder Status: Chronic Response to Treatment: Stable Problem Text: has moderate mitral regurgitation and mild stenosis. (10) History of carotid endarterectomy Status: Chronic Response to Treatment: Stable Plan/VTE VTE Prophylaxis Ordered?: Yes VS, I&O, 24H, Fishbone Vital Signs/I&O Vital Signs Date Time Temp Pulse Resp B/P (MAP) Pulse Ox O2 Delivery O2 Flow Rate FiO2 10/23/16 08:31 82 120/70 10/23/16 07:55 97.6 19 96 Nasal Cannula 2.0 I&O- Last 24 Hours up to 6 AM 10/23/16 06:00 Intake Total 1080 ml Output Total 1150 ml Balance -70 ml Laboratory Data 24H LABS Laboratory Tests 2 10/22/16 10:56: Total Creatine Kinase 36, Creatine Kinase MB 1.8, Creatine Kinase MB Relative Index 5.00H, Troponin I 0.16H 10/22/16 17:02: Total Creatine Kinase 27, Creatine Kinase MB 1.7, Creatine Kinase MB Relative Index 6.29H, Troponin I 0.16H 10/22/16 23:02: Total Creatine Kinase 25L, Creatine Kinase MB 1.0, Creatine Kinase MB Relative Index 4.00, Troponin I 0.16H 10/23/16 04:58: White Blood Count 6.4, Red Blood Count 3.65L, Hemoglobin 10.8L, Hematocrit 33.8L , Mean Corpuscular Volume 92.6, Mean Corpuscular Hemoglobin 29.7, Mean Corpuscular Hemoglobin Concent 32.0, Red Cell Distribution Width 14.5, Platelet Count 245, Neutrophils (%) (Auto) 80.9H, Lymphocytes (%) (Auto) 8.2L, Monocytes (%) (Auto) 6.5H, Eosinophils (%) (Auto) 2.3, Basophils (%) (Auto) 0.3, Neutrophils # (Auto) 5.2, Lymphocytes # (Auto) 0.6L, Monocytes # (Auto) 0.4, Eosinophils # (Auto) 0.2, Basophils # (Auto) 0.0, Large Unclassified Cells % 1.8 , Large Unclassified Cells # 0.1, Anion Gap 5L, Glomerular Filtration Rate 30.1L , Blood Urea Nitrogen 51H, Creatinine 1.74H, Sodium Level 140, Potassium Level 3.6, Chloride Level 97L, Carbon Dioxide Level 38H, Calcium Level 8.7L, Magnesium Level 2.1, B-Type Natriuretic Peptide > 5000H, Digoxin Level 0.9 CBC/BMP Laboratory Tests 10/23/16 04:58 Red Blood Count 3.65 L, Mean Corpuscular Volume 92.6, Mean Corpuscular Hemoglobin 29.7, Mean Corpuscular Hemoglobin Concent 32.0, Red Cell Distribution Width 14.5, Neutrophils (%) (Auto) 80.9 H, Lymphocytes (%) (Auto) 8.2 L, Monocytes (%) (Auto) 6.5 H, Eosinophils (%) (Auto) 2.3, Basophils (%) ( Auto) 0.3, Neutrophils # (Auto) 5.2, Lymphocytes # (Auto) 0.6 L, Monocytes # ( Auto) 0.4, Eosinophils # (Auto) 0.2, Basophils # (Auto) 0.0, Calcium Level 8.7 L IRVING REYNOSO MD Oct 23, 2016 08:51
[2016-10-23 12:00] VITALS: BP 131/65
[2016-10-23 16:00] VITALS: BP 125/68
[2016-10-23 20:00] VITALS: BP 134/65
[2016-10-24] VITALS: BP 126/65
[2016-10-24 04:00] VITALS: BP 102/65
[2016-10-24 05:42] LABS: BASO % 0.3 % (0.0-1.0); EOS # 0.1 K/mm3 (0.0-0.50); EOS % 1.8 % (0.0-3.0); LARGE UNSTAINED CELL # 0.2 K/mm3 (0.0-0.4); LARGE UNSTAINED CELL % 2.1 % (0.0-4.0); LYMPH # 0.7 K/mm3 (1.5-4.5); LYMPH % 7.3 % (24.0-44.0); MEAN CORPUSCULAR HEMOGLOBIN 29.6 pg (27.0-33.0); MEAN CORPUSCULAR VOLUME 92.6 fl (80.0-96.0); MONO # 0.4 K/mm3 (0.0-0.8); MONO % 5.7 % (0.0-5.0); NEUTROPHILS # 5.9 K/mm3 (1.8-7.7); NEUTROPHILS % 82.9 % (36.0-66.0); PLATELET COUNT, AUTOMATED 231 k/mm3 (150-450); RED CELL DISTRIBUTION WIDTH 14.7 % (11.5-14.5); WHITE BLOOD COUNT 7.1 K/mm3 (4.0-10.0)
[2016-10-24 05:52] LABS: CALCIUM LEVEL 8.7 MG/DL (8.8-10.2); CREATININE FOR GFR 1.45 MG/DL (0.55-1.02); GLOMERULAR FILTRATION RATE 37.2 (>39); MAGNESIUM LEVEL 1.9 MG/DL (1.8-2.4); POTASSIUM SERUM 3.5 MEQ/L (3.5-5.1)
[2016-10-24] MEDS: SLF 3 ML SYR IV SCH ×3 (05:52→21:26)
[2016-10-24] MEDS: FORMOTEROL FUMARATE 20 MCG/2 ML INHALATION SOLUTION (PERFOROMIST) INH SCH ×2 (07:30→20:49)
[2016-10-24] MEDS: BUDESONIDE 0.5 MG/2 ML INHALATION SUSPENSION INH SCH ×2 (07:30→20:49)
[2016-10-24 08:00] VITALS: BP 135/69
[2016-10-24] MEDS: APIXABAN 2.5 MG TAB (ELIQUIS) PO SCH ×2 (08:30→21:26)
[2016-10-24] MEDS: metOLazone 5 MG TAB PO SCH (08:30)
[2016-10-24] MEDS: ASPIRIN 81 MG ENTERIC TAB PO SCH (08:30)
[2016-10-24] MEDS: FUROSEMIDE 100 MG/10 ML VIAL (J1940) IV SCH ×2 (08:30→16:17)
[2016-10-24] MEDS: DIGOXIN 0.125 MG TAB PO SCH (08:30)
[2016-10-24] MEDS: POTASSIUM CHLORIDE 10 MEQ SR TABLET PO SCH ×2 (08:30→21:26)
--- NOTE | 2016-10-24 11:54 | IPNPDOC ---
Subjective Date Seen The patient was seen on 10/24/16. Subjective Chief Complaint/HPI The patient is a 76-year-old female admitted with a reason for visit of Atrial Fibrillation. Events since last encounter feeling better, sob improving. leg swelling improving. Objective Physical Examination General Exam: Positive: Alert, Cooperative, No Acute Distress Eye Exam: Positive: Conjunctiva & lids normal, EOMI, Negative: Sclera icteric ENT Exam: Positive: Atraumatic Neck Exam: Positive: Supple Chest Exam: Positive: Rales (left> right), Rhonchi, Diminished (all lung lawson , generalized), Negative: Clear to auscultation, Normal air movement, Wheezing Heart Exam: Positive: Tachycardic, Irregular Rhythm, Normal S1, Normal S2, Murmurs (systolic ) Telemetry: Positive: Sinus, PVCs, PACs Abdomen Exam: Positive: Normal bowel sounds, Soft, Negative: Tenderness, Hepatospenomegaly, Mass Extremity Exam: Positive: Edema (+2 BL LE), Negative: Clubbing, Cyanosis Psych Exam: Positive: Mental status NL Assessment /Plan Problems (1) CHF (congestive heart failure) Status: Acute Response to Treatment: Stable Problem Text: acute exacerbation of chronic congestive heart failure mostly right heart failure due to pulmonary hypertension , copd and corpulmonale. will continue with iv lasix and metolazone. Last ECHoO shows EF 55-60% August 2016, impression: 1. Normal global left ventricular systolic and diastolic function. 2. Aortic valve sclerosis without stenosis or aortic regurgitation. 3. Mitral annulus calcification with mild to moderate mitral regurgitation and mild calcific mitral stenosis. 4. Mild tricuspid regurgitation with mild pulmonary hypertension. 5. Trace to small pericardial effusion noted, no evidence of cardiac tamponade. (2) Atrial fibrillation Status: Acute Response to Treatment: Stable Problem Text: Afib with rvr versus multifocal atrial tachycardia New EKG shows sinus rhythm with multiple PACS and PVCs chronic as seen in prior ekg in september. will rate control with digoxin and metoprolol will start on eliquis. (3) Pleural effusion due to CHF (congestive heart failure) Status: Acute Response to Treatment: Stable Problem Text: Expect pleural effusion to improve with diuresis Will continue lasix and zaroxolyn (4) Hypertension Status: Chronic Response to Treatment: Stable Problem Text: stable continue home medications (5) Chronic kidney disease Status: Chronic Response to Treatment: Stable Problem Text: Creatine at baseline. Will continue to monitor (6) COPD (chronic obstructive pulmonary disease) Status: Chronic Response to Treatment: Stable Problem Text: Has moderate obstructive lung disease will continue with nebulizations. O2 titrate 88-92% DuoNebs PRN (7) DVT prophylaxis Status: Acute Response to Treatment: Stable Problem Text: SCD TEDS (8) Chronic respiratory failure with hypoxia Status: Chronic (9) Mitral valve disorder Status: Chronic Response to Treatment: Stable Problem Text: has moderate mitral regurgitation and mild stenosis. (10) History of carotid endarterectomy Status: Chronic Response to Treatment: Stable Plan/VTE VTE Prophylaxis Ordered?: Yes VS, I&O, 24H, Fishbone Vital Signs/I&O Vital Signs Date Time Temp Pulse Resp B/P (MAP) Pulse Ox O2 Delivery O2 Flow Rate FiO2 10/24/16 08:30 82 10/24/16 08:00 97.5 18 135/69 (91) 100 Nasal Cannula 2.0 I&O- Last 24 Hours up to 6 AM 10/24/16 06:00 Intake Total 415 ml Output Total 1675 ml Balance -1260 ml Laboratory Data 24H LABS Laboratory Tests 2 10/24/16 05:17: White Blood Count 7.1, Red Blood Count 3.61L, Hemoglobin 10.7L, Hematocrit 33.5L , Mean Corpuscular Volume 92.6, Mean Corpuscular Hemoglobin 29.6, Mean Corpuscular Hemoglobin Concent 32.0, Red Cell Distribution Width 14.7H, Platelet Count 231, Neutrophils (%) (Auto) 82.9H, Lymphocytes (%) (Auto) 7.3L, Monocytes (%) (Auto) 5.7H, Eosinophils (%) (Auto) 1.8, Basophils (%) (Auto) 0.3 , Neutrophils # (Auto) 5.9, Lymphocytes # (Auto) 0.7L, Monocytes # (Auto) 0.4, Eosinophils # (Auto) 0.1, Basophils # (Auto) 0.0, Large Unclassified Cells % 2.1 , Large Unclassified Cells # 0.2, Anion Gap 6L, Glomerular Filtration Rate 37.2L , Blood Urea Nitrogen 47H, Creatinine 1.45H, Sodium Level 140, Potassium Level 3.5, Chloride Level 96L, Carbon Dioxide Level 38H, Calcium Level 8.7L, Magnesium Level 1.9, B-Type Natriuretic Peptide > 5000H CBC/BMP Laboratory Tests 10/24/16 05:17 Red Blood Count 3.61 L, Mean Corpuscular Volume 92.6, Mean Corpuscular Hemoglobin 29.6, Mean Corpuscular Hemoglobin Concent 32.0, Red Cell Distribution Width 14.7 H, Neutrophils (%) (Auto) 82.9 H, Lymphocytes (%) (Auto ) 7.3 L, Monocytes (%) (Auto) 5.7 H, Eosinophils (%) (Auto) 1.8, Basophils (%) ( Auto) 0.3, Neutrophils # (Auto) 5.9, Lymphocytes # (Auto) 0.7 L, Monocytes # ( Auto) 0.4, Eosinophils # (Auto) 0.1, Basophils # (Auto) 0.0, Calcium Level 8.7 L Microbiology Microbiology 10/23/16 Stool Occult Blood (LYNNETTE) - Final, Complete IRVING REYNOSO MD Oct 24, 2016 11:53
[2016-10-24 12:00] VITALS: BP 128/70
[2016-10-24 16:00] VITALS: BP 116/53
[2016-10-24] MEDS ORDERED: ACETAMINOPHEN TAB 650MG DOSE (2X325MG) PO ONE (16:15)
[2016-10-24 20:00] VITALS: BP 107/52
[2016-10-25] VITALS (7 sets, daily range): BP systolic 104–134; BP diastolic 57–63
[2016-10-25] MEDS: SLF 3 ML SYR IV SCH ×3 (04:25→20:21)
[2016-10-25 05:00] LABS: BASO % 0.5 % (0.0-1.0); EOS # 0.1 K/mm3 (0.0-0.50); EOS % 2.4 % (0.0-3.0); LARGE UNSTAINED CELL # 0.2 K/mm3 (0.0-0.4); LARGE UNSTAINED CELL % 2.5 % (0.0-4.0); LYMPH # 0.7 K/mm3 (1.5-4.5); LYMPH % 9.4 % (24.0-44.0); MEAN CORPUSCULAR HEMOGLOBIN 29.4 pg (27.0-33.0); MEAN CORPUSCULAR HGB CONC 31.5 g/dl (32.0-36.5); MEAN CORPUSCULAR VOLUME 93.2 fl (80.0-96.0); MONO # 0.5 K/mm3 (0.0-0.8); MONO % 7.5 % (0.0-5.0); NEUTROPHILS # 4.7 K/mm3 (1.8-7.7); NEUTROPHILS % 77.6 % (36.0-66.0); PLATELET COUNT, AUTOMATED 245 k/mm3 (150-450); RED CELL DISTRIBUTION WIDTH 14.6 % (11.5-14.5)
[2016-10-25 05:18] LABS: CALCIUM LEVEL 8.7 MG/DL (8.8-10.2); CREATININE FOR GFR 1.45 MG/DL (0.55-1.02); GLOMERULAR FILTRATION RATE 37.2 (>39); MAGNESIUM LEVEL 2.1 MG/DL (1.8-2.4); POTASSIUM SERUM 3.7 MEQ/L (3.5-5.1)
[2016-10-25] MEDS: FORMOTEROL FUMARATE 20 MCG/2 ML INHALATION SOLUTION (PERFOROMIST) INH SCH ×2 (07:46→21:15)
[2016-10-25] MEDS: BUDESONIDE 0.5 MG/2 ML INHALATION SUSPENSION INH SCH ×2 (07:46→21:15)
[2016-10-25] MEDS: ASPIRIN 81 MG ENTERIC TAB PO SCH (09:45)
[2016-10-25] MEDS: metOLazone 5 MG TAB PO SCH (09:45)
[2016-10-25] MEDS: POTASSIUM CHLORIDE 10 MEQ SR TABLET PO SCH ×2 (09:46→20:21)
[2016-10-25] MEDS: APIXABAN 2.5 MG TAB (ELIQUIS) PO SCH ×2 (09:46→20:20)
[2016-10-25] MEDS: FUROSEMIDE 100 MG/10 ML VIAL (J1940) IV SCH ×2 (09:47→16:41)
[2016-10-25] MEDS: DIGOXIN 0.125 MG TAB PO SCH (09:47)
--- NOTE | 2016-10-25 11:05 | IPNPDOC ---
Subjective Date Seen The patient was seen on 10/25/16. Subjective Chief Complaint/HPI The patient is a 76-year-old female admitted with a reason for visit of Atrial Fibrillation. 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 , no fever or chills, no chest pain .SOb almost at baseline. Objective Physical Examination General Exam: Positive: Alert, Cooperative, No Acute Distress Eye Exam: Positive: Conjunctiva & lids normal, EOMI, Negative: Sclera icteric ENT Exam: Positive: Atraumatic Neck Exam: Positive: Supple Chest Exam: Positive: Rales (left> right), Rhonchi, Diminished (all lung lawson , generalized), Negative: Clear to auscultation, Normal air movement, Wheezing Heart Exam: Positive: Tachycardic, Irregular Rhythm, Normal S1, Normal S2, Murmurs (systolic ) Telemetry: Positive: Sinus, PVCs, PACs Abdomen Exam: Positive: Normal bowel sounds, Soft, Negative: Tenderness, Hepatospenomegaly, Mass Extremity Exam: Positive: Edema (+2 BL LE), Negative: Clubbing, Cyanosis Psych Exam: Positive: Mental status NL Assessment /Plan Problems (1) CHF (congestive heart failure) Status: Acute Response to Treatment: Stable Problem Text: acute exacerbation of chronic congestive heart failure mostly right heart failure due to pulmonary hypertension , copd and corpulmonale. will continue with iv lasix and metolazone. Last ECHoO shows EF 55-60% August 2016, impression: 1. Normal global left ventricular systolic and diastolic function. 2. Aortic valve sclerosis without stenosis or aortic regurgitation. 3. Mitral annulus calcification with mild to moderate mitral regurgitation and mild calcific mitral stenosis. 4. Mild tricuspid regurgitation with mild pulmonary hypertension. 5. Trace to small pericardial effusion noted, no evidence of cardiac tamponade. (2) Atrial fibrillation Status: Acute Response to Treatment: Stable Problem Text: Afib with rvr versus multifocal atrial tachycardia New EKG shows sinus rhythm with multiple PACS and PVCs chronic as seen in prior ekg in september. will rate control with digoxin and metoprolol will start on eliquis. (3) Pleural effusion due to CHF (congestive heart failure) Status: Acute Response to Treatment: Stable Problem Text: Expect pleural effusion to improve with diuresis Will continue lasix and zaroxolyn (4) Hypertension Status: Chronic Response to Treatment: Stable Problem Text: stable continue home medications (5) Chronic kidney disease Status: Chronic Response to Treatment: Stable Problem Text: Creatine at baseline. Will continue to monitor (6) COPD (chronic obstructive pulmonary disease) Status: Chronic Response to Treatment: Stable Problem Text: Has moderate obstructive lung disease will continue with nebulizations. O2 titrate 88-92% DuoNebs PRN (7) DVT prophylaxis Status: Acute Response to Treatment: Stable Problem Text: SCD TEDS (8) Chronic respiratory failure with hypoxia Status: Chronic (9) Mitral valve disorder Status: Chronic Response to Treatment: Stable Problem Text: has moderate mitral regurgitation and mild stenosis. (10) History of carotid endarterectomy Status: Chronic Response to Treatment: Stable Plan/VTE VTE Prophylaxis Ordered?: Yes VS, I&O, 24H, Fishbone Vital Signs/I&O Vital Signs Date Time Temp Pulse Resp B/P (MAP) Pulse Ox O2 Delivery O2 Flow Rate FiO2 10/25/16 09:47 88 10/25/16 08:06 Nasal Cannula 2.0 10/25/16 08:00 97.7 19 116/57 (76) 97 I&O- Last 24 Hours up to 6 AM 10/25/16 06:00 Intake Total 690 ml Output Total 1600 ml Balance -910 ml Laboratory Data 24H LABS Laboratory Tests 2 10/25/16 04:49: White Blood Count 6.0, Red Blood Count 3.70L, Hemoglobin 10.9L, Hematocrit 34.5L , Mean Corpuscular Volume 93.2, Mean Corpuscular Hemoglobin 29.4, Mean Corpuscular Hemoglobin Concent 31.5L, Red Cell Distribution Width 14.6H, Platelet Count 245, Neutrophils (%) (Auto) 77.6H, Lymphocytes (%) (Auto) 9.4L, Monocytes (%) (Auto) 7.5H, Eosinophils (%) (Auto) 2.4, Basophils (%) (Auto) 0.5 , Neutrophils # (Auto) 4.7, Lymphocytes # (Auto) 0.7L, Monocytes # (Auto) 0.5, Eosinophils # (Auto) 0.1, Basophils # (Auto) 0.0, Large Unclassified Cells % 2.5 , Large Unclassified Cells # 0.2, Anion Gap 4L, Glomerular Filtration Rate 37.2L , Blood Urea Nitrogen 53H, Creatinine 1.45H, Sodium Level 138, Potassium Level 3.7, Chloride Level 96L, Carbon Dioxide Level 38H, Calcium Level 8.7L, Magnesium Level 2.1, B-Type Natriuretic Peptide > 5000H CBC/BMP Laboratory Tests 10/25/16 04:49 Red Blood Count 3.70 L, Mean Corpuscular Volume 93.2, Mean Corpuscular Hemoglobin 29.4, Mean Corpuscular Hemoglobin Concent 31.5 L, Red Cell Distribution Width 14.6 H, Neutrophils (%) (Auto) 77.6 H, Lymphocytes (%) (Auto ) 9.4 L, Monocytes (%) (Auto) 7.5 H, Eosinophils (%) (Auto) 2.4, Basophils (%) ( Auto) 0.5, Neutrophils # (Auto) 4.7, Lymphocytes # (Auto) 0.7 L, Monocytes # ( Auto) 0.5, Eosinophils # (Auto) 0.1, Basophils # (Auto) 0.0, Calcium Level 8.7 L Microbiology Microbiology 10/23/16 Stool Occult Blood (LYNNETTE) - Final, Complete IRVING REYNOSO MD Oct 25, 2016 11:05
[2016-10-26] MEDS: SLF 3 ML SYR IV SCH ×3 (04:41→20:46)
[2016-10-26 04:45] VITALS: BP 126/69
[2016-10-26 06:26] LABS: BASO % 0.3 % (0.0-1.0); EOS # 0.1 K/mm3 (0.0-0.50); EOS % 1.5 % (0.0-3.0); LARGE UNSTAINED CELL # 0.1 K/mm3 (0.0-0.4); LARGE UNSTAINED CELL % 2.1 % (0.0-4.0); LYMPH # 0.5 K/mm3 (1.5-4.5); LYMPH % 6.7 % (24.0-44.0); MEAN CORPUSCULAR HEMOGLOBIN 29.7 pg (27.0-33.0); MEAN CORPUSCULAR HGB CONC 31.9 g/dl (32.0-36.5); MEAN CORPUSCULAR VOLUME 93.1 fl (80.0-96.0); MONO # 0.4 K/mm3 (0.0-0.8); MONO % 5.6 % (0.0-5.0); NEUTROPHILS # 5.6 K/mm3 (1.8-7.7); NEUTROPHILS % 83.8 % (36.0-66.0); PLATELET COUNT, AUTOMATED 255 k/mm3 (150-450); RED CELL DISTRIBUTION WIDTH 14.4 % (11.5-14.5); WHITE BLOOD COUNT 6.7 K/mm3 (4.0-10.0)
[2016-10-26] MEDS: FORMOTEROL FUMARATE 20 MCG/2 ML INHALATION SOLUTION (PERFOROMIST) INH SCH ×2 (07:12→20:30)
[2016-10-26] MEDS: BUDESONIDE 0.5 MG/2 ML INHALATION SUSPENSION INH SCH ×2 (07:12→20:30)
[2016-10-26 07:20] LABS: CREATININE FOR GFR 1.45 MG/DL (0.55-1.02); DIGOXIN LEVEL 1.1 NG/ML (0.5-2.0); GLOMERULAR FILTRATION RATE 37.2 (>39)
[2016-10-26 08:00] VITALS: BP 116/57
--- NOTE | 2016-10-26 09:38 | REP ---
CHEST, TWO VIEWS: HISTORY: Pleural effusion. COMPARISON: 10/21/2016. Increased density is present in the lower lobes consistent with bibasilar atelectasis or infiltrates unchanged compared to the previous study. Bilateral pleural effusions are present, larger on the right than on the left unchanged compared to the previous study. The cardiac silhouette is enlarged. The pulmonary vasculature is prominent. The bony structure is intact. IMPRESSION: 1. Bibasilar atelectasis or infiltrates unchanged compared to the previous study. 2. Bilateral pleural effusions unchanged compared to the previous study. 3. Cardiomegaly. Signed by Angelo Jackson MD 10/26/2016 09:42 A
[2016-10-26] MEDS: metOLazone 5 MG TAB PO SCH (09:46)
[2016-10-26] MEDS: DIGOXIN 0.125 MG TAB PO SCH (09:47)
[2016-10-26] MEDS: APIXABAN 2.5 MG TAB (ELIQUIS) PO SCH ×2 (09:47→20:45)
[2016-10-26] MEDS: POTASSIUM CHLORIDE 10 MEQ SR TABLET PO SCH ×2 (09:48→20:45)
[2016-10-26] MEDS: FUROSEMIDE 100 MG/10 ML VIAL (J1940) IV SCH ×3 (09:48→20:46)
[2016-10-26] MEDS: SLF 3 ML SYR IV PRN ×2 (09:49→16:17)
[2016-10-26] MEDS: ASPIRIN 81 MG ENTERIC TAB PO SCH (09:51)
[2016-10-26 12:00] VITALS: BP 129/60
--- NOTE | 2016-10-26 12:12 | IPNPDOC ---
Subjective Date Seen The patient was seen on 10/26/16. Subjective Chief Complaint/HPI The patient is a 76-year-old female admitted with a reason for visit of Atrial Fibrillation. Events since last encounter feling tired today , SOB at baseline , leg swelling slowly improving. no fever or chills, no chest pain or cough . Objective Physical Examination General Exam: Positive: Alert, Cooperative, No Acute Distress Eye Exam: Positive: Conjunctiva & lids normal, EOMI, Negative: Sclera icteric ENT Exam: Positive: Atraumatic Neck Exam: Positive: Supple Chest Exam: Positive: Rales (left> right), Rhonchi, Diminished (all lung lawson , generalized), Negative: Clear to auscultation, Normal air movement, Wheezing Heart Exam: Positive: Tachycardic, Irregular Rhythm, Normal S1, Normal S2, Murmurs (systolic ) Telemetry: Positive: Sinus, PVCs, PACs Abdomen Exam: Positive: Normal bowel sounds, Soft, Negative: Tenderness, Hepatospenomegaly, Mass Extremity Exam: Positive: Edema (+2 BL LE), Negative: Clubbing, Cyanosis Psych Exam: Positive: Mental status NL Assessment /Plan Problems (1) CHF (congestive heart failure) Status: Acute Response to Treatment: Stable Problem Text: acute exacerbation of chronic congestive heart failure mostly right heart failure due to pulmonary hypertension , copd and corpulmonale. will continue with iv lasix and metolazone. Last ECHoO shows EF 55-60% August 2016, impression: 1. Normal global left ventricular systolic and diastolic function. 2. Aortic valve sclerosis without stenosis or aortic regurgitation. 3. Mitral annulus calcification with mild to moderate mitral regurgitation and mild calcific mitral stenosis. 4. Mild tricuspid regurgitation with mild pulmonary hypertension. 5. Trace to small pericardial effusion noted, no evidence of cardiac tamponade. (2) Atrial fibrillation Status: Acute Response to Treatment: Stable Problem Text: Afib with rvr versus multifocal atrial tachycardia New EKG shows sinus rhythm with multiple PACS and PVCs chronic as seen in prior ekg in september. will rate control with digoxin and metoprolol will start on eliquis. (3) Pleural effusion due to CHF (congestive heart failure) Status: Acute Response to Treatment: Stable Problem Text: Expect pleural effusion to improve with diuresis Will continue lasix and zaroxolyn (4) Hypertension Status: Chronic Response to Treatment: Stable Problem Text: stable continue home medications (5) Chronic kidney disease Status: Chronic Response to Treatment: Stable Problem Text: Creatine at baseline. Will continue to monitor (6) COPD (chronic obstructive pulmonary disease) Status: Chronic Response to Treatment: Stable Problem Text: Has moderate obstructive lung disease will continue with nebulizations. O2 titrate 88-92% DuoNebs PRN (7) DVT prophylaxis Status: Acute Response to Treatment: Stable Problem Text: SCD TEDS (8) Chronic respiratory failure with hypoxia Status: Chronic (9) Mitral valve disorder Status: Chronic Response to Treatment: Stable Problem Text: has moderate mitral regurgitation and mild stenosis. (10) History of carotid endarterectomy Status: Chronic Response to Treatment: Stable Plan/VTE VTE Prophylaxis Ordered?: Yes VS, I&O, 24H, Fishbone Vital Signs/I&O Vital Signs Date Time Temp Pulse Resp B/P (MAP) Pulse Ox O2 Delivery O2 Flow Rate FiO2 10/26/16 12:00 99.0 72 20 129/60 (83) 97 Nasal Cannula 2.0 I&O- Last 24 Hours up to 6 AM 10/26/16 06:00 Intake Total 1110 ml Output Total 1300 ml Balance -190 ml Laboratory Data 24H LABS Laboratory Tests 2 10/26/16 06:16: White Blood Count 6.7, Red Blood Count 3.73L, Hemoglobin 11.1L, Hematocrit 34.7L , Mean Corpuscular Volume 93.1, Mean Corpuscular Hemoglobin 29.7, Mean Corpuscular Hemoglobin Concent 31.9L, Red Cell Distribution Width 14.4, Platelet Count 255, Neutrophils (%) (Auto) 83.8H, Lymphocytes (%) (Auto) 6.7L, Monocytes (%) (Auto) 5.6H, Eosinophils (%) (Auto) 1.5, Basophils (%) (Auto) 0.3 , Neutrophils # (Auto) 5.6, Lymphocytes # (Auto) 0.5L, Monocytes # (Auto) 0.4, Eosinophils # (Auto) 0.1, Basophils # (Auto) 0.0, Large Unclassified Cells % 2.1 , Large Unclassified Cells # 0.1, Anion Gap 4L, Glomerular Filtration Rate 37.2L , Blood Urea Nitrogen 51H, Creatinine 1.45H, Sodium Level 141, Potassium Level 4.0, Chloride Level 96L, Carbon Dioxide Level 41H, Calcium Level 9.0, Magnesium Level 2.0, B-Type Natriuretic Peptide > 5000H, Digoxin Level 1.1 CBC/BMP Laboratory Tests 10/26/16 06:16 Red Blood Count 3.73 L, Mean Corpuscular Volume 93.1, Mean Corpuscular Hemoglobin 29.7, Mean Corpuscular Hemoglobin Concent 31.9 L, Red Cell Distribution Width 14.4, Neutrophils (%) (Auto) 83.8 H, Lymphocytes (%) (Auto) 6.7 L, Monocytes (%) (Auto) 5.6 H, Eosinophils (%) (Auto) 1.5, Basophils (%) ( Auto) 0.3, Neutrophils # (Auto) 5.6, Lymphocytes # (Auto) 0.5 L, Monocytes # ( Auto) 0.4, Eosinophils # (Auto) 0.1, Basophils # (Auto) 0.0, Calcium Level 9.0 Microbiology Microbiology 10/23/16 Stool Occult Blood (LYNNETTE) - Final, Complete IRVING REYNOSO MD Oct 26, 2016 12:12
[2016-10-26 16:00] VITALS: BP 127/60
[2016-10-26 20:00] VITALS: BP 113/55
[2016-10-26 23:59] VITALS: BP 106/48
[2016-10-27] MEDS: SLF 3 ML SYR IV SCH ×3 (04:52→20:28)
[2016-10-27 05:08] VITALS: BP 110/59
[2016-10-27 05:46] LABS: BASO % 0.4 % (0.0-1.0); EOS # 0.1 K/mm3 (0.0-0.50); EOS % 2.8 % (0.0-3.0); LARGE UNSTAINED CELL # 0.1 K/mm3 (0.0-0.4); LARGE UNSTAINED CELL % 1.8 % (0.0-4.0); LYMPH # 0.6 K/mm3 (1.5-4.5); LYMPH % 9.5 % (24.0-44.0); MEAN CORPUSCULAR HEMOGLOBIN 29.2 pg (27.0-33.0); MEAN CORPUSCULAR HGB CONC 31.5 g/dl (32.0-36.5); MEAN CORPUSCULAR VOLUME 92.5 fl (80.0-96.0); MONO # 0.4 K/mm3 (0.0-0.8); MONO % 7.7 % (0.0-5.0); NEUTROPHILS # 3.7 K/mm3 (1.8-7.7); NEUTROPHILS % 77.7 % (36.0-66.0); PLATELET COUNT, AUTOMATED 221 k/mm3 (150-450); RED CELL DISTRIBUTION WIDTH 14.6 % (11.5-14.5); WHITE BLOOD COUNT 4.8 K/mm3 (4.0-10.0)
[2016-10-27 06:02] LABS: CALCIUM LEVEL 8.9 MG/DL (8.8-10.2); CREATININE FOR GFR 1.3 MG/DL (0.55-1.02); GLOMERULAR FILTRATION RATE 42.2 (>39); MAGNESIUM LEVEL 1.9 MG/DL (1.8-2.4); POTASSIUM SERUM 3.6 MEQ/L (3.5-5.1)
[2016-10-27 07:35] VITALS: BP 126/61
[2016-10-27] MEDS: BUDESONIDE 0.5 MG/2 ML INHALATION SUSPENSION INH SCH ×2 (07:35→20:35)
[2016-10-27] MEDS: FORMOTEROL FUMARATE 20 MCG/2 ML INHALATION SOLUTION (PERFOROMIST) INH SCH ×2 (07:36→20:35)
[2016-10-27] MEDS ORDERED: ACETAMINOPHEN TAB 650MG DOSE (2X325MG) PO PRN (08:30)
[2016-10-27] MEDS: POTASSIUM CHLORIDE 10 MEQ SR TABLET PO SCH ×2 (08:42→20:28)
[2016-10-27] MEDS: ASPIRIN 81 MG ENTERIC TAB PO SCH (08:42)
[2016-10-27] MEDS: FUROSEMIDE 100 MG/10 ML VIAL (J1940) IV SCH ×3 (08:42→20:28)
[2016-10-27] MEDS: DIGOXIN 0.125 MG TAB PO SCH (08:43)
[2016-10-27] MEDS: metOLazone 5 MG TAB PO SCH (08:43)
[2016-10-27] MEDS: APIXABAN 2.5 MG TAB (ELIQUIS) PO SCH ×2 (08:43→20:27)
[2016-10-27] MEDS ORDERED: rOPINIRole 0.25 MG TAB(REQUIP) PO SCH (09:00)
[2016-10-27] MEDS: rOPINIRole 0.25 MG TAB(REQUIP) PO SCH ×2 (09:44→20:27)
--- NOTE | 2016-10-27 10:53 | IPNPDOC ---
Subjective Date Seen The patient was seen on 10/27/16. Subjective Chief Complaint/HPI The patient is a 76-year-old female admitted with a reason for visit of Atrial Fibrillation. Events since last encounter breathing better but overall feeling tired, says cannot sleep because of fidgety and restless legs. no fever or chills, no chest pain or palpitation. no abdominal pain, leg swelling improving. Objective Physical Examination General Exam: Positive: Alert, Cooperative, No Acute Distress Eye Exam: Positive: Conjunctiva & lids normal, EOMI, Negative: Sclera icteric ENT Exam: Positive: Atraumatic Neck Exam: Positive: Supple Chest Exam: Positive: Rales (left> right), Rhonchi, Diminished (all lung lawson , generalized), Negative: Clear to auscultation, Normal air movement, Wheezing Heart Exam: Positive: Tachycardic, Irregular Rhythm, Normal S1, Normal S2, Murmurs (systolic ) Telemetry: Positive: Sinus, PVCs, PACs Abdomen Exam: Positive: Normal bowel sounds, Soft, Negative: Tenderness, Hepatospenomegaly, Mass Extremity Exam: Positive: Edema (+2 BL LE), Negative: Clubbing, Cyanosis Psych Exam: Positive: Mental status NL Assessment /Plan Problems (1) CHF (congestive heart failure) Status: Acute Response to Treatment: Stable Problem Text: acute exacerbation of chronic congestive heart failure mostly right heart failure due to pulmonary hypertension , copd and corpulmonale. will continue with iv lasix and metolazone. Last ECHoO shows EF 55-60% August 2016, impression: 1. Normal global left ventricular systolic and diastolic function. 2. Aortic valve sclerosis without stenosis or aortic regurgitation. 3. Mitral annulus calcification with mild to moderate mitral regurgitation and mild calcific mitral stenosis. 4. Mild tricuspid regurgitation with mild pulmonary hypertension. 5. Trace to small pericardial effusion noted, no evidence of cardiac tamponade. (2) Atrial fibrillation Status: Acute Response to Treatment: Stable Problem Text: paroxysmal Afib with rvr New EKG shows sinus rhythm with multiple PACS and PVCs chronic as seen in prior ekg in september. will rate control with digoxin and metoprolol on eliquis. (3) Pleural effusion due to CHF (congestive heart failure) Status: Acute Response to Treatment: Stable Problem Text: Expect pleural effusion to improve with diuresis Will continue lasix and zaroxolyn (4) Hypertension Status: Chronic Response to Treatment: Stable Problem Text: stable continue home medications (5) Chronic kidney disease Status: Chronic Response to Treatment: Stable Problem Text: Creatine better than baseline. Improving with improvement of fluid status. Will continue to monitor (6) COPD (chronic obstructive pulmonary disease) Status: Chronic Response to Treatment: Stable Problem Text: Has moderate obstructive lung disease will continue with nebulizations. O2 titrate 88-92% DuoNebs PRN (7) DVT prophylaxis Status: Acute Response to Treatment: Stable Problem Text: SCD TEDS (8) Chronic respiratory failure with hypoxia Status: Chronic Problem Text: will continue with home oxygen , requirement is at baseline. (9) Mitral valve disorder Status: Chronic Response to Treatment: Stable Problem Text: has moderate mitral regurgitation and mild stenosis. (10) History of carotid endarterectomy Status: Chronic Response to Treatment: Stable (11) Restless leg Status: Acute Problem Text: will start ropinirole and tylenol. Plan/VTE VTE Prophylaxis Ordered?: Yes VS, I&O, 24H, Fishbone Vital Signs/I&O Vital Signs Date Time Temp Pulse Resp B/P (MAP) Pulse Ox O2 Delivery O2 Flow Rate FiO2 10/27/16 08:43 82 10/27/16 08:00 Nasal Cannula 2.0 10/27/16 07:35 96.9 20 126/61 (82) 100 I&O- Last 24 Hours up to 6 AM 10/27/16 06:00 Intake Total 1590 ml Output Total 2300 ml Balance -710 ml Laboratory Data 24H LABS Laboratory Tests 2 10/27/16 05:24: White Blood Count 4.8, Red Blood Count 3.63L, Hemoglobin 10.6L, Hematocrit 33.5L , Mean Corpuscular Volume 92.5, Mean Corpuscular Hemoglobin 29.2, Mean Corpuscular Hemoglobin Concent 31.5L, Red Cell Distribution Width 14.6H, Platelet Count 221, Neutrophils (%) (Auto) 77.7H, Lymphocytes (%) (Auto) 9.5L, Monocytes (%) (Auto) 7.7H, Eosinophils (%) (Auto) 2.8, Basophils (%) (Auto) 0.4 , Neutrophils # (Auto) 3.7, Lymphocytes # (Auto) 0.6L, Monocytes # (Auto) 0.4, Eosinophils # (Auto) 0.1, Basophils # (Auto) 0.0, Large Unclassified Cells % 1.8 , Large Unclassified Cells # 0.1, Anion Gap 5L, Glomerular Filtration Rate 42.2 , Blood Urea Nitrogen 44H, Creatinine 1.30H, Sodium Level 138, Potassium Level 3.6, Chloride Level 95L, Carbon Dioxide Level 38H, Calcium Level 8.9, Magnesium Level 1.9 CBC/BMP Laboratory Tests 10/27/16 05:24 Red Blood Count 3.63 L, Mean Corpuscular Volume 92.5, Mean Corpuscular Hemoglobin 29.2, Mean Corpuscular Hemoglobin Concent 31.5 L, Red Cell Distribution Width 14.6 H, Neutrophils (%) (Auto) 77.7 H, Lymphocytes (%) (Auto ) 9.5 L, Monocytes (%) (Auto) 7.7 H, Eosinophils (%) (Auto) 2.8, Basophils (%) ( Auto) 0.4, Neutrophils # (Auto) 3.7, Lymphocytes # (Auto) 0.6 L, Monocytes # ( Auto) 0.4, Eosinophils # (Auto) 0.1, Basophils # (Auto) 0.0, Calcium Level 8.9 Microbiology Microbiology 10/23/16 Stool Occult Blood (LYNNETTE) - Final, Complete IRVING REYNOSO MD Oct 27, 2016 10:53
[2016-10-27 12:00] VITALS: BP 118/54
[2016-10-27 16:00] VITALS: BP 118/59
[2016-10-27 20:00] VITALS: BP 124/56
[2016-10-27 23:59] VITALS: BP 115/57
[2016-10-28 04:00] VITALS: BP 110/57
[2016-10-28] MEDS: SLF 3 ML SYR IV SCH ×3 (05:02→20:27)
[2016-10-28 05:26] LABS: BASO % 0.8 % (0.0-1.0); EOS # 0.1 K/mm3 (0.0-0.50); EOS % 2.3 % (0.0-3.0); LARGE UNSTAINED CELL # 0.2 K/mm3 (0.0-0.4); LYMPH # 0.5 K/mm3 (1.5-4.5); LYMPH % 9.7 % (24.0-44.0); MEAN CORPUSCULAR HEMOGLOBIN 29.7 pg (27.0-33.0); MEAN CORPUSCULAR HGB CONC 32.2 g/dl (32.0-36.5); MEAN CORPUSCULAR VOLUME 92.2 fl (80.0-96.0); MONO # 0.3 K/mm3 (0.0-0.8); MONO % 6.4 % (0.0-5.0); NEUTROPHILS % 77.8 % (36.0-66.0); PLATELET COUNT, AUTOMATED 242 k/mm3 (150-450); RED CELL DISTRIBUTION WIDTH 14.3 % (11.5-14.5); WHITE BLOOD COUNT 5.1 K/mm3 (4.0-10.0)
[2016-10-28 05:43] LABS: CALCIUM LEVEL 8.6 MG/DL (8.8-10.2); CREATININE FOR GFR 1.28 MG/DL (0.55-1.02); GLOMERULAR FILTRATION RATE 42.9 (>39); POTASSIUM SERUM 3.5 MEQ/L (3.5-5.1)
[2016-10-28] MEDS: BUDESONIDE 0.5 MG/2 ML INHALATION SUSPENSION INH SCH ×2 (07:15→19:50)
[2016-10-28] MEDS: FORMOTEROL FUMARATE 20 MCG/2 ML INHALATION SOLUTION (PERFOROMIST) INH SCH ×2 (07:15→19:50)
[2016-10-28 07:40] VITALS: BP 124/59
--- NOTE | 2016-10-28 08:30 | IPNPDOC ---
Subjective Date Seen The patient was seen on 10/28/16. Subjective Chief Complaint/HPI The patient is a 76-year-old female admitted with a reason for visit of Atrial Fibrillation. Events since last encounter feeling better, no complaints this am , legs feel better, no chest pain or sob , no abdominal pain nausea or vomiting or diarrhea. Objective Physical Examination General Exam: Positive: Alert, Cooperative, No Acute Distress Eye Exam: Positive: Conjunctiva & lids normal, EOMI, Negative: Sclera icteric ENT Exam: Positive: Atraumatic Neck Exam: Positive: Supple Chest Exam: Positive: Rales (left> right), Rhonchi, Diminished (all lung lawson , generalized), Negative: Clear to auscultation, Normal air movement, Wheezing Heart Exam: Positive: Tachycardic, Irregular Rhythm, Normal S1, Normal S2, Murmurs (systolic ) Telemetry: Positive: Sinus, PVCs, PACs Abdomen Exam: Positive: Normal bowel sounds, Soft, Negative: Tenderness, Hepatospenomegaly, Mass Extremity Exam: Positive: Edema (+2 BL LE), Negative: Clubbing, Cyanosis Psych Exam: Positive: Mental status NL Assessment /Plan Problems (1) CHF (congestive heart failure) Status: Acute Response to Treatment: Stable Problem Text: acute exacerbation of chronic congestive heart failure mostly right heart failure due to pulmonary hypertension , copd and corpulmonale. will continue with lasix po and metolazone. Last ECHoO shows EF 55-60% August 2016, impression: 1. Normal global left ventricular systolic and diastolic function. 2. Aortic valve sclerosis without stenosis or aortic regurgitation. 3. Mitral annulus calcification with mild to moderate mitral regurgitation and mild calcific mitral stenosis. 4. Mild tricuspid regurgitation with mild pulmonary hypertension. 5. Trace to small pericardial effusion noted, no evidence of cardiac tamponade. (2) Atrial fibrillation Status: Acute Response to Treatment: Stable Problem Text: paroxysmal Afib with rvr New EKG shows sinus rhythm with multiple PACS and PVCs chronic as seen in prior ekg in september. will rate control with digoxin and metoprolol on eliquis. (3) Pleural effusion due to CHF (congestive heart failure) Status: Acute Response to Treatment: Stable Problem Text: Expect pleural effusion to improve with diuresis Will continue lasix and zaroxolyn (4) Hypertension Status: Chronic Response to Treatment: Stable Problem Text: stable continue home medications (5) Chronic kidney disease Status: Chronic Response to Treatment: Stable Problem Text: Creatine better than baseline. Improving with improvement of fluid status. Will continue to monitor (6) COPD (chronic obstructive pulmonary disease) Status: Chronic Response to Treatment: Stable Problem Text: Has moderate obstructive lung disease will continue with nebulizations. O2 titrate 88-92% DuoNebs PRN (7) DVT prophylaxis Status: Acute Response to Treatment: Stable Problem Text: SCD TEDS (8) Chronic respiratory failure with hypoxia Status: Chronic Problem Text: will continue with home oxygen , requirement is at baseline. (9) Mitral valve disorder Status: Chronic Response to Treatment: Stable Problem Text: has moderate mitral regurgitation and mild stenosis. (10) History of carotid endarterectomy Status: Chronic Response to Treatment: Stable (11) Restless leg Status: Acute Problem Text: will start ropinirole and tylenol. Plan/VTE VTE Prophylaxis Ordered?: Yes VS, I&O, 24H, Fishbone Vital Signs/I&O Vital Signs Date Time Temp Pulse Resp B/P (MAP) Pulse Ox O2 Delivery O2 Flow Rate FiO2 10/28/16 04:00 Nasal Cannula 2.0 10/28/16 04:00 97.8 71 20 110/57 (74) 97 I&O- Last 24 Hours up to 6 AM 10/28/16 06:00 Intake Total 760 ml Output Total 1325 ml Balance -565 ml Laboratory Data 24H LABS Laboratory Tests 2 10/28/16 05:09: White Blood Count 5.1, Red Blood Count 3.65L, Hemoglobin 10.8L, Hematocrit 33.7L , Mean Corpuscular Volume 92.2, Mean Corpuscular Hemoglobin 29.7, Mean Corpuscular Hemoglobin Concent 32.2, Red Cell Distribution Width 14.3, Platelet Count 242, Neutrophils (%) (Auto) 77.8H, Lymphocytes (%) (Auto) 9.7L, Monocytes (%) (Auto) 6.4H, Eosinophils (%) (Auto) 2.3, Basophils (%) (Auto) 0.8, Neutrophils # (Auto) 4.0, Lymphocytes # (Auto) 0.5L, Monocytes # (Auto) 0.3, Eosinophils # (Auto) 0.1, Basophils # (Auto) 0.0, Large Unclassified Cells % 3.0 , Large Unclassified Cells # 0.2, Anion Gap 5L, Glomerular Filtration Rate 42.9 , Blood Urea Nitrogen 46H, Creatinine 1.28H, Sodium Level 139, Potassium Level 3.5, Chloride Level 94L, Carbon Dioxide Level 40H, Calcium Level 8.6L, Magnesium Level 2.0 CBC/BMP Laboratory Tests 10/28/16 05:09 Red Blood Count 3.65 L, Mean Corpuscular Volume 92.2, Mean Corpuscular Hemoglobin 29.7, Mean Corpuscular Hemoglobin Concent 32.2, Red Cell Distribution Width 14.3, Neutrophils (%) (Auto) 77.8 H, Lymphocytes (%) (Auto) 9.7 L, Monocytes (%) (Auto) 6.4 H, Eosinophils (%) (Auto) 2.3, Basophils (%) ( Auto) 0.8, Neutrophils # (Auto) 4.0, Lymphocytes # (Auto) 0.5 L, Monocytes # ( Auto) 0.3, Eosinophils # (Auto) 0.1, Basophils # (Auto) 0.0, Calcium Level 8.6 L Microbiology Microbiology 10/23/16 Stool Occult Blood (LYNNETTE) - Final, Complete IRVING REYNOSO MD Oct 28, 2016 08:30
[2016-10-28] MEDS: ASPIRIN 81 MG ENTERIC TAB PO SCH (08:38)
[2016-10-28] MEDS: DIGOXIN 0.125 MG TAB PO SCH (08:38)
[2016-10-28] MEDS: APIXABAN 2.5 MG TAB (ELIQUIS) PO SCH ×2 (08:38→20:26)
[2016-10-28] MEDS: rOPINIRole 0.25 MG TAB(REQUIP) PO SCH ×2 (08:38→20:26)
[2016-10-28] MEDS: FUROSEMIDE 20 MG TAB PO SCH ×2 (08:39→17:31)
[2016-10-28] MEDS: metOLazone 5 MG TAB PO SCH (08:39)
[2016-10-28] MEDS: POTASSIUM CHLORIDE 10 MEQ SR TABLET PO SCH ×2 (08:40→20:26)
[2016-10-28 11:00] VITALS: BP 110/56
[2016-10-28 11:50] VITALS: BP 123/55
[2016-10-28 14:00] VITALS: BP 125/57
[2016-10-28 22:00] VITALS: BP 118/54
[2016-10-29] MEDS: SLF 3 ML SYR IV SCH (05:19)
[2016-10-29 06:00] VITALS: BP 108/58
[2016-10-29 06:05] LABS: BASO % 0.4 % (0.0-1.0); EOS # 0.1 K/mm3 (0.0-0.50); EOS % 1.9 % (0.0-3.0); LARGE UNSTAINED CELL # 0.1 K/mm3 (0.0-0.4); LARGE UNSTAINED CELL % 2.2 % (0.0-4.0); LYMPH # 0.5 K/mm3 (1.5-4.5); LYMPH % 8.6 % (24.0-44.0); MEAN CORPUSCULAR HEMOGLOBIN 29.4 pg (27.0-33.0); MEAN CORPUSCULAR HGB CONC 31.7 g/dl (32.0-36.5); MEAN CORPUSCULAR VOLUME 92.6 fl (80.0-96.0); MONO # 0.4 K/mm3 (0.0-0.8); MONO % 7.7 % (0.0-5.0); NEUTROPHILS # 3.8 K/mm3 (1.8-7.7); NEUTROPHILS % 79.2 % (36.0-66.0); PLATELET COUNT, AUTOMATED 222 k/mm3 (150-450); RED CELL DISTRIBUTION WIDTH 14.8 % (11.5-14.5); WHITE BLOOD COUNT 4.8 K/mm3 (4.0-10.0)
[2016-10-29 06:18] LABS: CALCIUM LEVEL 8.8 MG/DL (8.8-10.2); CREATININE FOR GFR 1.39 MG/DL (0.55-1.02); MAGNESIUM LEVEL 1.9 MG/DL (1.8-2.4); POTASSIUM SERUM 3.5 MEQ/L (3.5-5.1)
[2016-10-29] MEDS ORDERED: ELIQ2.5T PO (06:48)
[2016-10-29] MEDS ORDERED: DIGO0.12 PO (06:48)
[2016-10-29] MEDS ORDERED: METO5TA PO (06:48)
[2016-10-29] MEDS ORDERED: LASI40TA PO (06:48)
[2016-10-29] MEDS: FORMOTEROL FUMARATE 20 MCG/2 ML INHALATION SOLUTION (PERFOROMIST) INH SCH (07:39)
[2016-10-29] MEDS: BUDESONIDE 0.5 MG/2 ML INHALATION SUSPENSION INH SCH (07:39)
[2016-10-29] MEDS: ASPIRIN 81 MG ENTERIC TAB PO SCH (07:59)
[2016-10-29] MEDS: metOLazone 5 MG TAB PO SCH (07:59)
[2016-10-29] MEDS: rOPINIRole 0.25 MG TAB(REQUIP) PO SCH (08:00)
[2016-10-29] MEDS: FUROSEMIDE 20 MG TAB PO SCH (08:00)
[2016-10-29] MEDS: DIGOXIN 0.125 MG TAB PO SCH (08:01)
[2016-10-29] MEDS: POTASSIUM CHLORIDE 10 MEQ SR TABLET PO SCH (08:01)
[2016-10-29] MEDS: APIXABAN 2.5 MG TAB (ELIQUIS) PO SCH (08:01)
[2016-10-29] MEDS ORDERED: IPRASOL4 NEB (08:24)
[2016-10-29] MEDS ORDERED: XARE15TA PO (10:07)
--- NOTE | 2016-10-29 10:28 | IPNPDOC ---
Subjective Date Seen The patient was seen on 10/29/16. Subjective Chief Complaint/HPI The patient is a 76-year-old female admitted with a reason for visit of Atrial Fibrillation. Events since last encounter no complaints this am , has some cough , no fever or chills, no chest pain or sob , no abdominal pain , nausea or vomiting or diarrhea. Eliquis will need prior authorization which cannot be done till tomorrow. Patient did not want xarelto before trying it in the hospital. will try for prior authorization tomorrow. Objective Physical Examination General Exam: Positive: Alert, Cooperative, No Acute Distress Eye Exam: Positive: Conjunctiva & lids normal, EOMI, Negative: Sclera icteric ENT Exam: Positive: Atraumatic Neck Exam: Positive: Supple Chest Exam: Positive: Rales (left> right), Rhonchi, Diminished (all lung lawson , generalized), Negative: Clear to auscultation, Normal air movement, Wheezing Heart Exam: Positive: Tachycardic, Irregular Rhythm, Normal S1, Normal S2, Murmurs (systolic ) Telemetry: Positive: Sinus, PVCs, PACs Abdomen Exam: Positive: Normal bowel sounds, Soft, Negative: Tenderness, Hepatospenomegaly, Mass Extremity Exam: Positive: Edema (+2 BL LE), Negative: Clubbing, Cyanosis Psych Exam: Positive: Mental status NL Assessment /Plan Problems (1) CHF (congestive heart failure) Status: Acute Response to Treatment: Stable Problem Text: acute exacerbation of chronic congestive heart failure mostly right heart failure due to pulmonary hypertension , copd and corpulmonale. will continue with lasix po and metolazone. Last ECHoO shows EF 55-60% August 2016, impression: 1. Normal global left ventricular systolic and diastolic function. 2. Aortic valve sclerosis without stenosis or aortic regurgitation. 3. Mitral annulus calcification with mild to moderate mitral regurgitation and mild calcific mitral stenosis. 4. Mild tricuspid regurgitation with mild pulmonary hypertension. 5. Trace to small pericardial effusion noted, no evidence of cardiac tamponade. (2) Atrial fibrillation Status: Acute Response to Treatment: Stable Problem Text: paroxysmal Afib with rvr New EKG shows sinus rhythm with multiple PACS and PVCs chronic as seen in prior ekg in september. will rate control with digoxin and metoprolol will change eliquis to xarelto. (3) Pleural effusion due to CHF (congestive heart failure) Status: Acute Response to Treatment: Stable Problem Text: Expect pleural effusion to improve with diuresis Will continue lasix and zaroxolyn (4) Hypertension Status: Chronic Response to Treatment: Stable Problem Text: stable continue home medications (5) Chronic kidney disease Status: Chronic Response to Treatment: Stable Problem Text: Creatine better than baseline. Improving with improvement of fluid status. Will continue to monitor (6) COPD (chronic obstructive pulmonary disease) Status: Chronic Response to Treatment: Stable Problem Text: Has moderate obstructive lung disease will continue with nebulizations. O2 titrate 88-92% DuoNebs PRN (7) DVT prophylaxis Status: Acute Response to Treatment: Stable Problem Text: SCD TEDS (8) Chronic respiratory failure with hypoxia Status: Chronic Problem Text: will continue with home oxygen , requirement is at baseline. (9) Mitral valve disorder Status: Chronic Response to Treatment: Stable Problem Text: has moderate mitral regurgitation and mild stenosis. (10) History of carotid endarterectomy Status: Chronic Response to Treatment: Stable (11) Restless leg Status: Acute Problem Text: will start ropinirole and tylenol. Plan/VTE VTE Prophylaxis Ordered?: Yes VS, I&O, 24H, Fishbone Vital Signs/I&O Vital Signs Date Time Temp Pulse Resp B/P (MAP) Pulse Ox O2 Delivery O2 Flow Rate FiO2 10/29/16 08:01 72 10/29/16 07:39 Nasal Cannula 2.0 10/29/16 06:00 97.3 20 108/58 (75) 100 I&O- Last 24 Hours up to 6 AM 10/29/16 06:00 Intake Total 480 ml Output Total 700 ml Balance -220 ml Laboratory Data 24H LABS Laboratory Tests 2 10/29/16 05:32: White Blood Count 4.8, Red Blood Count 3.59L, Hemoglobin 10.5L, Hematocrit 33.3L , Mean Corpuscular Volume 92.6, Mean Corpuscular Hemoglobin 29.4, Mean Corpuscular Hemoglobin Concent 31.7L, Red Cell Distribution Width 14.8H, Platelet Count 222, Neutrophils (%) (Auto) 79.2H, Lymphocytes (%) (Auto) 8.6L, Monocytes (%) (Auto) 7.7H, Eosinophils (%) (Auto) 1.9, Basophils (%) (Auto) 0.4 , Neutrophils # (Auto) 3.8, Lymphocytes # (Auto) 0.5L, Monocytes # (Auto) 0.4, Eosinophils # (Auto) 0.1, Basophils # (Auto) 0.0, Large Unclassified Cells % 2.2 , Large Unclassified Cells # 0.1, Anion Gap 6L, Glomerular Filtration Rate 39.0 , Blood Urea Nitrogen 44H, Creatinine 1.39H, Sodium Level 138, Potassium Level 3.5, Chloride Level 94L, Carbon Dioxide Level 38H, Calcium Level 8.8, Magnesium Level 1.9, B-Type Natriuretic Peptide > 5000H CBC/BMP Laboratory Tests 10/29/16 05:32 Red Blood Count 3.59 L, Mean Corpuscular Volume 92.6, Mean Corpuscular Hemoglobin 29.4, Mean Corpuscular Hemoglobin Concent 31.7 L, Red Cell Distribution Width 14.8 H, Neutrophils (%) (Auto) 79.2 H, Lymphocytes (%) (Auto ) 8.6 L, Monocytes (%) (Auto) 7.7 H, Eosinophils (%) (Auto) 1.9, Basophils (%) ( Auto) 0.4, Neutrophils # (Auto) 3.8, Lymphocytes # (Auto) 0.5 L, Monocytes # ( Auto) 0.4, Eosinophils # (Auto) 0.1, Basophils # (Auto) 0.0, Calcium Level 8.8 Microbiology Microbiology 10/23/16 Stool Occult Blood (LYNNETTE) - Final, Complete IRVING REYNOSO MD Oct 29, 2016 10:28
[2016-10-29] MEDS ORDERED: RIVAROXABAN 15 MG TAB (XARELTO) PO SCH (18:00)
[2016-10-30] MEDS ORDERED: ELIQ2.5T PO (10:29)
--- NOTE | 2016-10-30 11:23 | DSES ---
DATE OF ADMISSION: 10/21/2016 DATE OF DISCHARGE: 10/29/2016 PRIMARY CARE PROVIDER: Lopez Pulido. DISCHARGE DIAGNOSES: Acute and chronic congestive right sided heart failure. Atrial fibrillation with rapid ventricular response. Chronic pleural effusion on the right. Chronic kidney disease (CKD) stage III. Hypertension. Chronic respiratory failure with hypoxia. Chronic obstructive pulmonary disease (COPD). Mitral regurgitation and mild mitral stenosis. History of carotid endarterectomy. Restless leg. Pulmonary hypertension and cor pulmonale. DISCHARGE MEDICATIONS: - albuterol ipratropium one Respule three times daily as needed shortness of breath - Eliquis 2.5 mg by mouth three times daily - digoxin 0.125 mg by mouth daily - Lasix 40 mg twice daily - metolazone 5 mg on alternate days - albuterol meter dose inhaler two puffs inhalation four times daily as needed shortness of breath - aspirin 81 mg by mouth daily - Flonase one spray both nostrils daily - potassium chloride 10 mEq by mouth twice daily - Advair discus 250/50 one puff inhalation twice daily HOSPITAL COURSE: This is a 76-year-old female presented to the hospital for shortness of breath as well as leg pain and swelling. Her legs were so swollen and painful that she could not bear weight. She was also having some orthopnea. In the emergency room, she was found to have atrial fibrillation with rapid ventricular response. Patient was also found to have to be fluid overloaded. Patient was started on aggressive diuresis and atrial fibrillation rate was controlled with digoxin. Patient was also started on anticoagulation. Patient did well with diuresis with improvement in her leg swelling and pain and some improvement in her shortness of breath. Patient was also noted to have pleural effusion which remains unchanged from before as patient's oxygen requirement was at baseline and patient's symptoms of shortness of breath had improved so the pleural effusion was not tapped. Patient did have prior tapping done during prior admissions about four times and the patient also did not want any further tapping at this point. Patient did well in the hospital. She was seen by physical therapy and with an improvement in her swelling and an improvement in her shortness of breath, her functional status improved. On the day of discharge, she did not have any complaints. Vitals were stable and she was functionally close to her baseline. PHYSICAL EXAMINATION: Vital signs: Temperature 97.3, pulse 72, respiratory rate 20, blood pressure 108/58, pulse oximetry 100% with 2 liters nasal cannula. General: Patient awake, alert, oriented times three sitting up in bed in no acute distress. HEENT: Normocephalic, atraumatic. Moist mucous membranes. Anicteric eyes. Chest: Poor air entry. Some diffuse crackles present. Cardiovascular: S1, S2. Irregular. No rub, murmur or gallop. Abdomen: Soft, nontender, bowel sounds present. Extremities: 1-2+ edema. LABORATORY DATA: WBC 4.8, hemoglobin 10.5, platelets 222. Sodium 138, potassium 3.5, chloride 94, bicarbonate 38, BUN 44, creatinine 1.39. BNP remained good at 5000. Digoxin level was 1.1. DISPOSITION: Patient is discharged home in stable condition. DISCHARGE INSTRUCTIONS: Patient to followup with primary care provider in 1 week. No added salt diet. Fluid restriction 1.5 liter. Activity as tolerated. MTDD
== END 2016-10-29 10:55 | disposition home or self-care (01) | DRG 187 ==
LOC: M ED 19:37 → M ED INP 22:54 → M PCU 10-22 01:07 → M MSPAV 10-28 13:35
PROVIDERS: ATTEND Internal Medicine Nephrology
DX: J90 Pleural effusion, not elsewhere classified (principal); J96.11 Chronic respiratory failure with hypoxia; J44.9 Chronic obstructive pulmonary disease, unspecified; I48.91 Unspecified atrial fibrillation; N18.3 Chronic kidney disease, stage 3 (moderate); I13.0 Hypertensive heart and chronic kidney disease with heart failure and stage 1 through stage 4 chronic kidney disease, or unspecified chronic kidney disease; Z79.82 Long term (current) use of aspirin; Z88.8 Allergy status to other drugs, medicaments and biological substances; Z79.899 Other long term (current) drug therapy; Z99.81 Dependence on supplemental oxygen; I50.9 Heart failure, unspecified; I27.2 Other secondary pulmonary hypertension; I34.8 Other nonrheumatic mitral valve disorders; Z98.62 Peripheral vascular angioplasty status

== ENCOUNTER 2016-11-18 03:19 | Inpatient (IN) | payer MEDICARE ==
[~2016-11-18] VITALS: Ht 157.5 cm; Wt 62.1 kg
[~2016-11-18 03:19] MED LIST changes: +DIGO0.12 PO; +ELIQ2.5T PO; +IPRASOL4 NEB; +LASI40TA PO; +METO5TA PO; +POTA10CA PO; +XARE15TA PO
[2016-11-18] MEDS ORDERED: METO25TA (03:45)
[2016-11-18] MEDS ORDERED: DIGO0.12 PO (03:45)
[2016-11-18 04:31] LABS: VENOUS BASE EXCESS 11.7 (-2.0-2.0); VENOUS PARTIAL PRESSURE CO2 57.1 mmHg (38.0-50.0); VENOUS PARTIAL PRESSURE O2 37.9 mmHg (30.0-50.0); VENOUS STANDARD HCO3 34.8 MEQ/L; VENOUS TOTAL CO2 39.6 MEQ/L (24.0-28.0)
[2016-11-18 04:34] LABS: BASO % 0.4 % (0.0-1.0); EOS # 0.1 K/mm3 (0.0-0.50); EOS % 1.5 % (0.0-3.0); LARGE UNSTAINED CELL # 0.1 K/mm3 (0.0-0.4); LARGE UNSTAINED CELL % 1.1 % (0.0-4.0); LYMPH # 0.5 K/mm3 (1.5-4.5); LYMPH % 5.7 % (24.0-44.0); MEAN CORPUSCULAR HGB CONC 31.6 g/dl (32.0-36.5); MEAN CORPUSCULAR VOLUME 91.6 fl (80.0-96.0); MONO # 0.4 K/mm3 (0.0-0.8); MONO % 5.7 % (0.0-5.0); NEUTROPHILS # 6.2 K/mm3 (1.8-7.7); NEUTROPHILS % 85.7 % (36.0-66.0); PLATELET COUNT, AUTOMATED 237 k/mm3 (150-450); RED CELL DISTRIBUTION WIDTH 16.2 % (11.5-14.5); WHITE BLOOD COUNT 7.3 K/mm3 (4.0-10.0)
[2016-11-18] MEDS ORDERED: FUROSEMIDE 40 MG/4 ML VIAL (J1940) IV ONE (05:00)
[2016-11-18 05:05] LABS: CALCIUM LEVEL 8.4 MG/DL (8.8-10.2); CREATININE FOR GFR 1.43 MG/DL (0.55-1.02); GLOMERULAR FILTRATION RATE 37.8 (>39); POTASSIUM SERUM 3.4 MEQ/L (3.5-5.1)
[2016-11-18] MEDS ORDERED: POTASSIUM CHLORIDE 10 MEQ SR TABLET PO ONE (05:45)
[2016-11-18] MEDS ORDERED: HEPARIN SOD (PORCINE) 5000 UNITS/ML VIAL SC SCH (06:00)
[2016-11-18] MEDS ORDERED: ELIQ2.5T PO (06:12)
[2016-11-18] MEDS ORDERED: INCR1INH INH (06:12)
[2016-11-18] MEDS ORDERED: METO5TA PO (06:12)
[2016-11-18] MEDS ORDERED: IPRASOL4 INH (06:12)
[2016-11-18] MEDS ORDERED: DIOV80TA2 PO (06:12)
[2016-11-18] MEDS ORDERED: FURO40TA2 PO (06:12)
[2016-11-18 07:00] VITALS: BP 116/57
[2016-11-18] MEDS: ADVAIR HFA 115/21MCG INHALER INH SCH ×2 (09:00→20:08)
[2016-11-18] MEDS ORDERED: DIGOXIN 0.125 MG TAB PO SCH (09:00)
[2016-11-18] MEDS: IPRATROPIUM 0.5MG/ALBUTEROL 2.5MG INH SOL UD 3ML (DUONEB)(J7620) INH SCH ×3 (09:04→23:48)
[2016-11-18] MEDS: FUROSEMIDE 40 MG/4 ML VIAL (J1940) IV SCH ×4 (09:06→21:08)
--- NOTE | 2016-11-18 09:37 | REP ---
CHEST X-RAY PA AND LATERAL: 11/18/2016. Comparison: 10/26/2016, 10/21/2016. Clinical history: Dyspnea and cough. Findings: Lungs are adequately inflated. There are bilateral pleural effusions right much greater than left. Allowing for the difference in degree of inflation. I do not see significant change from the previous exam for effusion size. There is compressive atelectasis or infiltrate right greater than left base. Cardiomegaly noted. Pulmonary venous hypertension evident with some interstitial edema. Tortuous calcified aorta, unchanged. Airway intact. Axillary surgical clips noted bilaterally. The bony thorax shows no compression deformity but is demineralized. No free air. Impression: 1. Cardiomegaly with vascular redistribution, interstitial edema and bilateral pleural effusions, right much greater than left. All of this not much changed allowing for differences in degree of inflation from the previous study. 2. Fairly extensive bibasilar compressive atelectasis or infiltrates right greater than left. This also appears fairly stable. Signed by Gordo Hopper MD 11/18/2016 07:47 P
--- NOTE | 2016-11-18 09:37 | HPE ---
DATE OF ADMISSION: 11/18/2016 PRIMARY CARE PROVIDER: Dr. Pulido LOSS CLAIM CLERK: Dr. Lira. CODE STATUS: Full code. CHIEF COMPLAINT: Increased shortness of breath. HISTORY OF PRESENT ILLNESS: Ms. Redman is a pleasant, 76-year-old female who presents to the emergency department this evening with increasing shortness of breath, paroxysmal nocturnal dyspnea (PND) and orthopnea for the last few days and has noticed a 4-5 pound weight gain. She was recently treated and released from the hospital a few weeks ago for similar symptoms and has had medications adjusted by Dr. Lira regarding her heart failure. She was evaluated by the emergency department physician this evening and with her increasing shortness of breath, jugular venous distention (JVD) was noted, crackles in the lung, increased lower extremity edema, weight gain and findings suggestive of congestive heart failure (CHF) with elevated BNP. She was given a dose of IV Lasix and the hospitalist was called for admission. PAST MEDICAL HISTORY: 1. Chronic kidney disease (CKD) stage III. 2. Chronic obstructive pulmonary disease (COPD), oxygen dependent on 2 liters at home. 3. History of cor pulmonale and recurrent pleural effusion. 4. CHF. 5. Hypertension. 6. Cor pulmonale 7. Subclavian steal syndrome. 8. Paroxysmal atrial fibrillation. PAST SURGICAL HISTORY: 1. Partial hysterectomy. 2. Vascular surgery for subclavian steal syndrome. ALLERGIES: - BETA BLOCKERS - STATIN SOCIAL HISTORY: The patient is a former smoker, quit more than 6 years ago. She smoked half a pack a day for approximately 50 years. She denies any alcohol use. No recent travel. She lives at home alone. FAMILY HISTORY: Noncontributory. CURRENT MEDICATIONS: - Eliquis 2.5 mg twice a day - aspirin 81 mg daily - Flonase nasal spray 1 spray per nostril daily - Lasix 40 mg twice a day - potassium chloride 40 mEq daily - Advair HFA inhaler 115/21 micrograms inhaled twice a day REVIEW OF SYSTEMS: Constitutional: She denies fevers, chills, change in appetite. She has been following a per day fluid restriction. HEENT: She denies lightheaded, dizziness, blurry vision, double vision or tinnitus. No difficulty with speech or swallow. Pulmonary: She has had increasing shortness of breath, dyspnea on exertion, nonproductive cough. No hemoptysis. Cardiovascular: She denies chest pain, but she does have PND, orthopnea and lower extremity edema which she has noted up to above her knees and a 4-5 pound weight loss over the last 48 hours. Prior history of paroxysmal atrial fibrillation which she has been rate controlled for. Gastrointestinal (GI): She denies nausea, vomiting, diarrhe. Her bowel movements are regular. She denies hematochezia or melena. Genitourinary (): No dysuria, frequency or hematuria. Musculoskeletal: No bone, muscle or pain, swelling or erythema. Neurologic: She denies paresthesias or paralysis. No loss of consciousness. No headaches. Endocrine: Negative for diabetes. Negative for thyroid disorder. Hematology: No bleeding or bruising disorder. No prior history of venous thromboembolism. Oncology: No history of cancer. Lymphatics: No lumps, bumps, swelling in the neck, axilla or groin. No weight loss. No night sweats. Psychiatric: Negative for depression. No suicidal ideation or audiovisual hallucinations. 10-point review of systems is completed, pertinent positives are listed. PHYSICAL EXAMINATION: Temperature is 97.3, pulse is 68 and regular, respiratory rate 20, blood pressure (BP) 107/52, SPO2 is 92% on 2 liters. General: The patient appears to be in no acute distress. She is alert, oriented, pleasant. HEENT: Head is atraumatic, normocephalic. Eyes: Pupils equal and reactive to light and accommodation (AZEB). Jugular venous distention (JVD) is approximately 4-5 cm at the angle of the jaw. Lungs: Diminished bibasilar breath sounds with crackles throughout all lung lawson, occasional expiratory wheezes noted. Heart: Regular rate and rhythm. Abdomen: Soft. Extremities: She does have edema palpable to above the knees which is 3+, otherwise pulses are equal distally. Neurologic: Cranial nerves II-XII grossly intact. LABORATORY DATA AND DIAGNOSTICS: 12-lead EKG sinus rhythm. She does appear to have a left ventricular strain pattern with T-wave inversion of V4, V5 and V6, ventricular rate is 72. White count 7.3, hemoglobin 10.4 and platelets 237,000. Sodium is 142, potassium 3.4 - which we will supplement, chloride 95, bicarb 36, anion gap 11, BUN is 41, creatinine 1.43, glucose 134, calcium 8.4. CK is 33, CK-MB 1.3 and troponin 0.10. Her BNP is 4520. VBG shows a pH of 7.439 and pCO2 57.1. Digoxin level is pending. There was no chest x-ray done in the emergency department, will add on a PA and lateral chest x-ray. She does have a history of recurrent pleural effusion. We will check to see if there are any issues here as well. IMPRESSION: Ms. Redman is a pleasant 76-year-old female who unfortunately is having increasing shortness of breath, dyspnea on exertion, PND, orthopnea and lower extremity edema despite having her medications adjusted recently by Dr. Lira. She does appear to have acute on chronic exacerbation of her CHF and will be admitted for further diuresis. PROBLEM LIST: 1. Acute exacerbation of congestive heart failure. Her last 2-D echo was 09/02/2016 and showed a left ventricular ejection fraction of 55-60% and some mild enlargement of the left atrium. She did have some mild tricuspid regurgitation with mild pulmonary hypertension. Trace small pericardial effusion was noted, but no evidence of cardiac tamponade. 2. Paroxysmal atrial fibrillation. She is currently rate controlled and anticoagulated on Eliquis. 3. Hypokalemia, which we will supplement. 4. History of COPD, oxygen dependent on 2 liters oxygen and this is her baseline. 5. CKD stage III. Will continue to monitor renal function. 6. History of cor pulmonale. PLAN: The patient will be admitted to the progressive care unit (PCU) on telemetry. Will continue to more aggressively diurese with net negative of Lasix and fluid restrict to 1500 mL fluid a day. Will cycle her cardiac enzymes. Continue her home medications. Deep vein thrombosis (DVT) prophylaxis, is currently on Eliquis. Will place [facility] (PFS) consult as well as physical therapy. DISPOSITION: Anticipate she will be here greater than two midnights.
--- NOTE | 2016-11-18 10:04 | ECGEPIP ---
Stationary ECG Study [facility] - ED Test Date: 2016-11-18 Pat Name: KAITLYN JOAQUIN Department: Room: [facility] Gender: F Optical Dispenser: mary : 1940 Requested By: HELIO Jones Order Number: [id number] Reading MD: Rogelio Mejias Measurements Intervals [place] Rate: 72 P: 59 NE: 176 QRS: 78 QRSD: 110 T: -51 QT: 351 QTc: 386 Interpretive Statements SINUS RHYTHM LEFT VENTRICULAR HYPERTROPHY AND ST-T CHANGE, MORE PRONOUNCED COMPARED TO 09/08/16 Electronically Signed On 11-18-2016 10:04:14 EDT by Rogelio Mejias
[2016-11-18] MEDS: POTASSIUM CHLORIDE 10 MEQ SR TABLET PO SCH ×2 (10:28→21:08)
[2016-11-18] MEDS: ASPIRIN 81 MG ENTERIC TAB PO SCH (10:28)
[2016-11-18] MEDS: APIXABAN 2.5 MG TAB (ELIQUIS) PO SCH ×2 (10:28→21:08)
[2016-11-18] MEDS: VALSARTAN 80 MG TAB (DIOVAN) PO SCH (10:30)
[2016-11-18 12:00] VITALS: BP 113/56
[2016-11-18 13:40] VITALS: BP 103/53
[2016-11-18] MEDS ORDERED: SLF 3 ML SYR IV PRN (14:30)
[2016-11-18 16:00] VITALS: BP 159/60
[2016-11-18 20:00] VITALS: BP 98/53
[2016-11-18] MEDS: SLF 3 ML SYR IV SCH (21:13)
[2016-11-18 23:59] VITALS: BP 106/50
[2016-11-19] VITALS (8 sets, daily range): BP systolic 72–114; BP diastolic 33–88
[2016-11-19] MEDS: FUROSEMIDE 40 MG/4 ML VIAL (J1940) IV SCH ×3 (00:12→09:47)
[2016-11-19] MEDS: SLF 3 ML SYR IV SCH ×3 (05:20→21:55)
[2016-11-19 05:44] LABS: MEAN CORPUSCULAR HEMOGLOBIN 29.7 pg (27.0-33.0); MEAN CORPUSCULAR HGB CONC 31.7 g/dl (32.0-36.5); MEAN CORPUSCULAR VOLUME 93.5 fl (80.0-96.0); RED CELL DISTRIBUTION WIDTH 16.3 % (11.5-14.5); WHITE BLOOD COUNT 6.1 K/mm3 (4.0-10.0)
[2016-11-19 06:31] LABS: ALBUMIN 2.4 GM/DL (3.2-5.2); CALCIUM LEVEL 8.2 MG/DL (8.8-10.2); CREATININE FOR GFR 1.52 MG/DL (0.55-1.02); GLOMERULAR FILTRATION RATE 35.2 (>39); PHOSPHORUS LEVEL 3.9 MG/DL (2.5-4.9); POTASSIUM SERUM 4.2 MEQ/L (3.5-5.1)
[2016-11-19] MEDS: IPRATROPIUM 0.5MG/ALBUTEROL 2.5MG INH SOL UD 3ML (DUONEB)(J7620) INH SCH ×3 (08:00→23:07)
[2016-11-19] MEDS: ADVAIR HFA 115/21MCG INHALER INH SCH ×2 (09:12→20:48)
[2016-11-19] MEDS: POTASSIUM CHLORIDE 10 MEQ SR TABLET PO SCH ×2 (09:48→21:55)
[2016-11-19] MEDS: VALSARTAN 80 MG TAB (DIOVAN) PO SCH (09:48)
[2016-11-19] MEDS: APIXABAN 2.5 MG TAB (ELIQUIS) PO SCH ×2 (09:48→21:55)
[2016-11-19] MEDS: ASPIRIN 81 MG ENTERIC TAB PO SCH (09:48)
[2016-11-19] MEDS ORDERED: FUROSEMIDE 100 MG/10 ML VIAL (J1940) IV ONE (10:00)
--- NOTE | 2016-11-19 11:35 | IPNPDOC ---
Text Note Date of Service The patient was seen on 11/19/16. NOTE Subjective: Patient is a 76 year old female CKD3, COPD (on 2L O2), Hx of Cor Pulmonale, Hx of Recurrent pleural effusions, CHF, HTN, Paroxysmal atrial fibrillation and Subclavian steal syndrome who presented to the ER with worsening SOB, PND and orthopnea for the last 2 days. She also noted increasing weight and lower extremity swelling. Patient was found to have decompensated systolic heart failure and admitted to the hospitalist service. She has received a dose of Lasix in the ER. Patient was seen and examined at the bedside. She notes that her breathing has improved, but her LE edema has appeared to have worsened. Objective: Vitals (See below) General: Lying in bed, no acute distress, comfortable, AAOx3 HEENT: NC, AT, No appreciable JVD CVS: RRR, +S1S2 Lungs: Fair air entry b/l, No appreciable crackles Abdomen: Soft, ND, NT, +BSx4 Extremities: 2+ pitting edema bilaterally, - Calf tenderness Assessment and plan: 1. Dyspnea - likely 2/2 acute decompensated heart failure - Presented with worsening SOB, LE edema and JVD - Clinically has improvement in breathing; LE edema persists - ECHO 08/2016: normal systolic and diastolic function ; AV sclerosis without stenosis / AR, mild TR and mild pulmonary HTN, trace to small pericardial effusion - CXR 11/18: cardiomegaly, interstitial edema, bilateral pleural effusions (R>L) - Keep on strict ins/outs, daily weights, head of bed elevation - Will adjust dose of Lasix to 60 q12H (re: CKD3) 2. Paroxysmal atrial fibrillation - c/w Digoxin - c/w anticoagulation with Eliquis 3. COPD - uses home oxygen at 2 liters - c/w Advair - c/w Duoneb PRN 4. CKD3 - Baseline Cr of 1.4-1.7 - Cr currently 1.52 - Will c/w Lasix for now 5. HTN - BP well controlled - c/w Valsartan 6. Hypokalemia - s/p supplement 7. DVT prophylaxis - c/w full anticoagulation with Eliquis VS,Fishbone, I+O VS, Fishbone, I+O Laboratory Tests 11/19/16 04:57 Red Blood Count 3.43 L, Mean Corpuscular Volume 93.5, Mean Corpuscular Hemoglobin 29.7, Mean Corpuscular Hemoglobin Concent 31.7 L, Red Cell Distribution Width 16.3 H, Anion Gap 7 L Vital Signs Date Time Temp Pulse Resp B/P (MAP) Pulse Ox O2 Delivery O2 Flow Rate FiO2 11/19/16 09:48 114/53 11/19/16 08:00 97.7 74 19 99 Nasal Cannula 2.0 I&O- Last 24 Hours up to 6 AM 11/19/16 06:00 Intake Total 850 ml Output Total 1425 ml Balance -575 ml JACQUE ANTHONY MD Nov 19, 2016 11:35
[2016-11-19] MEDS ORDERED: SALINE NOSE DROPS 30 ML PRN (12:45)
[2016-11-19] MEDS ORDERED: SODIUM CHLORIDE 0.9% 1000 ML IV ONE ×2 (12:45→16:00)
[2016-11-19] MEDS ORDERED: FUROSEMIDE 40 MG/4 ML VIAL (J1940) IV SCH (20:00)
[2016-11-20] VITALS (9 sets, daily range): BP systolic 70–94; BP diastolic 36–50
[2016-11-20 05:23] LABS: MEAN CORPUSCULAR HEMOGLOBIN 30.4 pg (27.0-33.0); MEAN CORPUSCULAR HGB CONC 33.2 g/dl (32.0-36.5); MEAN CORPUSCULAR VOLUME 91.7 fl (80.0-96.0); RED CELL DISTRIBUTION WIDTH 16.2 % (11.5-14.5); WHITE BLOOD COUNT 6.6 K/mm3 (4.0-10.0)
[2016-11-20] MEDS: SLF 3 ML SYR IV SCH ×3 (05:33→20:44)
[2016-11-20 05:36] LABS: ALBUMIN 2.1 GM/DL (3.2-5.2); CALCIUM LEVEL 8.2 MG/DL (8.8-10.2); CREATININE FOR GFR 1.49 MG/DL (0.55-1.02); PHOSPHORUS LEVEL 2.8 MG/DL (2.5-4.9); POTASSIUM SERUM 3.5 MEQ/L (3.5-5.1)
[2016-11-20] MEDS ORDERED: SODIUM CHLORIDE 0.9% 1000 ML IV ONE ×2 (07:30→09:00)
[2016-11-20] MEDS: ADVAIR HFA 115/21MCG INHALER INH SCH ×2 (07:35→20:33)
[2016-11-20] MEDS: IPRATROPIUM 0.5MG/ALBUTEROL 2.5MG INH SOL UD 3ML (DUONEB)(J7620) INH SCH ×3 (08:00→23:19)
[2016-11-20] MEDS: APIXABAN 2.5 MG TAB (ELIQUIS) PO SCH ×2 (08:48→20:43)
[2016-11-20] MEDS: ASPIRIN 81 MG ENTERIC TAB PO SCH (08:49)
[2016-11-20] MEDS: POTASSIUM CHLORIDE 10 MEQ SR TABLET PO SCH ×2 (08:49→20:44)
[2016-11-20 09:40] LABS: DIGOXIN LEVEL 1.9 NG/ML (0.5-2.0)
--- NOTE | 2016-11-20 12:47 | REP ---
CT of the chest without IV contrast: Comparisons are the chest CT dated 09/08/2016 and plain film PA and lateral views of the chest dated 11/18/2016. There is a large right pleural effusion and a small left pleural effusion, not significantly changed from the comparison studies. There is compression atelectasis of the lung lawson bilaterally adjacent to the pleural effusions. This is not significantly changed. There are normal size and borderline enlarged mediastinal nodes, not significantly changed. The unenhanced thoracic aorta contains calcified atheroma but is otherwise unremarkable and unchanged. Cardiac size is enlarged. No cardial pericardial effusion is identified. The visualized upper abdominal contents are unchanged. A cross axillary artery vascular graft is again identified, unchanged. Calcified vascular atheroma is again noted in the coronary arteries and degenerative calcification in the mitral annulus. This is unchanged. Impression: Bilateral pleural effusions with compression atelectasis of the adjacent lungs, not significantly changed. Signed by Ian Nye MD 11/20/2016 12:39 P
--- NOTE | 2016-11-20 13:56 | IPNPDOC ---
Text Note Date of Service The patient was seen on 11/20/16. NOTE Subjective: Patient is a 76 year old female CKD3, COPD (on 2L O2), Hx of Cor Pulmonale, Hx of Recurrent pleural effusions, CHF, HTN, Paroxysmal atrial fibrillation and Subclavian steal syndrome who presented to the ER with worsening SOB, PND and orthopnea for the last 2 days. She also noted increasing weight and lower extremity swelling. Patient was found to have decompensated systolic heart failure and admitted to the hospitalist service. She has received a dose of Lasix in the ER. Patient was noted to be hypotensive (SBP of 70-80s) on 11/19 afternoon. At that point she had diuresed >1000 cc. Her lasix were stopped, blood pressure medications were stopped and since she was bradycardic (50-60s) her digoxin was also stopped. She received 1 liter of fluids. Initially she reported some blurred vision and dizziness, but resolved with 1 liter of normal saline. Her blood pressure maintained in SBPs of 80. Patient was seen and examined at the bedside. Again her SBP was in 70s and she received another 1 liter of NS. She remained asymptomatic after the NS, but her BP remained in the 80s. A bedside ultrasound was performed which revealed that she did not have any significant pericardial effusion, did not have a significant elevation of her jugular vein. She had what appeared to be a reduced contractility of the heart. Dr. Sheppard was called and case discussed; will be on consult. Objective: Vitals (See below) General: Lying in bed, no acute distress, comfortable, AAOx3 HEENT: NC, AT, No appreciable JVD CVS: IrIr; Bradycardic Lungs: Fair air entry b/l, No appreciable crackles Abdomen: Soft, ND, NT, +BSx4 Extremities: 2+ pitting edema bilaterally, - Calf tenderness Assessment and plan: 1. Hypotension - possibly 2/2 hypovolemic 2/2 over-diuresis; possibly 2/2 cardiogenic etiology 2/2 reduced contractility - SBP on admission was around 100s - Clinically had some dizziness and visual problems; resolved with IV fluid hydration - Bedside ultrasound appears to show reduced contractility, no pericardial effusion, no significant vascular congestion - BP currently at SBP of 80s - Troponin first set of 0.11; will trend 2 more sets - Will order STAT ECHO; discussed with nursing supervisor powdered sugar - Hold Furosemide, Valsartan and Digoxin - s/p 2 liter of Normal Saline - Dr. Sheppard (Cardiology) consulted; appreciate their input 2. Dyspnea - likely 2/2 fluid overload - Presented with worsening SOB, LE edema and JVD - Clinically has improvement in breathing; LE edema persists - ECHO 08/2016: normal systolic and diastolic function ; AV sclerosis without stenosis / AR, mild TR and mild pulmonary HTN, trace to small pericardial effusion - CXR 11/18: cardiomegaly, interstitial edema, bilateral pleural effusions (R>L) - Keep on strict ins/outs, daily weights, head of bed elevation - s/p Lasix 3. Paroxysmal atrial fibrillation - Hold digoxin - c/w anticoagulation with Eliquis 4. COPD - uses home oxygen at 2 liters - c/w Advair - c/w Duoneb PRN 5. CKD3 - Baseline Cr of 1.4-1.7 - Cr currently 1.52 - Will c/w Lasix for now 6. HTN - BP well controlled - Hold Valsartan 7. Hypokalemia - s/p supplement 8. DVT prophylaxis - c/w full anticoagulation with Eliquis VS,Fishbone, I+O VS, Fishbone, I+O Laboratory Tests 11/20/16 04:56 Red Blood Count 3.15 L, Mean Corpuscular Volume 91.7, Mean Corpuscular Hemoglobin 30.4, Mean Corpuscular Hemoglobin Concent 33.2, Red Cell Distribution Width 16.2 H, Anion Gap 6 L Vital Signs Date Time Temp Pulse Resp B/P (MAP) Pulse Ox O2 Delivery O2 Flow Rate FiO2 11/20/16 12:00 97.0 54 18 80/40 (53) 99 Nasal Cannula 2.0 I&O- Last 24 Hours up to 6 AM 11/20/16 06:00 Intake Total 1605 ml Output Total 1125 ml Balance 480 ml JACQUE ANTHONY MD Nov 20, 2016 13:56
--- NOTE | 2016-11-20 21:28 | ECHO ---
DATE OF PROCEDURE: 11/20/2016 REFERRING PHYSICIAN: Dr. Jimenez INDICATION: Hypotension and paroxysmal atrial fibrillation. HEIGHT: 62 inches WEIGHT: 146 pounds DIMENSIONS: IVS: 1.0 LV: 5.3 LVPW: 1.1 LA: 4.3 Aorta 2.5 Ascending aorta: 3.1 RV: 2.7 FINDINGS: The study is of acceptable technical quality. Left ventricle is of normal size. There is global hypokinesis and I estimate overall ejection fraction (EF) around 35%. Right ventricle does not appear enlarged and is normally contractile. Left atrium is severely enlarged. Right atrium is at least mildly enlarged. Aortic valve is sclerotic, but it has three cusps and normal mobility. There are heavy degenerative abnormalities of mitral valve with very prominent dense calcifications at the base of posterior mitral leaflet forming "toothpaste abscess." There is also some restriction of leaflet mobility, by 2-D imaging, I would estimate mild mitral stenosis. Tricuspid valve is normal. Pulmonic valve was not well seen. No pericardial effusion is noted. Inferior vena cava is mildly dilated and has minimal appreciable collapse with respiration indicative of likely high central venous pressure. Aortic root is normal. Aortic arch was not well seen. Abdominal aorta was also poorly visualized. There is suspicion for ascites. Doppler interrogation reveals no aortic stenosis or insufficiency. There is mild mitral insufficiency and mild mitral stenosis (mean transmitral gradient 3 mmHg, peak gradient 7 mmHg, calculated mitral valve area 3.1 cm square). There is trace tricuspid insufficiency. Based on fair quality of TR jet, estimated pulmonary artery pressure is approximately in high 30s, low 40s which would correspond to moderate pulmonary hypertension. Pulmonic valve was not well seen. Mitral inflow pattern and tissue Doppler imaging of mitral annulus reveal grade 2 diastolic dysfunction (E prime velocities of septal and lateral mitral annulus are 4.4 and 6.0 cm/s respectively). CONCLUSIONS: 1. Study is of acceptable technical quality. 2. Normal LV size with global LV systolic dysfunction and estimated LVEF around 30-35%. 3. Mild mitral stenosis and insufficiency due to degenerative abnormalities of mitral valve. 4. No further significant valvular disease. 5. Elevated central venous pressure. 6. Suggestive of moderate pulmonary hypertension. Compared to echocardiogram 09/10/2016, the degenerative abnormalities of mitral valve are not appreciably changed. There has been deterioration of LV systolic function. MTDD
--- NOTE | 2016-11-20 22:14 | CR ---
DATE OF CONSULTATION: 11/20/2016 REFERRING PHYSICIAN: Bulmaro Jimenez MD INDICATION: Hypotension, congestive heart failure. HISTORY OF PRESENT ILLNESS: Mrs. Redman is somewhat known to me. I saw her once for Dr. Lira during her previous admissions. She is essentially very pleasant 76-year-old female who has had numerous admissions for congestive heart failure with bilateral pleural effusions and shortness of breath. From prior admissions, she was known to have diastolic congestive heart failure. She has known chronic obstructive pulmonary disease (COPD). Most recently she was discharged from our facility on 10/28, but she returned on 11/18/2016 with symptoms of congestive heart failure with worsening dyspnea, paroxysmal nocturnal dyspnea (PND) and peripheral edema. Her weight was only minimally increased since her last admission from 62.6 to 63.6 kg. She was given IV diuretics, but earlier today it was noted that her blood pressure was very low, as low as 70 systolic. She was not particularly symptomatic even though this morning she tells me that she felt that her vision was a little blurry, but she denies any dizziness or sensation of near/syncope. She was given a bolus of normal saline, total approximately 1 liter and during the day her blood pressure improved, but it still is on the low side with 90 systolic at the time of my evaluation. She was on valsartan, which was discontinued and also her diuretics were temporarily stopped. At the time of my evaluation, the patient tells me that she has been going downhill for several months. She said that she never really felt good and after discharge in August when I saw her last time she did not have any outpatient followup with the certified cytotechnologist that were originally from [place]. She felt that her dyspnea never truly improved. Simultaneously, she has been quite anorectic and believes that she lost approximately 20 pounds over the last 6 months. She denies any chest pain, sensation of palpitations or syncopal events. She denies any recent fever, chills, nausea, vomiting or diarrhea. PAST MEDICAL HISTORY: 1. Chronic diastolic heart failure as above. 2. Recurrent pleural effusion. She had several thoracenteses in the past. 3. Oxygen-dependent COPD. 4. History of hypertension. 5. History of subclavian steal syndrome on the right side treated surgically. 6. Paroxysmal atrial fibrillation. PAST SURGICAL HISTORY: Positive for hysterectomy and repair of subclavian stenosis. She reports intolerance to beta blockers and statins and amlodipine. SOCIAL HISTORY: The patient used to smoke, quit around 2010 or 2011. She lives currently alone, but the family is very attentive and nearby. There is no history of alcohol use. FAMILY HISTORY: No longer relevant. OUTPATIENT MEDICATIONS: - Eliquis 2.5 twice a day - aspirin 81 a day - Flonase as needed - Lasix 40 twice a day - potassium 40 mEq a day - Advair inhaler REVIEW OF SYSTEMS: She denies any recent fever, chills, nausea, vomiting or diarrhea. No chest pain. She has had paroxysmal nocturnal dyspnea (PND), orthopnea, worsening peripheral edema, anorexia. She has been feeling tired. She uses oxygen most of the time at home. She denies any bleeding problems. She did not notice any blood in her stools. Urine with no hemoptysis. The rest of review of systems is per HPI and are negative. PHYSICAL EXAMINATION: Mrs. Redman is an elderly female who appears actually older than her calendar age. She does not appear acutely ill, but she does appear chronically ill. Her appearance is actually worse than I remember in August. Last set of vital signs: blood pressure 94/50, heart rate in 50s. Currently sinus rhythm. She is afebrile. Saturation 98% on 2 liters of oxygen by nasal cannula. Weight is documented at 66.4 kg, which is about 2 kg up since admission. She is alert and oriented and appropriate and she is able to speak full sentences. Her jugular venous pressure is about 2-3 cm above clavicle. There is very noticeable fairly dramatic fluctuation with respiration. Lungs are relatively clear to auscultation in upper two/thirds, but on both lower thirds very diminished lung sounds suggestive of underlying pleural effusions. Heart exam reveals regular exam regular rhythm with ectopy. There is a systolic ejection murmur over the aortic valve area radiating towards neck. There is also some murmur apparent at the apex that is not very prominent and not more than 1 or 2 out of 6 intensity. Abdomen is soft. I do not appreciate shifting dullness or hepatosplenomegaly. Extremities have about 2+ edema bilaterally. Peripheral pulses are palpable. On the lower extremities the intensity appears to be stronger on the left upper extremity than right upper extremity. LABORATORY: As of today hemoglobin 9.6, hematocrit 28.9, platelet count 205,000 and WBC count 6.6. Basic metabolic panel: Potassium 3.5, BUN 40, creatinine 1.5 , GFR 36 and glucose 106, lactic acid 1.5, calcium 8.2, phosphorus 2.8, CK 24, CK-MB 1, and troponin 0.11 in the morning. It has been trending up. The last one was 0.15. CK, CK-MB remain normal. Albumin 2.1. Her BNP on admission was 4500, was actually less then in October. Digoxin level as of today was 1.9. There is no urinalysis. ECG reveals presence of sinus rhythm with left ventricle hypertrophy and very dramatic repolarization abnormalities, likely due to digoxin CT of the chest revealed bilateral pleural effusions, cardiomegaly, but no effusion and cross axillary vascular graft. An echocardiogram revealed presence of normal left ventricle (LV) size but at least moderate if not moderately severe LV systolic dysfunction which is global in nature. Ejection fraction (EF) estimated around 30-35%. There are prominent degenerative abnormalities of mitral valve resulting in mild stenosis and mild insufficiency. There is also trace tricuspid insufficiency. Calculated pulmonary artery pressure probably mildly elevated with elevated central venous pressure. ASSESSMENT/PLAN: It is somewhat difficult to reconcile patient's symptoms of congestive heart failure with low blood pressure. There also has been some decline in LV systolic function since August even though looking at the echocardiogram from September 10, 2016, she already had at least mild or moderately decreased systolic function back then. I would be considering diagnoses like amyloidosis or other forms of potentially restrictive cardiomyopathy, but somewhat surprisingly the patient has very high voltage on ECG, which argues against this diagnosis. The second thing that needs to be taken into consideration is her peripheral vascular disease with revascularization of right upper extremity with a transaxillary graft which would raise the possibility that the measurement of peripheral pressure is actually not accurate and we are receiving artificially reduced numbers. At this point, I would not recommend to give her additional doses of fluids as she certainly is not dehydrated. I would to just watch her overnight. Certainly, the valsartan should be discontinued. I ordered comprehensive metabolic panel to see what is her total protein and will obtain an urinalysis to make sure that she does not have nephrotic syndrome, which would raise possibility of multiple myeloma or other paraprotein. I think that it would be reasonable to ask Dr. Chacon whether some form of ultrasound can be performed to assess her perfusion of upper extremities to make sure that we are not getting spurious measurements of blood pressure. Further management then depending on results of the above. PATRICKD
[2016-11-21] VITALS: BP 92/49
[2016-11-21] MEDS ORDERED: POTASSIUM CHLORIDE 10 MEQ SR TABLET PO ONE (00:30)
[2016-11-21] MEDS: FLUTICASONE PROP 0.05% NASAL SPRAY 16 GM (FLONASE) PRN ×2 (02:46→21:00)
[2016-11-21 04:00] VITALS: BP 90/49
[2016-11-21 05:37] LABS: MEAN CORPUSCULAR VOLUME 93.7 fl (80.0-96.0); RED CELL DISTRIBUTION WIDTH 16.4 % (11.5-14.5); WHITE BLOOD COUNT 6.1 K/mm3 (4.0-10.0)
[2016-11-21 06:08] LABS: ALBUMIN 2.2 GM/DL (3.2-5.2); ALBUMIN/GLOBULIN RATIO 0.52 (1.00-1.93); BILIRUBIN,TOTAL 0.2 MG/DL (0.2-1.0); CALCIUM LEVEL 8.3 MG/DL (8.8-10.2); CREATININE FOR GFR 1.45 MG/DL (0.55-1.02); GLOMERULAR FILTRATION RATE 37.2 (>39); TOTAL PROTEIN 6.4 GM/DL (6.4-8.2)
[2016-11-21] MEDS: SLF 3 ML SYR IV SCH ×3 (06:37→21:00)
[2016-11-21] MEDS: IPRATROPIUM 0.5MG/ALBUTEROL 2.5MG INH SOL UD 3ML (DUONEB)(J7620) INH SCH ×3 (07:24→23:29)
[2016-11-21] MEDS: ADVAIR HFA 115/21MCG INHALER INH SCH ×2 (07:24→20:27)
[2016-11-21 08:00] VITALS: BP 91/53
[2016-11-21 08:46] LABS: CORTISOL AM 24.2 UG/DL (4.3-22.4)
[2016-11-21] MEDS: APIXABAN 2.5 MG TAB (ELIQUIS) PO SCH ×2 (09:03→20:59)
[2016-11-21] MEDS: POTASSIUM CHLORIDE 10 MEQ SR TABLET PO SCH ×2 (09:03→20:59)
--- NOTE | 2016-11-21 11:03 | IPNPDOC ---
Text Note Date of Service The patient was seen on 11/21/16. NOTE Subjective: Patient is a 76 year old female CKD3, COPD (on 2L O2), Hx of Cor Pulmonale, Hx of Recurrent pleural effusions, CHF, HTN, Paroxysmal atrial fibrillation and Subclavian steal syndrome who presented to the ER with worsening SOB, PND and orthopnea for the last 2 days. She also noted increasing weight and lower extremity swelling. Patient was found to have decompensated systolic heart failure and admitted to the hospitalist service. She has received a dose of Lasix in the ER. Patient was noted to be hypotensive (SBP of 70-80s) on 11/19 afternoon. At that point she had diuresed >1000 cc. Her lasix was stopped, blood pressure medications were stopped and since she was bradycardic (50-60s) her digoxin was also stopped. She received 1 liter of fluids. Initially she reported some blurred vision and dizziness, but resolved with 1 liter of normal saline. Her blood pressure maintained in SBPs of 80. On 11/20 patient was seen and examined at the bedside. Again her SBP was in 70s and she received another 1 liter of NS. She remained asymptomatic after the NS, but her BP remained in the 80s. A bedside ultrasound was performed which revealed that she did not have any significant pericardial effusion, did not have a significant elevation of her jugular vein. She had what appeared to be a reduced contractility of the heart. Dr. Sheppard was called and case discussed; will be on consult. Patient seen and examined at bedside today. No new medical complaints Objective: Vitals (See below) General: Sitting in chair comfortably, no acute distress, comfortable, AAOx3 HEENT: NC, AT, No appreciable JVD CVS: IrIr; Bradycardic Lungs: Fair air entry b/l, No appreciable crackles Abdomen: Soft, ND, NT, +BSx4 Extremities: 2+ pitting edema bilaterally, - Calf tenderness Assessment and plan: 1. Hypotension - possibly 2/2 hypovolemic 2/2 over-diuresis; possibly 2/2 cardiogenic etiology 2/2 reduced contractility - SBP on admission was around 100s - Clinically had some dizziness and visual problems; resolved with IV fluid hydration - Bedside ultrasound appears to show reduced contractility, no pericardial effusion, no significant vascular congestion - echo completed - Hold Furosemide, Valsartan and Digoxin - s/p 2 liter of Normal Saline - Dr. Sheppard (Cardiology) consulted - assistance appreciated - measurements possibly inaccurate secondary to underlying vascular disease - vascular surgery consultation pending 2. Dyspnea - likely 2/2 fluid overload - Presented with worsening SOB, LE edema and JVD - Clinically has improvement in breathing; LE edema persists - ECHO 08/2016: normal systolic and diastolic function ; AV sclerosis without stenosis / AR, mild TR and mild pulmonary HTN, trace to small pericardial effusion - CXR 11/18: cardiomegaly, interstitial edema, bilateral pleural effusions (R>L) - Keep on strict ins/outs, daily weights, head of bed elevation - s/p Lasix 3. Paroxysmal atrial fibrillation - Hold digoxin - c/w anticoagulation with Eliquis 4. COPD - uses home oxygen at 2 liters - c/w Advair - c/w Duoneb PRN 5. CKD3 - Baseline Cr of 1.4-1.7 - Cr currently 1.52 - Will c/w Lasix for now 6. HTN - BP well controlled - Hold Valsartan 7. Hypokalemia - s/p supplement 8. Proteinuria - further workup pending - complement, hepatitis panel, renal us, sera - likely nephrology consultation 9. DVT prophylaxis - c/w full anticoagulation with Eliquis VS,Fishbone, I+O VS, Fishbone, I+O Laboratory Tests 11/21/16 05:12 Red Blood Count 3.15 L, Mean Corpuscular Volume 93.7, Mean Corpuscular Hemoglobin 30.0, Mean Corpuscular Hemoglobin Concent 32.0, Red Cell Distribution Width 16.4 H, Calcium Level 8.3 L, Phosphorus Level 3.0, Aspartate Amino Transf (AST/SGOT) 15, Alanine Aminotransferase (ALT/SGPT) 18, Alkaline Phosphatase 79, Total Bilirubin 0.2, Total Protein 6.4, Albumin 2.2 L Vital Signs Date Time Temp Pulse Resp B/P (MAP) Pulse Ox O2 Delivery O2 Flow Rate FiO2 11/21/16 08:34 Nasal Cannula 2.0 11/21/16 08:00 96.9 55 18 91/53 (66) 95 I&O- Last 24 Hours up to 6 AM 11/21/16 06:00 Intake Total 1480 ml Output Total 325 ml Balance 1155 ml SOULEYMANE TYLER MD Nov 21, 2016 11:03
[2016-11-21 12:00] VITALS: BP 80/55
--- NOTE | 2016-11-21 15:44 | REP ---
Renal ultrasound: The right kidney is atrophic size measuring 6.9 x 3.3 x 3.7 cm. Left kidney is normal size measuring 10.3 x 5.1 x 5.0 cm. The right renal cortex is hyperechoic. The left renal cortex demonstrates normal echogenicity. There is no hydronephrosis, calculus or mass on the right or the left. There is a 2.4 cm right renal cyst near the hilus. There is no left renal cyst. Impression: The right kidney is atrophic size. There is a right renal cyst. The right renal cortex is hyperechoic. Otherwise, negative renal ultrasound. Bladder ultrasound: The patient voided just prior to the examination and the bladder is empty and cannot be evaluated at this time. Signed by Ian Nye MD 11/21/2016 03:36 P
[2016-11-21 16:00] VITALS: BP 101/52
[2016-11-21 19:43] VITALS: BP 84/60
[2016-11-22] VITALS (9 sets, daily range): BP systolic 104–130; BP diastolic 51–76
[2016-11-22] MEDS: IPRATROPIUM 0.5MG/ALBUTEROL 2.5MG INH SOL UD 3ML (DUONEB)(J7620) INH PRN (02:35)
[2016-11-22] MEDS: SLF 3 ML SYR IV SCH ×3 (05:16→20:44)
[2016-11-22 06:16] LABS: MEAN CORPUSCULAR HGB CONC 32.4 g/dl (32.0-36.5); MEAN CORPUSCULAR VOLUME 92.4 fl (80.0-96.0); RED CELL DISTRIBUTION WIDTH 16.5 % (11.5-14.5); WHITE BLOOD COUNT 6.5 K/mm3 (4.0-10.0)
[2016-11-22 06:26] LABS: ALBUMIN 2.3 GM/DL (3.2-5.2); CALCIUM LEVEL 8.4 MG/DL (8.8-10.2); CREATININE FOR GFR 1.37 MG/DL (0.55-1.02); GLOMERULAR FILTRATION RATE 39.7 (>39); PHOSPHORUS LEVEL 3.4 MG/DL (2.5-4.9); POTASSIUM SERUM 4.3 MEQ/L (3.5-5.1)
[2016-11-22] MEDS: ADVAIR HFA 115/21MCG INHALER INH SCH ×2 (07:55→20:16)
[2016-11-22] MEDS: IPRATROPIUM 0.5MG/ALBUTEROL 2.5MG INH SOL UD 3ML (DUONEB)(J7620) INH SCH ×3 (07:56→23:19)
[2016-11-22] MEDS: POTASSIUM CHLORIDE 10 MEQ SR TABLET PO SCH ×2 (08:45→20:44)
[2016-11-22] MEDS: APIXABAN 2.5 MG TAB (ELIQUIS) PO SCH ×2 (08:45→20:43)
[2016-11-22 11:27] LABS: ALBUMIN % 2.6 % (55.8-66.1); GAMMA GLOBULIN % 15.1 % (11.1-18.8)
--- NOTE | 2016-11-22 13:23 | IPNPDOC ---
Text Note Date of Service The patient was seen on 11/22/16. NOTE Subjective: Patient is a 76 year old female CKD3, COPD (on 2L O2), Hx of Cor Pulmonale, Hx of Recurrent pleural effusions, CHF, HTN, Paroxysmal atrial fibrillation and Subclavian steal syndrome who presented to the ER with worsening SOB, PND and orthopnea for the last 2 days. She also noted increasing weight and lower extremity swelling. Patient was found to have decompensated systolic heart failure and admitted to the hospitalist service. She has received a dose of Lasix in the ER. Patient was noted to be hypotensive (SBP of 70-80s) on 11/19 afternoon. At that point she had diuresed >1000 cc. Her lasix was stopped, blood pressure medications were stopped and since she was bradycardic (50-60s) her digoxin was also stopped. She received 1 liter of fluids. Initially she reported some blurred vision and dizziness, but resolved with 1 liter of normal saline. Her blood pressure maintained in SBPs of 80. On 11/20 patient was seen and examined at the bedside. Again her SBP was in 70s and she received another 1 liter of NS. She remained asymptomatic after the NS, but her BP remained in the 80s. A bedside ultrasound was performed which revealed that she did not have any significant pericardial effusion, did not have a significant elevation of her jugular vein. She had what appeared to be a reduced contractility of the heart. Dr. Sheppard was called and case discussed; will be on consult. Patient seen and examined at bedside today. No new medical complaints. Objective: Vitals (See below) General: Sitting in chair comfortably, no acute distress, comfortable, AAOx3 HEENT: NC, AT, No appreciable JVD CVS: regular Lungs: Fair air entry b/l, No appreciable crackles Abdomen: Soft, ND, NT, +BSx4 Extremities: peripheral lower extremity edema bilaterally, - Calf tenderness Assessment and plan: 1. Hypotension - Clinically had some dizziness and visual problems; resolved with IV fluid hydration - echo completed - s/p 2 liter of Normal Saline - Dr. Sheppard (Cardiology) consulted - assistance appreciated - measurements possibly inaccurate secondary to underlying vascular disease - vascular surgery consultation pending 2. Dyspnea - likely 2/2 fluid overload - Presented with worsening SOB, LE edema and JVD - Clinically has improvement in breathing; LE edema persists - previous ECHO 08/2016: normal systolic and diastolic function ; repeat echo with systolic dysfunction - ef 35% - CXR 11/18: cardiomegaly, interstitial edema, bilateral pleural effusions (R>L) - Keep on strict ins/outs, daily weights, head of bed elevation 3. Paroxysmal atrial fibrillation - Hold digoxin - c/w anticoagulation with Eliquis 4. COPD - uses home oxygen at 2 liters - c/w Advair - c/w Duoneb PRN 5. CKD3 - Baseline Cr of 1.4-1.7 - Will c/w Lasix for now 6. HTN - BP well controlled - Hold Valsartan 7. Hypokalemia - s/p supplement 8. Proteinuria - further workup pending - complement, hepatitis panel, renal us, sera - spep unrevealing - immunotyping pending; upep pending - likely nephrology consultation 9. DVT prophylaxis - c/w full anticoagulation with Eliquis VS,Fishbone, I+O VS, Fishbone, I+O Laboratory Tests 11/22/16 05:39 Red Blood Count 3.17 L, Mean Corpuscular Volume 92.4, Mean Corpuscular Hemoglobin 30.0, Mean Corpuscular Hemoglobin Concent 32.4, Red Cell Distribution Width 16.5 H, Anion Gap 8 Vital Signs Date Time Temp Pulse Resp B/P (MAP) Pulse Ox O2 Delivery O2 Flow Rate FiO2 11/22/16 12:00 97.8 63 18 120/67 (84) 98 Nasal Cannula 3.0 I&O- Last 24 Hours up to 6 AM 11/22/16 06:00 Intake Total 600 ml Output Total 900 ml Balance -300 ml SOULEYMANE TYLER MD Nov 22, 2016 13:23
--- NOTE | 2016-11-22 16:17 | REP ---
Skeletal survey: There are no comparisons. The skull AP and lateral views: There are small round lytic lesions, nonspecific, osteoporosis versus metastases. Cervical spine, thoracic spine and lumbar spine AP and lateral views: There is demineralization. There are no lucent or lytic lesions. There are no vertebral body compression deformities. There is degenerative disc disease throughout the cervical, thoracic and lumbar spine. Bilateral humeri AP views: There are no lytic lesions. There are surgical clips in the axilla bilaterally. AP pelvis: There are no lytic lesions. The right and left hips are unremarkable. Bilateral femurs, AP views: There are no lytic lesions. Signed by Ian Nye MD 11/22/2016 04:08 P
--- NOTE | 2016-11-22 21:32 | ECGEPIP ---
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 MAY ALSO BE RELATED TO UNDERLYING LVH COMPARED TO THE LAST 3 TRACINGS IN THE SYSTEM, PATIENT WITH PAROXYSMAL ATRIAL FIBRILLATION Electronically Signed On 11-22-2016 21:32:48 EDT by Mynor Lira
--- NOTE | 2016-11-22 22:02 | ECGEPIP ---
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
--- NOTE | 2016-11-23 02:12 | IPN ---
DATE OF SERVICE: 11/22/2016 I saw Mrs. Redman on my rounds this morning. She feels about the same. She was able to sleep reasonably well last night. Denies significant dyspnea, but she continues to feel generally unwell, tired and has very low energy. Vital signs reveal blood pressure 104/51, heart rate mostly in 50s and 60s. She is afebrile. Saturation is 97% on 3 liters of oxygen by nasal cannula. Fluid balance yesterday was documented as slightly negative about 500 mL. Documented weight is 65.8 kg. She is alert and oriented and appropriate. Her jugular venous pulse (JVP) is mildly elevated. Lungs reveal diminished breath sounds over both bases, but I do not appreciate any crackles or rhonchi. Heart exam reveals regular rhythm. No gallop. There is murmur at the apex, not very loud. Abdomen: Soft. No shifting dullness. I do not appreciate hepatosplenomegaly. There is still no significant peripheral edema. Neurologically, she appears intact other than generalized weakness. LABORATORY: Her CBC reveals anemia with hemoglobin 9.5, hematocrit 29, platelet count 185,000. Her basic metabolic panel reveals potassium 4.3, BUN 42, creatinine 1.4 for GFR 40 and glucose 110. Troponin marginally elevated 0.14 without any appreciable trend. Albumin is 2.3. Cortisol is 24. ASSESSMENT AND PLAN: Mrs. Redman is a 76-year-old female who has established chronic obstructive pulmonary disease (COPD) and chronic congestive heart failure with chronic bilateral pleural effusions that have been present for more than 6 months. She initially was treated with fairly aggressive intravenous (IV) diuresis, but she subsequently developed hypotension and all her medications were essentially discontinued. Her echocardiogram reveals left ventricular systolic dysfunction with ejection fraction (EF) around 35%, which is new compared to her echocardiogram 3 months ago when her EF was just mildly reduced. I have to admit that I have difficult time finding unifying diagnosis. She certainly does not behave in the way that I would expect in a patient with only congestive heart failure. The concomitant performed hypoalbuminemia, presence of protein in her urine and weight loss and generalized decline in my opinion is suggestive of additional systemic illness. I had a long discussion about this problem with Dr. Chowdhury today and also yesterday. He ordered fairly extensive panel for rheumatologic condition, hepatitis, potential multiple myeloma or other myeloproliferative disorders. I am going to order iron studies for tomorrow morning as she probably is also iron deficient. As her blood pressure has improved, I will reintroduce diuretics as she still has bilateral effusions. I am not introducing additional medications in spite of her LV dysfunction as her blood pressure does remain soft. I think it would be reasonable to obtain opinion of vascular surgery whether it is possible that her low blood pressure was actually artificially measured low and is a consequence of revascularization of upper extremities, which possible anastomotic stenosis. I will follow the patient with you.
[2016-11-23 04:00] VITALS: BP 146/66
[2016-11-23] MEDS: SLF 3 ML SYR IV SCH ×3 (05:59→21:07)
[2016-11-23 06:00] VITALS: BP 93/59
[2016-11-23 06:57] LABS: MEAN CORPUSCULAR HGB CONC 32.1 g/dl (32.0-36.5); MEAN CORPUSCULAR VOLUME 93.3 fl (80.0-96.0); RED CELL DISTRIBUTION WIDTH 16.5 % (11.5-14.5); WHITE BLOOD COUNT 6.8 K/mm3 (4.0-10.0)
[2016-11-23 07:17] LABS: ALBUMIN 2.3 GM/DL (3.2-5.2); CALCIUM LEVEL 7.9 MG/DL (8.8-10.2); CREATININE FOR GFR 1.44 MG/DL (0.55-1.02); GLOMERULAR FILTRATION RATE 37.5 (>39); PERCENT SATURATION 12.2 % (13.2-45.0); PHOSPHORUS LEVEL 3.1 MG/DL (2.5-4.9); POTASSIUM SERUM 4.2 MEQ/L (3.5-5.1)
[2016-11-23 08:00] VITALS: BP 109/58
[2016-11-23] MEDS: IPRATROPIUM 0.5MG/ALBUTEROL 2.5MG INH SOL UD 3ML (DUONEB)(J7620) INH SCH ×3 (08:00→23:36)
--- NOTE | 2016-11-23 08:04 | IPNPDOC ---
Text Note Date of Service The patient was seen on 11/23/16. NOTE Subjective: Patient is a 76 year old female CKD3, COPD (on 2L O2), Hx of Cor Pulmonale, Hx of Recurrent pleural effusions, CHF, HTN, Paroxysmal atrial fibrillation and Subclavian steal syndrome who presented to the ER with worsening SOB, PND and orthopnea for the last 2 days. She also noted increasing weight and lower extremity swelling. Patient was found to have decompensated systolic heart failure and admitted to the hospitalist service. She has received a dose of Lasix in the ER. Patient was noted to be hypotensive (SBP of 70-80s) on 11/19 afternoon. At that point she had diuresed >1000 cc. Her lasix was stopped, blood pressure medications were stopped and since she was bradycardic (50-60s) her digoxin was also stopped. She received 1 liter of fluids. Initially she reported some blurred vision and dizziness, but resolved with 1 liter of normal saline. Her blood pressure maintained in SBPs of 80. On 11/20 patient was seen and examined at the bedside. Again her SBP was in 70s and she received another 1 liter of NS. She remained asymptomatic after the NS, but her BP remained in the 80s. A bedside ultrasound was performed which revealed that she did not have any significant pericardial effusion, did not have a significant elevation of her jugular vein. She had what appeared to be a reduced contractility of the heart. Dr. Sheppard was called and case discussed; will be on consult. Patient seen and examined at bedside today. No new medical complaints. Still with general malaise and fatigue. Objective: Vitals (See below) General: Sitting in chair comfortably, no acute distress, comfortable, AAOx3 HEENT: NC, AT CVS: regular Lungs: Fair air entry b/l, No appreciable crackles Abdomen: Soft, ND, NT, +BSx4 Extremities: peripheral edema bilateral lower extremities, - Calf tenderness Assessment and plan: 1. Hypotension - Clinically had some dizziness and visual problems; resolved with IV fluid hydration - echo completed - reduced EF from previous echo several months ago - resumed IV furosemide and Digoxin, hold Valsartan - Dr. Sheppard (Cardiology) consulted - assistance appreciated - measurements possibly inaccurate secondary to underlying vascular disease - vascular surgery consultation pending 2. Dyspnea - likely 2/2 fluid overload - Presented with worsening SOB, LE edema and JVD - Clinically has improvement in breathing; LE edema persists - ECHO 08/2016: normal systolic and diastolic function ; AV sclerosis without stenosis / AR, mild TR and mild pulmonary HTN, trace to small pericardial effusion - repeat echo with impaired systolic function with ef 35% - CXR 11/18: cardiomegaly, interstitial edema, bilateral pleural effusions (R>L) - Keep on strict ins/outs, daily weights, head of bed elevation 3. Paroxysmal atrial fibrillation - resumed digoxin - c/w anticoagulation with Eliquis 4. COPD - uses home oxygen at 2 liters - c/w Advair - c/w Duoneb PRN 5. CKD3 - Will c/w Lasix for now - follow BMP - nephrology consultation pending 6. HTN - BP well controlled - Hold Valsartan 7. Hypokalemia - s/p supplement 8. Proteinuria - further workup pending - spep unrevealing - immunotyping pending; upep pending - nephrology consultation pending 9. DVT prophylaxis - c/w full anticoagulation with Eliquis VS,Fishbone, I+O VS, Fishbone, I+O Laboratory Tests 11/23/16 06:17 Red Blood Count 3.29 L, Mean Corpuscular Volume 93.3, Mean Corpuscular Hemoglobin 30.0, Mean Corpuscular Hemoglobin Concent 32.1, Red Cell Distribution Width 16.5 H, Anion Gap 9 Vital Signs Date Time Temp Pulse Resp B/P (MAP) Pulse Ox O2 Delivery O2 Flow Rate FiO2 11/23/16 06:00 93/59 (70) 11/23/16 04:00 97.8 64 20 98 High Flow Cannula 11/22/16 23:11 2.0 I&O- Last 24 Hours up to 6 AM 11/23/16 06:00 Intake Total 1210 ml Output Total 750 ml Balance 460 ml SOULEYMANE TYLER MD Nov 23, 2016 08:04
--- NOTE | 2016-11-23 08:25 | IPN ---
DATE: 11/23/2016 The patient's condition has not appreciably changed. She still gets easily short of breath but denies dyspnea at rest. She did not have any paroxysmal nocturnal dyspnea (PND) last night. VITAL SIGNS: Blood pressure this morning was 93/59, but was higher for the most day yesterday. She remains in sinus rhythm with heart rate mostly in 60s. She is afebrile. Saturation 98% on 2 liters. Fluid balance yesterday about equal. Weight documented 65.2. She appears chronically but not acutely ill. Her JVP is up, but not dramatically so, about 2-3 cm. Lungs are diminished over bases, but I do not appreciate any crackles. Heart exam reveals regular rhythm. No gallop. Murmur is unchanged. Abdomen is soft. I do not appreciate any convincing evidence for ascites by physical exam, but she has about 2+ edema to her knees. Neurologically she is intact. Laboratory robison, her CBC hemoglobin 9 and hematocrit 31, platelet count 194,000. Basic metabolic panel potassium 4.2, BUN 42, creatinine 1.4 for GFR 38, glucose 137. She is iron deficient, but with iron 40 and saturation 12%, but not severely so. Ferritin was 50. Most of her immune labs are pending. ASSESSMENT/PLAN: Mrs. Redman is a 76-year-old female with COPD and congestive heart failure. Unfortunately the management has been complicated by low blood pressure. I as somewhat perplexed by her episodes of low blood pressure. I am still somewhat concerned that the measurement may not be accurate because of her revascularization procedure in her upper extremities. Dr. Chacon was consulted and apparently saw the patient yesterday, but I have not seen any input from his side in her chart. She also has had numerous labs drawn looking for systemic illnesses, most of them are still pending. From my perspective, as far as the atrial fibrillation is concerned, she has been anticoagulated. I am going to put her back on really low-dose digoxin. I would like to introduce some additional medications, but with documented blood pressure in the 90s, she probably will not tolerate it, so I am going to hold on for the time being. Will restart Lasix though. I will also provide iron supplementation.
[2016-11-23] MEDS ORDERED: FUROSEMIDE 40 MG/4 ML VIAL (J1940) IV SCH (09:00)
[2016-11-23] MEDS: ADVAIR HFA 115/21MCG INHALER INH SCH ×2 (09:00→19:44)
[2016-11-23] MEDS: IRON POLYSAC (NIFEREX) 150 MG CAP PO SCH ×2 (10:04→21:02)
[2016-11-23] MEDS: APIXABAN 2.5 MG TAB (ELIQUIS) PO SCH ×2 (10:04→21:02)
[2016-11-23] MEDS: DIGOXIN 0.0625MG PER 1/2TABLET PO SCH (10:05)
[2016-11-23] MEDS: POTASSIUM CHLORIDE 10 MEQ SR TABLET PO SCH ×2 (10:06→21:02)
[2016-11-23 10:13] LABS: FREE KAPPA LIGHT CHAINS SERUM 69.8 mg/L (3.3-19.4); FREE LAMBDA LIGHT CHAINS SERUM 86.4 mg/L (5.7-26.3); KAPPA/LAMBDA RATIO SERUM 0.81 (0.26-1.65)
[2016-11-23 11:39] LABS: COMPLEMENT C4 24.3 MG/DL (10-40)
[2016-11-23 12:00] VITALS: BP 107/59
[2016-11-23] MEDS: DOBUTamine HCL 500,000 MCG in APPROPRIATE DILUENT 1 EA IV SCH (12:59)
[2016-11-23 17:01] VITALS: BP 101/56
[2016-11-23] MEDS: FUROSEMIDE injection 250 MG in D5W 225 ML IV SCH (17:20)
--- NOTE | 2016-11-23 18:46 | CR ---
DATE OF CONSULTATION: 11/23/2016 REQUESTING PHYSICIAN: Dr. Angelo Chowdhury CONSULTING PHYSICIAN: Dr. Daily REASON FOR CONSULTATION: Proteinuria and lower extremity edema in the setting of chronic kidney disease. CHIEF COMPLAINT: Patient was admitted on 11/18/2016 with worsening shortness of breath. HISTORY OF PRESENT ILLNESS: Zo Redman is a 76-year-old female with past medical history of chronic kidney disease, stage III, with a baseline creatinine of around 1.4. She has history of chronic obstructive pulmonary disease (COPD), home oxygen dependent, history of congestive heart failure, and cor pulmonale with recurrent pleural effusions. She presented to the hospital on 11/18/2016 with dyspnea, orthopnea, paroxysmal nocturnal dyspnea, worsening lower extremity edema, and inability to ambulate. Patient was initially admitted with decompensated heart failure. Patient was found to have 2+ protein on urinalysis along with hypoalbuminemia with an albumin of 2.4. Primary team was trying to manage the patient with diuretics, but she becomes hypotensive with diuretic use , and they have been unable to get rid of the excess fluid overload. Given the history of hypoalbuminemia and possibility of renal disease causing worsening edema, nephrology was called on board for further help in the management of this patient with decompensated congestive heart failure (CHF), anasarca, and hypoalbuminemia. When I saw the patient today morning, she was sitting in the sofa in moderate respiratory distress. She was on nasal cannula, but she was able to provide her history. PAST MEDICAL HISTORY: 1. Chronic kidney disease, stage III. Creatinine on admission was 1.4. 2. COPD, on home oxygen. 3. History of cor pulmonale and recurrent pleural effusions. 4. Hypertension. 5. History of subclavian steal syndrome. 6. Paroxysmal atrial fibrillation. PAST SURGICAL HISTORY: 1. Status post partial hysterectomy in the past. 2. Status post subclavian bypass surgery for subclavian steal syndrome. ALLERGIES: Patient is allergic to AMLODIPINE, BETA BLOCKERS, EZETIMIBE, FLUVASTATIN, OMEGA 3. FAMILY HISTORY: No significant family history of end-stage renal disease requiring hemodialysis. SOCIAL HISTORY: Patient denies any illicit drug abuse or alcohol abuse. She lives alone. She is a former smoker, and she quit smoking about 6 years ago. REVIEW OF SYSTEMS: CONSTITUTIONAL: Patient denies any fevers, chills, or rigors. EYES: She denies any blurry vision, double vision. ENT: She denies any dysphagia, odynophagia, ear discharge. CARDIOVASCULAR: Patient reports generalized edema, and she reports shortness of breath, but she denies any palpitations. She reports history of congestive heart failure (CHF). RESPIRATORY: Patient reports history of COPD, oxygen dependence, orthopnea, and dyspnea on mild exertion. GASTROINTESTINAL: Patient denies any nausea, vomiting. She reports decreased appetite. GENITOURINARY: She denies any dysuria or hematuria. MUSCULOSKELETAL: Patient reports edema of the lower extremities; otherwise she denies any muscle aches and pains. CENTRAL NERVOUS SYSTEM: Patient denies any history of seizures or strokes. HEMATOLOGIC/ONCOLOGIC: Patient denies any easy bruising or bleeding. ENDOCRINE: Patient denies history of diabetes, hyperthyroidism, or hypothyroidism. PSYCHIATRIC: She denies any history of depression or anxiety. SKIN: She denies any rashes or ulcers. All other review of systems is negative. PHYSICAL EXAMINATION: GENERAL: Patient is awake, alert, oriented times three, sitting in the sofa. Moderate respirations distress. She has generalized anasarca. HEAD AND NECK: Extraocular muscles intact. Pupils equally round and reactive to light. Mucous membranes are moist. Neck is supple. There is significantly elevated jugular venous distention (JVD). CARDIOVASCULAR: S1, S2, irregular heart rate. VITAL SIGNS: Temperature is 97.2 degrees Fahrenheit, blood pressure is 93/59, pulse is 66, respiratory rate of 20, saturating 96% on high-flow nasal cannula at 3 liters. RESPIRATORY: Decreased breath sounds at the bases. Decreased breath sounds on the right side up to right mid lung zone. Decreased vocal resonance on the right side. Mild inspiratory and expiratory rhonchi on the left side. ABDOMEN: Soft with positive abdominal wall edema. Mild amount of ascites. Hepatomegaly, which was tender. GENITOURINARY: No Pope at this time. No groin rashes. No hernias noted. MUSCULOSKELETAL: Normal range of movement; however, patient has 2+ pitting edema of the bilateral lower extremities and trace edema of the bilateral upper extremities. PSYCHIATRIC: Normal mood and affect. CENTRAL NERVOUS SYSTEM: No focal neurological deficit. Power is 5/5 in bilateral upper extremities. SKIN: No rashes or ulcers. LABORATORY REVIEW: CBC showed a WBC 6.8, hemoglobin 9.9, platelets of 194. BMP showed sodium 141, potassium 4.2, chloride 103, bicarbonate 29, BUN 42, creatinine is 1.44, calcium 7.9, phosphorus 3.1. Iron is 40, transferrin saturation is 12.2. Albumin is 2.3. Urinalysis done yesterday showed total protein was 126. There is no urine creatinine available. Urinalysis done on admission showed 2+ protein, 3+ leukocyte esterase, 36 WBC, and 5 RBC. Immunology: SOLANGE screen is negative. C3 and C4 levels are normal. Free kappa and lambda light chains both were high. SPEP and UPEP were negative so far. Hepatitis B surface antigen is negative. Hepatitis C antibody is negative. IMAGING: A renal ultrasound done on 11/21/2016 showed right kidney was 6.9 cm. Left kidney was 10.3 cm. Right renal cortex was hyperechoic. There was a 2.4 cm right renal cyst. Bladder was empty. Echocardiogram done on 11/20/2016 that showed global left ventricular (LV) systolic dysfunction with LV ejection fraction of around 30-35%, mild mitral stenosis, elevated central venous pressures, moderate pulmonary hypertension. CURRENT INPATIENT MEDICATIONS: Patient's medications were all reviewed by me. She is currently on: - DuoNeb nebulizations - Eliquis 2.5 mg by mouth twice a day - digoxin 0.0625 mg by mouth daily - Lasix 40 mg IV twice a day - iron 150 mg by mouth twice a day - potassium chloride 10 mEq by mouth twice a day ASSESSMENT: A 76-year-old female with past medical history of chronic kidney disease, stage III, congestive heart failure with reduced ejection fraction, chronic obstructive pulmonary disease (COPD), on home oxygen, chronic atrial fibrillation, admitted at this time because of decompensated congestive heart failure (CHF). CT scan of the chest also showed moderate right pleural effusion. Nephrology service was called for further help in the management of proteinuria, hypoalbuminemia in the setting of decompensated CHF and fluid overload. PLAN: 1. Acute decompensated systolic congestive heart failure. Patient's blood pressure is running low. She is not able to tolerate high dose of diuretics. Since the time of admission there is no change in the patient's weight. I actually see a weight gain of 1 kg since November 18. To help diurese this patient, I am going to start this patient on low dose of dobutamine infusion and start the patient on Lasix drip. Continue to monitor intake and output and daily weights. I was told by the nursing staff patient does not have good IV line available. Patient will get a peripherally inserted central catheter (PICC) line and start the infusions of above-mentioned medications. 2. Chronic kidney disease, stage III. Patient has atrophic right kidney. Most likely most of the function is coming from the left kidney; however, renal function is stable. Part of the chronic kidney disease (CKD) might be cardiorenal. It is okay to diurese the patient at this time. 3. Proteinuria. Patient has [id number] proteinuria, and urinalysis also showed positive leukocyte esterase and high amount of WBC, which might be secondary to a urinary tract infection (UTI). Although immunology and serology so far is negative, I would not do the nephrotic syndrome workup at this time, because I think lower extremity edema anasarca is secondary to decompensated congestive heart failure and possible hepatic congestion as well. I have reordered urine protein/creatinine ratio and a spot urine and a repeat urinalysis along with urine culture. There is no need of renal biopsy at this time. I do not see any hematuria with proteinuria. I do not believe patient has any glomerular disease at this time. Okay to continue the aggressive diuresis at this time. 4. COPD. Patient is currently on oxygen and nebulizations. Rest of the management is as per primary team at this time. 5. Right-sided pleural effusion. Patient will be aggressively diuresed with IV Lasix. If the symptoms do not improve, then patient might need right-sided pleural tap. 6. Paroxysmal atrial fibrillation. Digoxin was restarted by cardiology. Heart rate is well controlled at this time. Anticoagulation has been restarted with Eliquis 2.5 mg by mouth twice a day. 7. Hypotension. Valsartan was stopped by the primary team already. Patient has been started on dobutamine to help with the blood pressure while she is being aggressively diuresed. Continue the telemetry monitoring at this time. If the patient's systolic blood pressure stays above 90, I would continue the aggressive diuresis. Thank for involving us in the care of this patient. We shall be happy to follow the patient along with you tomorrow morning. The plan of care was discussed with the hospitalist team, Dr. Angelo Chowdhury. [facility] CENTERKaren
[2016-11-23] MEDS ORDERED: SODIUM CHLORIDE 0.9% INJ 10 ML SYR IV PRN (19:30)
[2016-11-23 20:00] VITALS: BP 95/53
[2016-11-24] VITALS: BP 102/66
[2016-11-24 04:00] VITALS: BP 110/57
[2016-11-24] MEDS: SLF 3 ML SYR IV SCH ×3 (05:21→20:15)
[2016-11-24] MEDS: SODIUM CHLORIDE 0.9% INJ 10 ML SYR IV SCH ×2 (05:34→16:27)
[2016-11-24 05:44] LABS: MEAN CORPUSCULAR HEMOGLOBIN 30.3 pg (27.0-33.0); MEAN CORPUSCULAR HGB CONC 32.6 g/dl (32.0-36.5); RED CELL DISTRIBUTION WIDTH 16.6 % (11.5-14.5); WHITE BLOOD COUNT 5.4 K/mm3 (4.0-10.0)
[2016-11-24 06:02] LABS: ALBUMIN 2.2 GM/DL (3.2-5.2); CALCIUM LEVEL 8.3 MG/DL (8.8-10.2); CREATININE FOR GFR 1.24 MG/DL (0.55-1.02); GLOMERULAR FILTRATION RATE 44.5 (>39); PHOSPHORUS LEVEL 3.5 MG/DL (2.5-4.9); POTASSIUM SERUM 3.8 MEQ/L (3.5-5.1)
[2016-11-24] MEDS: IPRATROPIUM 0.5MG/ALBUTEROL 2.5MG INH SOL UD 3ML (DUONEB)(J7620) INH SCH ×2 (07:29→15:22)
[2016-11-24] MEDS: ADVAIR HFA 115/21MCG INHALER INH SCH ×2 (07:29→19:44)
--- NOTE | 2016-11-24 07:45 | IPNPDOC ---
Text Note Date of Service The patient was seen on 11/24/16. NOTE Subjective: Patient is a 76 year old female CKD3, COPD (on 2L O2), Hx of Cor Pulmonale, Hx of Recurrent pleural effusions, CHF, HTN, Paroxysmal atrial fibrillation and Subclavian steal syndrome who presented to the ER with worsening SOB, PND and orthopnea for the last 2 days. She also noted increasing weight and lower extremity swelling. Patient was found to have decompensated systolic heart failure and admitted to the hospitalist service. She has received a dose of Lasix in the ER. Patient was noted to be hypotensive (SBP of 70-80s) on 11/19 afternoon. At that point she had diuresed >1000 cc. Her lasix was stopped, blood pressure medications were stopped and since she was bradycardic (50-60s) her digoxin was also stopped. She received 1 liter of fluids. Initially she reported some blurred vision and dizziness, but resolved with 1 liter of normal saline. Her blood pressure maintained in SBPs of 80. On 11/20 patient was seen and examined at the bedside. Again her SBP was in 70s and she received another 1 liter of NS. She remained asymptomatic after the NS, but her BP remained in the 80s. A bedside ultrasound was performed which revealed that she did not have any significant pericardial effusion, did not have a significant elevation of her jugular vein. She had what appeared to be a reduced contractility of the heart. Dr. Sheppard was called and case discussed; will be on consult. Patient seen and examined at bedside today. No new medical complaints. States she is feeling better today, lower extremity somewhat improved. Objective: Vitals (See below) General: Sitting in chair comfortably, no acute distress, comfortable, AAOx3 HEENT: NC, AT CVS: regular Lungs: Fair air entry b/l, left sided crackles/rhonchi Abdomen: Soft, ND, NT, +BSx4 Extremities: 1-2+ pitting edema bilaterally, improved from yesterday Assessment and plan: 1. Hypotension - Clinically had some dizziness and visual problems; resolved with IV fluid hydration - echo completed - reduced EF from previous echo several months ago - resumed furosemide and Digoxin, hold Valsartan - Dr. Sheppard (Cardiology) consulted - assistance appreciated - measurements possibly inaccurate secondary to underlying vascular disease - vascular surgery consultation appreciated - currently receiving continuous infusion of furosemide and dobutamine - nephrology consultation appreciated 2. Dyspnea - likely 2/2 fluid overload - Presented with worsening SOB, LE edema and JVD - Clinically has improvement in breathing; LE edema persists - ECHO 08/2016: normal systolic and diastolic function ; AV sclerosis without stenosis / AR, mild TR and mild pulmonary HTN, trace to small pericardial effusion - repeat echo with impaired systolic function with ef 35% - CXR 11/18: cardiomegaly, interstitial edema, bilateral pleural effusions (R>L) - Keep on strict ins/outs, daily weights, head of bed elevation - lasix/dobutamine continuous infusion 3. Paroxysmal atrial fibrillation - resumed digoxin - c/w anticoagulation with Eliquis 4. COPD - uses home oxygen at 2 liters - c/w Advair - c/w Duoneb PRN 5. CKD3 - Will c/w Lasix for now - follow BMP - creatinine improving today - nephrology consultation appreciated 6. HTN - BP well controlled - Hold Valsartan 7. Hypokalemia - s/p supplement 8. Proteinuria - further workup pending - spep unrevealing - immunotyping pending; upep pending - nephrology consultation appreciated 9. DVT prophylaxis - c/w full anticoagulation Eliquis VS,Fishbone, I+O VS, Fishbone, I+O Laboratory Tests 11/24/16 05:29 Red Blood Count 3.03 L, Mean Corpuscular Volume 93.0, Mean Corpuscular Hemoglobin 30.3, Mean Corpuscular Hemoglobin Concent 32.6, Red Cell Distribution Width 16.6 H, Anion Gap 8 Vital Signs Date Time Temp Pulse Resp B/P (MAP) Pulse Ox O2 Delivery O2 Flow Rate FiO2 11/24/16 04:00 97.6 75 20 110/57 (74) 99 High Flow Cannula 3.0 I&O- Last 24 Hours up to 6 AM 11/24/16 05:59 Intake Total 776 ml Output Total 300 ml Balance 476 ml SOULEYMANE TYLER MD Nov 24, 2016 07:45
[2016-11-24 08:00] VITALS: BP 99/55
--- NOTE | 2016-11-24 09:09 | IPN ---
DATE: 11/24/2016 Mrs. Redman tells me that she is feeling better even though she cannot explain what is the nature of improvement. She was seen by Dr. Daily yesterday and he started her on IV dobutamine and IV Lasix. So far, there has not been much of a diuretic response, but it is only a short period of time. She denies any resting dyspnea, but gets easily short of breath with minimal activity. Denies any chest pain. She remains in sinus rhythm. VITAL SIGNS: Blood pressure 110/57. She is afebrile. Saturation is 97% on 3 liters of oxygen by nasal cannula. Fluid balance yesterday was actually documented slightly positive, but she is about half a liter negative today. Weight is 68.6, which is actually quite a bit up from yesterday's, and not likely to be accurate. Her JVP is still high. Lungs are diminished on both bases. I do not appreciate any crackles. Heart exam reveals regular rhythm. No gallop. Abdomen is soft. There is still about 2+ edema to the level of her knees. Laboratory robison, CBC hemoglobin 9.2, hematocrit 28, platelet count 167,000. Basic metabolic panel potassium 3.8, BUN 42, creatinine 1.2 for a GFR of 44 and glucose 107, albumin is 2.2. ASSESSMENT/PLAN: Mrs. Redman is a 76-year-old female who has COPD and chronic respiratory insufficiency and also chronic mostly right-sided congestive heart failure with bilateral pleural effusions. Her ejection fraction has dropped compared to a study few months ago and was estimated about 35%. She initially was on a small dose ARB and was quite hypotensive, but now it was withdrawn and her blood pressure is better, so I believe that she will tolerate diuresis better. She was started on dobutamine by nephrology service yesterday. I have a little mixed feeling about this, but it looks like because her response to diuretics was poor, it is probably a reasonable thing to do. I do believe that there is likely some secondary issue contributing to her presentation. She is quite hypoalbuminemic and she has protein in the urine. I do not think that this can be explained just from her congestive heart failure. The extensive evaluation for secondary causes so far failed to reveal any obvious cause. I do not have any new recommendations. She will be covered by Dr. Lira over the weekend.
[2016-11-24] MEDS: APIXABAN 2.5 MG TAB (ELIQUIS) PO SCH ×2 (10:20→20:14)
[2016-11-24] MEDS: DIGOXIN 0.0625MG PER 1/2TABLET PO SCH (10:20)
[2016-11-24] MEDS: POTASSIUM CHLORIDE 10 MEQ SR TABLET PO SCH ×2 (10:20→20:15)
[2016-11-24] MEDS: IRON POLYSAC (NIFEREX) 150 MG CAP PO SCH ×2 (10:21→20:15)
[2016-11-24] MEDS ORDERED: metOLazone 5 MG TAB PO ONE (11:00)
[2016-11-24] MEDS ORDERED: FUROSEMIDE 20 MG/2 ML VIAL (J1940) IV ONE (11:00)
[2016-11-24 12:00] VITALS: BP_SYST 103; BP_SYST 146; BP_DIAS 58; BP_DIAS 70
[2016-11-24] MEDS: FUROSEMIDE injection 250 MG in D5W 225 ML IV SCH (12:50)
--- NOTE | 2016-11-24 17:04 | REP ---
Procedure: PICC line insertion with Alex-Allen The procedure was performed under the direct supervision of Dr. Camacho. The risks and benefits of the procedure were explained to the patient and informed consent was obtained. The right basilic vein was localized using ultrasound guidance. The skin was prepped and draped in a sterile fashion. 2% lidocaine was used as a local anesthetic. Using ultrasound guidance the basilic vein was cannulated and a 0.018 guidewire was inserted and advanced to the SVC using fluoroscopic guidance. The needle was removed and a 5.5 Cymraes dilator and peel-away sheath was inserted over the guide wire. A 5.5 Cymraes dual lumen catheter was cut to length of 34 cm. The dilator was removed and the catheter was inserted over the guide wire with the tip ending in the SVC. The peel-away sheath was removed and the catheter was flushed with heparinized saline as per Hospital protocol. The catheter was affixed to the skin and a sterile dressing was applied. The the patient tolerated the procedure well and there were no immediate complications. 0.3 minutes of fluoro time was utilized for this procedure. Reviewed by CATALINA Martin 11/23/2016 04:56 PSigned by Ian Camacho MD 11/24/2016 04:55 P
--- NOTE | 2016-11-24 18:10 | REP ---
Abdominal right upper quadrant ultrasound: There is no cholelithiasis, gallbladder wall thickening or pericholecystic fluid. The hepatic parenchyma is homogeneous. No hepatic masses. There is no intrahepatic or extrahepatic biliary duct dilatation, the common duct measures 5 mm in diameter. The visualized portion of the pancreatic head is unremarkable. The right kidney is atrophic size measuring 6.6 cm craniocaudad length. There is an upper pole 2.2 cm cyst. There is a mid pole 6 mm cyst. There is a right pleural effusion. No ascites is identified. Impression: Right pleural effusion. No ascites. Right renal cysts. Otherwise, negative abdominal right upper quadrant ultrasound. Signed by Ian Nye MD 11/24/2016 06:02 P
--- NOTE | 2016-11-24 18:58 | IPN ---
DATE: 11/24/2016 SUBJECTIVE: The patient was seen and examined at the bedside today morning. The patient was started on intravenous (IV) dobutamine and Lasix infusion yesterday. She reports that she is making more urine since the dobutamine and Lasix were started. However, according to intake and output, I do not see any significant urine output. However, the patient continues to be hemodynamically stable. I see a slight improvement in her renal function. Creatinine came down from 1.4 to 1.2 today. The patient continues to complain of moderate shortness of breath. REVIEW OF SYSTEMS: The patient denies any fevers, chills, rigors, headaches, nausea, vomiting, chest pain. She does report shortness of breath. She denies any pain abdomen, constipation, or diarrhea. She does report bilateral lower extremity edema. Rest of review of systems is negative. OBJECTIVE: VITAL SIGNS: Temperature is 96.9 degrees Fahrenheit, blood pressure is 99/55, pulse is 75, respiratory rate of 18, saturating 96% on nasal cannula at three liters. INTAKE AND OUTPUT: Urine output recorded so far since overnight is 500 mL. Weight in the bed scale is 68.6 kg. PHYSICAL EXAMINATION: GENERAL: The patient is awake, alert, and oriented times three, sitting on the sofa in mild respiratory distress. HEAD/NECK: Extraocular muscles intact. Pupils equal, round, and reactive to light. Mucous membranes are moist. Neck is supple. There is elevated jugular venous distention (JVD). CARDIOVASCULAR: S1, S2. Irregular heart rate. RESPIRATORY: Decreased breath sounds at the bases. Mild respiratory rhonchi at the bases as well, and there is decreased vocal resonance at the right side. ABDOMEN: Soft, positive bowel sounds. Positive abdominal wall edema. Liver is palpable. GENITOURINARY: No Pope catheter at this time. MUSCULOSKELETAL: Normal range of movement. The patient has 2+ pitting edema of the bilateral lower extremities and trace edema of the bilateral upper extremities. CENTRAL NERVOUS SYSTEM (CARD DOFFER): No focal neurological deficit. Power is 5/5 in all extremities. PSYCHIATRIC: Normal mood and affect. LABORATORY DATA: CBC showed a WBC of 5.4, hemoglobin 9.2, platelets of 167. BMP shows sodium 143, potassium 3.8, chloride 103, bicarbonate 32, BUN 42, creatinine 1.2, it was 1.4 yesterday. GFR is 44.5. Glucose is 107, calcium 8.3, phosphorus 3.5, albumin 2.2. Repeat urinalysis done yesterday showed 1+ protein. No blood. Negative leukocyte esterase. White cell count was three. MICROBIOLOGY: Urine culture is pending. CURRENT INPATIENT MEDICATIONS: The patient's medications were all reviewed by me. I have increased her potassium to 20 mEq by mouth twice a day. The patient was given a dose of metolazone 5 mg by mouth times one dose. She was also given Lasix 20 mg IV one dose, and her Lasix infusion rate was increased to 0.2 mg/kg per hour. ASSESSMENT: A 76-year-old female with past medical history of chronic kidney disease stage III, congestive heart failure with reduced ejection fraction, chronic obstructive pulmonary disease on home oxygen, chronic atrial fibrillation, admitted this time because of decompensated congestive heart failure, along with moderate-sized right pleural effusion. Nephrology service following the patient for management of acute kidney injury, hypoalbuminemia and fluid overload. PLAN: 1. Acute decompensated systolic congestive heart failure: The patient becomes hypotensive with IV diuretics. She was started on dobutamine infusion. She was started on Lasix drip at 0.1 mg/kg per hour. I do not see any significant urine output with that. I have increased the Lasix infusion at 0.2 mg/kg per hour. She was given another dose of Lasix 20 mg IV times one dose. She was also given metolazone 5 mg by mouth times one dose for sequential nephron tao can help with further diuresis. Because I am increasing the diuretics, I increased the potassium chloride dose to 20 mEq by mouth twice a day. Continue to monitor intake and output and daily weights. 2. Chronic kidney disease stage III: Most likely it is cardiorenal. Since I increased the diuretics, I see an improvement in the creatinine from 1.4 to 1.2. Okay to continue the diuretics at this time. 3. Proteinuria: I do not believe the patient has any glomerular disease at this time. I do not see any hematuria. Repeat urinalysis done yesterday showed only 1+ protein. I have ordered to repeat the urine protein/creatinine ratio which is still pending at this time. Although autoimmune serology done so far is negative, serum protein electrophoresis (SPEP) and urine protein electrophoresis (UPEP) are negative, because of the low albumin level, I have ordered the ultrasound of the liver to be done today. 4. COPD: Continue the oxygen at this time. Continue the nebulizations. Rest of the management is as per primary team. 5. Right-sided pleural effusion: The patient needs to be aggressively diuresed to optimize her fluid status. If her shortness of breath and pleural effusion do not improve with aggressive diuresis, then she might need a right-sided pleural tap. 6. Paroxysmal atrial fibrillation: The patient's heart rate is controlled at this time with current dose of digoxin. She is anticoagulated with Eliquis 2.5 mg by mouth twice a day. Rest of the management is as per cardiology service. 7. Hypotension. The patient's blood pressure is acceptable at this time. Continue dobutamine infusion. She is not a candidate for angiotension-converting enzyme (SOL) or angiotensin II receptor blockers (ARB) at this time because of hypotension. Once I diurese her, I will slowly start her on aldosterone antagonist. The plan of care was discussed with the patient's RN at bedside.
[2016-11-24 19:53] VITALS: BP 96/53
[2016-11-24 23:59] VITALS: BP 105/55
[2016-11-25] MEDS: IPRATROPIUM 0.5MG/ALBUTEROL 2.5MG INH SOL UD 3ML (DUONEB)(J7620) INH SCH ×4 (00:04→23:57)
[2016-11-25 03:45] VITALS: BP 93/54
[2016-11-25] MEDS: SLF 3 ML SYR IV SCH (05:06)
[2016-11-25] MEDS: SODIUM CHLORIDE 0.9% INJ 10 ML SYR IV SCH ×2 (05:06→16:19)
[2016-11-25 05:41] LABS: MEAN CORPUSCULAR HEMOGLOBIN 29.7 pg (27.0-33.0); MEAN CORPUSCULAR VOLUME 92.8 fl (80.0-96.0); RED CELL DISTRIBUTION WIDTH 16.6 % (11.5-14.5); WHITE BLOOD COUNT 6.5 K/mm3 (4.0-10.0)
[2016-11-25 05:53] LABS: ALBUMIN 2.4 GM/DL (3.2-5.2); CALCIUM LEVEL 8.5 MG/DL (8.8-10.2); CREATININE FOR GFR 1.31 MG/DL (0.55-1.02); GLOMERULAR FILTRATION RATE 41.8 (>39); PHOSPHORUS LEVEL 3.2 MG/DL (2.5-4.9); POTASSIUM SERUM 3.3 MEQ/L (3.5-5.1)
[2016-11-25] MEDS ORDERED: POTASSIUM CHLORIDE 10 MEQ SR TABLET PO ONE ×2 (06:15→13:00)
[2016-11-25] MEDS: ADVAIR HFA 115/21MCG INHALER INH SCH ×2 (07:09→19:50)
--- NOTE | 2016-11-25 07:36 | IPNPDOC ---
Text Note Date of Service The patient was seen on 11/25/16. NOTE Subjective: Patient is a 76 year old female CKD3, COPD (on 2L O2), Hx of Cor Pulmonale, Hx of Recurrent pleural effusions, CHF, HTN, Paroxysmal atrial fibrillation and Subclavian steal syndrome who presented to the ER with worsening SOB, PND and orthopnea for the last 2 days. She also noted increasing weight and lower extremity swelling. Patient was found to have decompensated systolic heart failure and admitted to the hospitalist service. She has received a dose of Lasix in the ER. Patient was noted to be hypotensive (SBP of 70-80s) on 11/19 afternoon. At that point she had diuresed >1000 cc. Her lasix was stopped, blood pressure medications were stopped and since she was bradycardic (50-60s) her digoxin was also stopped. She received 1 liter of fluids. Initially she reported some blurred vision and dizziness, but resolved with 1 liter of normal saline. Her blood pressure maintained in SBPs of 80. On 11/20 patient was seen and examined at the bedside. Again her SBP was in 70s and she received another 1 liter of NS. She remained asymptomatic after the NS, but her BP remained in the 80s. A bedside ultrasound was performed which revealed that she did not have any significant pericardial effusion, did not have a significant elevation of her jugular vein. She had what appeared to be a reduced contractility of the heart. Dr. Sheppard was called and case discussed; will be on consult. Patient seen and examined at bedside today. No new medical complaints. States she is feeling better today. Feels her legs are not as tight. Objective: Vitals (See below) General: Sitting in chair comfortably, no acute distress, comfortable, AAOx3 HEENT: NC/AT CVS: regular Lungs: Fair air entry b/l, minimal basilar rhonchi Abdomen: Soft, ND, NT, +BSx4 Extremities: 1+ pitting edema bilaterally, much improved from yesterday Assessment and plan: 1. Hypotension - resolved - currently receiving continuous infusion of furosemide and dobutamine - nephrology consultation appreciated - Clinically had some dizziness and visual problems; resolved with IV fluid hydration - echo completed - reduced EF from previous echo several months ago - resumed furosemide and Digoxin, hold Valsartan - Dr. Sheppard (Cardiology) consulted - assistance appreciated - measurements possibly inaccurate secondary to underlying vascular disease - vascular surgery consultation appreciated 2. Dyspnea - likely 2/2 fluid overload - Presented with worsening SOB, LE edema and JVD - Clinically has improvement in breathing; LE edema persists but is improving - ECHO 08/2016: normal systolic and diastolic function ; AV sclerosis without stenosis / AR, mild TR and mild pulmonary HTN, trace to small pericardial effusion - repeat echo with impaired systolic function with ef 35% - CXR 11/18: cardiomegaly, interstitial edema, bilateral pleural effusions (R>L) - Keep on strict ins/outs, daily weights, head of bed elevation - lasix/dobutamine continuous infusion - minimal negative fluid balance 3. Paroxysmal atrial fibrillation - resumed digoxin - c/w anticoagulation with Eliquis 4. COPD - uses home oxygen at 2 liters - c/w Advair - c/w Duoneb PRN 5. CKD3 - Will c/w Lasix/dobutamine infusion for now - follow BMP - nephrology consultation appreciated 6. HTN - BP well controlled - Hold Valsartan 7. Hypokalemia - replete and follow - mag level pending 8. Proteinuria - workup thus far unrevealing - nephrology consultation appreciated 9. Generalized deconditioning - pending PT eval/treat - patient states she will participate today 10. DVT prophylaxis - c/w Eliquis VS,Fishbone, I+O VS, Fishbone, I+O Laboratory Tests 11/25/16 05:20 Red Blood Count 3.07 L, Mean Corpuscular Volume 92.8, Mean Corpuscular Hemoglobin 29.7, Mean Corpuscular Hemoglobin Concent 32.0, Red Cell Distribution Width 16.6 H, Anion Gap 3 L Vital Signs Date Time Temp Pulse Resp B/P (MAP) Pulse Ox O2 Delivery O2 Flow Rate FiO2 11/25/16 06:00 Nasal Cannula 3.0 11/25/16 03:45 98.0 79 18 93/54 (24) 99 I&O- Last 24 Hours up to 6 AM 11/25/16 06:00 Intake Total 660 ml Output Total 1800 ml Balance -1140 ml SOULEYMANE TYLER MD Nov 25, 2016 07:36
[2016-11-25 08:00] VITALS: BP 94/51
[2016-11-25 08:17] LABS: MAGNESIUM LEVEL 1.9 MG/DL (1.8-2.4)
[2016-11-25] MEDS: APIXABAN 2.5 MG TAB (ELIQUIS) PO SCH ×2 (09:18→20:03)
[2016-11-25] MEDS: DIGOXIN 0.0625MG PER 1/2TABLET PO SCH (09:21)
[2016-11-25] MEDS: POTASSIUM CHLORIDE 10 MEQ SR TABLET PO SCH ×2 (09:22→20:03)
[2016-11-25] MEDS: IRON POLYSAC (NIFEREX) 150 MG CAP PO SCH ×2 (09:22→20:03)
[2016-11-25] MEDS: FUROSEMIDE injection 250 MG in D5W 225 ML IV SCH (09:23)
[2016-11-25 11:50] VITALS: BP 115/56
[2016-11-25] MEDS: DOBUTamine HCL 500,000 MCG in APPROPRIATE DILUENT 1 EA IV SCH (12:22)
--- NOTE | 2016-11-25 12:45 | IPN ---
DATE: 11/25/2016 Mrs. Zo Redman was seen this morning. She was sitting in a chair in no acute distress at rest. She denies any chest pain or palpitations. She stated that she thinks she feels better. There is no report of bleeding. There is no focal manifestation. Two days ago, she was started on intravenous (IV) dobutamine in order to increase diuresis. She has had multiple admissions in the hospital recently with congestive heart failure. It seems that according to Dr. Sheppard's note yesterday, her left ventricular ejection fraction (LVEF) has deteriorated. On physical examination, the patient is alert and oriented, in no acute distress at rest and her last vital signs today revealed a blood pressure of 94/51 with a pulse of 79, respirations 20 and her maximum temperature is 97.8 degrees Fahrenheit with an oxygen saturation of 96% on 3 liters nasal cannula. She has a negative fluid balance for yesterday of about 397 mL and so far today, it is 1.1 liters. Examination of the head, ears, eyes, nose and throat: Atraumatic. Neck is supple with extended jugular. The lungs reveal decreased breath sounds on the right in middle lung. The heart examination revealed normal S1 and S2 without gallops. The point of maximum impulse (PMI) is not displaced. There is no rub. Abdomen is soft and nontender. Extremities revealed +1 to +2 bilateral lower leg edema. Neurologic examination is negative for focal deficit. LABORATORY DATA: CBC done today revealed a WBC of 6.5, hemoglobin 9.1, hematocrit 28.5 and platelets 185,000. BMP done today revealed a sodium of 141, potassium 3.3, chloride 98, CO2 40, BUN 40, creatinine 1.3, GFR 41.8 and fasting glucose 108 with a calcium of 8.5. Serum magnesium is 1.9. IMPRESSION: A 76-year-old woman with multiple and recurrent hospitalization to this facility with manifestation of heart failure. Ejection fraction (EF) in the past was reported to be higher and now moderately depressed. It has been difficult to treat her because of low blood pressure. She is now on intravenous (IV) dobutamine and IV Lasix, and it seems that she has good urine output and will continue the same for now. This is being managed by nephrology, and she has hypokalemia and also this is being addressed. I will continue to monitor along with you from a cardiac point of view. She might benefit from further cardiac workup as an outpatient in view of the depressed LVEF. She has some persistent right pleural effusion, probably related to the congestive heart failure and I believe she is planning to see Dr. Bradley in the near future. REBECCA
[2016-11-25 16:00] VITALS: BP 94/52
[2016-11-25 20:00] VITALS: BP 92/51
[2016-11-26] VITALS (7 sets, daily range): BP systolic 85–102; BP diastolic 50–60
[2016-11-26] MEDS: FUROSEMIDE injection 250 MG in D5W 225 ML IV SCH ×2 (03:20→15:41)
[2016-11-26] MEDS: SODIUM CHLORIDE 0.9% INJ 10 ML SYR IV SCH ×2 (03:21→16:06)
[2016-11-26 07:10] LABS: BASO % 0.5 % (0.0-1.0); EOS # 0.1 K/mm3 (0.0-0.50); EOS % 2.5 % (0.0-3.0); LARGE UNSTAINED CELL # 0.1 K/mm3 (0.0-0.4); LARGE UNSTAINED CELL % 2.2 % (0.0-4.0); LYMPH # 0.5 K/mm3 (1.5-4.5); LYMPH % 7.7 % (24.0-44.0); MEAN CORPUSCULAR HEMOGLOBIN 30.2 pg (27.0-33.0); MEAN CORPUSCULAR HGB CONC 32.1 g/dl (32.0-36.5); MEAN CORPUSCULAR VOLUME 93.8 fl (80.0-96.0); MONO # 0.3 K/mm3 (0.0-0.8); MONO % 5.9 % (0.0-5.0); NEUTROPHILS # 4.2 K/mm3 (1.8-7.7); NEUTROPHILS % 81.2 % (36.0-66.0); PLATELET COUNT, AUTOMATED 188 k/mm3 (150-450); RED CELL DISTRIBUTION WIDTH 16.6 % (11.5-14.5); WHITE BLOOD COUNT 5.1 K/mm3 (4.0-10.0)
[2016-11-26] MEDS: ADVAIR HFA 115/21MCG INHALER INH SCH ×2 (07:11→20:15)
[2016-11-26] MEDS: IPRATROPIUM 0.5MG/ALBUTEROL 2.5MG INH SOL UD 3ML (DUONEB)(J7620) INH SCH ×2 (07:11→15:00)
[2016-11-26 07:38] LABS: CALCIUM LEVEL 8.4 MG/DL (8.8-10.2); CREATININE FOR GFR 1.36 MG/DL (0.55-1.02); MAGNESIUM LEVEL 1.6 MG/DL (1.8-2.4); POTASSIUM SERUM 3.6 MEQ/L (3.5-5.1)
[2016-11-26] MEDS ORDERED: MAG SULF 1GM/100ML (MAG RUN) 1 GM in APPROPRIATE DILUENT 1 EA IV ONE (07:45)
--- NOTE | 2016-11-26 07:48 | IPNPDOC ---
Text Note Date of Service The patient was seen on 11/26/16. NOTE Subjective: Patient is a 76 year old female CKD3, COPD (on 2L O2), Hx of Cor Pulmonale, Hx of Recurrent pleural effusions, CHF, HTN, Paroxysmal atrial fibrillation and Subclavian steal syndrome who presented to the ER with worsening SOB, PND and orthopnea for the last 2 days. She also noted increasing weight and lower extremity swelling. Patient was found to have decompensated systolic heart failure and admitted to the hospitalist service. She has received a dose of Lasix in the ER. Patient was noted to be hypotensive (SBP of 70-80s) on 11/19 afternoon. At that point she had diuresed >1000 cc. Her lasix was stopped, blood pressure medications were stopped and since she was bradycardic (50-60s) her digoxin was also stopped. She received 1 liter of fluids. Initially she reported some blurred vision and dizziness, but resolved with 1 liter of normal saline. Her blood pressure maintained in SBPs of 80. On 11/20 patient was seen and examined at the bedside. Again her SBP was in 70s and she received another 1 liter of NS. She remained asymptomatic after the NS, but her BP remained in the 80s. A bedside ultrasound was performed which revealed that she did not have any significant pericardial effusion, did not have a significant elevation of her jugular vein. She had what appeared to be a reduced contractility of the heart. Dr. Sheppard was called and case discussed; will be on consult. Patient seen and examined at bedside today. Continues to feel better. Still no significant ambulation/activity. Complains of dry nares. Objective: Vitals (See below) General: Sitting in chair comfortably, no acute distress, comfortable, AAOx3 HEENT: NC/AT CVS: regular Lungs: Fair air entry b/l, left rhonchi Abdomen: Soft, ND, NT, +BSx4 Extremities: 1+ pitting edema bilaterally, improving Assessment and plan: 1. Hypotension - resolved - currently receiving continuous infusion of furosemide and dobutamine - nephrology consultation appreciated - Initially had some dizziness and visual problems; resolved with IV fluid hydration - echo completed - reduced EF from previous echo several months ago - resumed furosemide and Digoxin, hold Valsartan - Dr. Sheppard (Cardiology) consulted - assistance appreciated - measurements possibly inaccurate secondary to underlying vascular disease - vascular surgery consultation appreciated 2. Dyspnea - likely 2/2 fluid overload - Presented with worsening SOB, LE edema and JVD - Clinically has improvement in breathing; LE edema persists but is improving - ECHO 08/2016: normal systolic and diastolic function ; AV sclerosis without stenosis / AR, mild TR and mild pulmonary HTN, trace to small pericardial effusion - repeat echo with impaired systolic function with ef 35% - CXR 11/18: cardiomegaly, interstitial edema, bilateral pleural effusions (R>L) - Keep on strict ins/outs, daily weights, head of bed elevation - lasix/dobutamine continuous infusion - excellent output yesterday 3. Paroxysmal atrial fibrillation - resumed digoxin - c/w anticoagulation with Eliquis 4. COPD - uses home oxygen at 2 liters - c/w Advair - c/w Duoneb PRN 5. CKD3 - Lasix/dobutamine infusion - follow BMP - nephrology consultation appreciated 6. HTN - BP well controlled - Hold Valsartan 7. Hypokalemia/hypomagnesemia - replete and follow 8. Proteinuria - workup thus far unrevealing - nephrology consultation appreciated 9. Generalized deconditioning - pending PT eval/treat 10. DVT prophylaxis - c/w Eliquis VS,Fishbone, I+O VS, Fishbone, I+O Laboratory Tests 11/26/16 06:35 Red Blood Count 3.13 L, Mean Corpuscular Volume 93.8, Mean Corpuscular Hemoglobin 30.2, Mean Corpuscular Hemoglobin Concent 32.1, Red Cell Distribution Width 16.6 H, Neutrophils (%) (Auto) 81.2 H, Lymphocytes (%) (Auto ) 7.7 L, Monocytes (%) (Auto) 5.9 H, Eosinophils (%) (Auto) 2.5, Basophils (%) ( Auto) 0.5, Neutrophils # (Auto) 4.2, Lymphocytes # (Auto) 0.5 L, Monocytes # ( Auto) 0.3, Eosinophils # (Auto) 0.1, Basophils # (Auto) 0.0, Calcium Level 8.4 L Vital Signs Date Time Temp Pulse Resp B/P (MAP) Pulse Ox O2 Delivery O2 Flow Rate FiO2 11/26/16 06:00 Nasal Cannula 3.0 11/26/16 04:00 96.8 82 18 93/50 (80) 98 I&O- Last 24 Hours up to 6 AM 11/26/16 06:00 Intake Total 1305 ml Output Total 3150 ml Balance -1845 ml SOULEYMANE TYLER MD Nov 26, 2016 07:48
[2016-11-26] MEDS ORDERED: SODIUM CHLORIDE NASAL 0.65% SPRAY BTL (OCEAN) PRN (08:00)
[2016-11-26] MEDS: APIXABAN 2.5 MG TAB (ELIQUIS) PO SCH ×2 (09:33→21:13)
[2016-11-26] MEDS: DIGOXIN 0.0625MG PER 1/2TABLET PO SCH (09:34)
[2016-11-26] MEDS: POTASSIUM CHLORIDE 10 MEQ SR TABLET PO SCH ×3 (09:35→21:13)
[2016-11-26] MEDS: IRON POLYSAC (NIFEREX) 150 MG CAP PO SCH ×2 (09:35→21:14)
[2016-11-26] MEDS: DOBUTamine HCL 500,000 MCG in APPROPRIATE DILUENT 1 EA IV SCH (09:53)
--- NOTE | 2016-11-26 10:40 | IPN ---
DATE: 11/25/2016 Mrs. Redman is seen this morning on her bedside. She is sitting in the chair at the time of my visit. She reports feeling better and improved dyspnea. She remains on IV dobutamine and Lasix drips due to her congestive heart failure. She seems to be diuresing much better since dobutamine was started along with Lasix. The patient denies any nausea, vomiting, fever or chills. PHYSICAL EXAMINATION Temperature 97.8 degrees Fahrenheit, heart rate 80 per minute and respiratory rate 20 per minute. Blood pressure 115/56 mmHg and oxygen saturation 96% on 3 liters oxygen. Intake and output from yesterday show a negative fluid balance of only about 400 mL; however, today so far she has been negative by 1145 mL with a total urine output of 1700 mL just in the 12 hours. Her head is atraumatic. Neck is supple and jugular venous distention (JVD) is moderately elevated. She has no oral thrush or ulcers. Pupils are equal and reactive to light and sclera is anicteric. Heart sounds are regular and distant. Lungs with diminished breath sounds bilaterally. Abdomen is soft and nontender and bowel sounds are normal. Extremities have no cyanosis or clubbing. Leg edema is 1+ on the left leg and 2+ on the right leg up to mid calf area. Neurologically, she is awake, alert and oriented times three. Skin has no rash or ulcers. Today's labs show WBC count 6.5, hemoglobin 9.1 and hematocrit 28.5. Platelets 185. Sodium 141 and potassium 3.3. BUN 40 and creatinine 1.31. PROBLEMS: 1. Congestive heart failure. The patient seems to be responding well to IV Lasix and dobutamine drips. We will continue with the same and monitor her urine output. She seems to have significant urine output today. I will consider to cut down her Lasix drip dose to prevent acute renal failure with over diuresis. 2. Hypokalemia. She received one dose of potassium chloride 40 mEq. She has significant urine output and does have risk of worsening hypokalemia. We will give her another dose of 40 mEq potassium chloride this afternoon and recheck her electrolytes tomorrow morning. 3. Acute kidney injury superimposed on chronic kidney disease. No significant change in her kidney function and mild fluctuations are noted depending upon her congestive heart failure and volume status. 4. Anemia. Her anemia is stable at this point and we will continue to monitor. There is no indication for transfusion.
[2016-11-27] VITALS (7 sets, daily range): BP systolic 80–92; BP diastolic 49–55
--- NOTE | 2016-11-27 00:42 | IPN ---
DATE OF SERVICE: 11/26/2016 Mrs. Zo Redman was seen this morning, she was sitting in a chair in no acute distress at rest. She denies any chest pain or palpitations. She thinks her shortness of breath has been stable and her pedal edema has improved. There is no report of bleeding. There is no focal manifestation. She continues to be on intravenous (IV) dobutamine and continues IV furosemoide. She denies any nausea, vomiting, diarrhea, melena, or hematemesis. She has a cough, but no hemoptysis. PHYSICAL EXAMINATION: Patient is alert and oriented, in no acute distress at rest and her blood pressure earlier this morning was 92/60 with a pulse of 83, respirations 20 and her maximum temperature was 98 degrees Fahrenheit with an oxygen saturation of 97% on 3 liters nasal cannula. She has a negative fluid balance of 2.6 liters. Examination of the head, ears, eyes, nose and throat: Atraumatic. Neck is supple with extended jugular. The lungs reveal decreased breath sounds on the right lower lung. The heart examination revealed normal S1 and S2 without gallops. The point of maximum impulse (PMI) is slightly displaced inferiorly. There is no rub. Abdomen is soft and nontender. Extremities revealed +1 to +2 bilateral lower leg edema. Neurologic examination is negative for focal deficit. LABORATORIES: CBC done this morning, 11/26/2016 revealed a WBC of 5.1, hemoglobin 9.4, hematocrit 29.53, and platelets 188,000. BMP revealed a sodium of 142, potassium 3.6, chloride 97, CO2 38, BUN 34, creatinine 1.36, GFR 40, fasting glucose 98, calcium 8.4. Serum magnesium is 1.6. IMPRESSION: Mrs. Zo Redman seems to be stable from a cardiac point of view. She continues to have good diuresis. She stated that she thinks the intravenous (IV) furosemide and the IV dobutamine will be discontinued tomorrow, 11/27/2016. She will be reassessed tomorrow, Dr. Sheppard will be seeing her. When discharged, she will need an early appointment with Dr. Bradley and I will arrange it for her. Her hypomagnesemia is being addressed. REBECCA
[2016-11-27] MEDS: IPRATROPIUM 0.5MG/ALBUTEROL 2.5MG INH SOL UD 3ML (DUONEB)(J7620) INH SCH ×2 (01:05→07:35)
[2016-11-27] MEDS ORDERED: ACETAMINOPHEN TAB 650MG DOSE (2X325MG) PO ONE (02:45)
[2016-11-27] MEDS ORDERED: ACETAMINOPHEN 500 MG TAB PO PRN (02:45)
[2016-11-27] MEDS: FUROSEMIDE injection 250 MG in D5W 225 ML IV SCH (04:01)
[2016-11-27 06:01] LABS: MEAN CORPUSCULAR HEMOGLOBIN 30.2 pg (27.0-33.0); MEAN CORPUSCULAR HGB CONC 32.2 g/dl (32.0-36.5); MEAN CORPUSCULAR VOLUME 93.8 fl (80.0-96.0); RED CELL DISTRIBUTION WIDTH 16.7 % (11.5-14.5); WHITE BLOOD COUNT 5.9 K/mm3 (4.0-10.0)
[2016-11-27] MEDS: SODIUM CHLORIDE 0.9% INJ 10 ML SYR IV SCH ×2 (06:05→18:00)
[2016-11-27 06:30] LABS: CALCIUM LEVEL 8.1 MG/DL (8.8-10.2); CREATININE FOR GFR 1.49 MG/DL (0.55-1.02); POTASSIUM SERUM 3.8 MEQ/L (3.5-5.1)
--- NOTE | 2016-11-27 07:11 | IPN ---
DATE: 11/26/2016 Mrs. Redman is seen this morning on her bedside. She is sitting in the chair getting ready for her bath. She denies any nausea, vomiting, dyspnea or chest pain. She has been on IV Lasix drip and dobutamine drip. She did diurese reasonably well. On physical examination, temperature 97.2 degrees Fahrenheit, heart rate 82 per minute and respiratory rate 20 per minute. Blood pressure 92/52 mmHg and oxygen saturation 97% on 3 liters oxygen. Intake and output records from yesterday showed total intake 825 and output 3500 mL with a negative fluid balance of 2675. Head is atraumatic. Neck veins are difficult to be assessed sitting upright. Nose and throat are unremarkable. Pupils are equal and reactive to light and sclerae anicteric. Heart sounds are irregular. Lungs with diminished breath sounds at bases bilaterally. There is no wheezing. Abdomen is soft and nontender. Bowel sounds are normal. Extremities: Have 1+ edema on left leg and 2+ edema on right leg. She has no cyanosis or clubbing. Neurologically, she is awake, alert and oriented times three. Today's labs show WBC count 5.1, hemoglobin 9.4 and hematocrit 29.3. Sodium 142 and potassium 3.6. BUN 34 and creatinine 1.36. Magnesium level is 1.6 and calcium 8.4. PROBLEMS: 1. Acute on chronic congestive heart failure. The patient seems to be responding very well to IV Lasix and dobutamine drips. Will continue with the dobutamine for another 24 hours. I am cutting down her Lasix to 0.1 mg/kg/hr in view of excessive urine output yesterday. Will continue with oral fluid restriction and monitor intake and output. 2. Acute renal failure superimposed on chronic kidney disease. She has no significant change in her kidney function and we will continue to monitor on a daily basis. 3. Hypokalemia. Potassium level improved slightly with aggressive potassium supplement. She received a total of 100 mEq of oral potassium yesterday. Will increase her potassium supplement to 20 mEq three times a day and will recheck her electrolytes tomorrow morning. 4. Hypomagnesemia. This is related to diuresis. The patient is being given magnesium sulfate 1 gram. 5. Anemia. Her anemia is stable and does not need any intervention.
[2016-11-27] MEDS: ADVAIR HFA 115/21MCG INHALER INH SCH ×2 (07:35→20:05)
--- NOTE | 2016-11-27 08:37 | IPN ---
DATE: 11/27/2016 Mrs. Redman had a relatively good weekend. She is on very low-dose dobutamine infusion and managed to accomplish some diuresis, but this morning the diuretics were actually stopped because her blood pressure again was low, documented at 82/55. She is virtually asymptomatic from that perspective. She denies any dyspnea at rest, but gets easily short of breath with activity. Her peripheral edema has improved, but did not correct. Still there were no detected arrhythmias. Vital Signs: Blood pressure as above. Heart rate in mostly 70s and 80s, sinus rhythm. She is afebrile. Saturation is 100% on 3 liters of oxygen by nasal cannula. Fluid balance yesterday was about 800 mL negative. It was about 2.5 liters negative the day before. Documented weight is 62.8 kg, which is about 1.3 kg drop since two days ago. Jugular venous pulse (JVP) still is a little elevated. There is still prominent fluctuation with respiration. Lung exam revealed bilateral diminished breath sounds over at least 1/3 of the lung lawson, indicating likely ongoing pleural effusions. Heart exam regular rhythm. No gallop. Abdomen is soft, nontender. There is about 1+ edema. There is some redness to her left dorsum of the foot and left ankle. Neurologically, she is intact. Laboratory-robison, hemoglobin 9.1, hematocrit 28, platelet count 185,000. Basic metabolic panel: potassium 3.8, BUN 36 and creatinine 1.5, for a GFR 36, and glucose 111. ASSESSMENT/PLAN: Mrs. Redman is a 76-year-old female who has a history of chronic obstructive pulmonary disease (COPD) and paroxysmal atrial fibrillation. She also comes with recurrent episode of congestive heart failure. Based on echocardiogram done during this hospitalization, it is systolic in nature. Ejection fraction (EF) was estimated around 35%. There is a concomitant problem with hypoalbuminemia which likely contributes. There was fair amount of protein in her urine, but there are no monoclonal bands, and her Bence-Stein protein was negative. The followup urinalysis seems to indicate less protein, so I do not believe that she has nephrotic syndrome as such. As far as the management is concerned, it has proven to be very difficult, mostly because of underlying hypotension. At this point, I agree with holding Lasix, but once her blood pressure recovers, which I believe will happen today, I would restart it again. If the dobutamine was started, I think it makes sense to try to diurese the patient as much as possible. Simultaneously, we have encouraged nutritious foods and I am being told by nurse that she eats well. Unfortunately, because of low blood pressure, I do not believe she is a candidate for beta tao or ARBs. It has shown to be very challenging to treat this patient and we have not made as much progress as desired.
--- NOTE | 2016-11-27 08:39 | IPNPDOC ---
Text Note Date of Service The patient was seen on 11/27/16. NOTE Subjective: Patient is a 76 year old female CKD3, COPD (on 2L O2), Hx of Cor Pulmonale, Hx of Recurrent pleural effusions, CHF, HTN, Paroxysmal atrial fibrillation and Subclavian steal syndrome who presented to the ER with worsening SOB, PND and orthopnea for the last 2 days. She also noted increasing weight and lower extremity swelling. Patient was found to have decompensated systolic heart failure and admitted to the hospitalist service. She has received a dose of Lasix in the ER. Patient was noted to be hypotensive (SBP of 70-80s) on 11/19 afternoon. At that point she had diuresed >1000 cc. Her lasix was stopped, blood pressure medications were stopped and since she was bradycardic (50-60s) her digoxin was also stopped. She received 1 liter of fluids. Initially she reported some blurred vision and dizziness, but resolved with 1 liter of normal saline. Her blood pressure maintained in SBPs of 80. On 11/20 patient was seen and examined at the bedside. Again her SBP was in 70s and she received another 1 liter of NS. She remained asymptomatic after the NS, but her BP remained in the 80s. A bedside ultrasound was performed which revealed that she did not have any significant pericardial effusion, did not have a significant elevation of her jugular vein. She had what appeared to be a reduced contractility of the heart. Dr. Sheppard was called and case discussed; will be on consult. Patient seen and examined at bedside today. Continues to feel better, although she states was feeling better yesterday. Overnight events significant for hypotension, diuretics held. Still no significant ambulation/activity. Objective: Vitals (See below) General: Sitting in chair comfortably, no acute distress, comfortable, AAOx3 HEENT: NC/AT CVS: irregular Lungs: Fair air entry b/l, left rhonchi Abdomen: Soft, ND, NT, +BSx4 Extremities: 1+ pitting edema bilaterally, improving Assessment and plan: 1. Hypotension - diuretics held - currently receiving continuous infusion dobutamine - nephrology consultation appreciated - Initially had some dizziness and visual problems; resolved with IV fluid hydration - echo completed - reduced EF from previous echo several months ago - resumed furosemide and Digoxin, hold Valsartan - Dr. Sheppard (Cardiology) consulted - assistance appreciated - measurements possibly inaccurate secondary to underlying vascular disease - vascular surgery consultation appreciated 2. Dyspnea - likely 2/2 fluid overload - Presented with worsening SOB, LE edema and JVD - Clinically has improvement in breathing; LE edema persists but is improving - ECHO 08/2016: normal systolic and diastolic function ; AV sclerosis without stenosis / AR, mild TR and mild pulmonary HTN, trace to small pericardial effusion - repeat echo with impaired systolic function with ef 35% - CXR 11/18: cardiomegaly, interstitial edema, bilateral pleural effusions (R>L) - Keep on strict ins/outs, daily weights, head of bed elevation - dobutamine continuous infusion - excellent output 3. Paroxysmal atrial fibrillation - resumed digoxin - c/w anticoagulation with Eliquis 4. COPD - uses home oxygen at 2 liters - c/w Advair - c/w Duoneb PRN 5. CKD3 - dobutamine infusion - follow BMP - nephrology consultation appreciated 6. HTN - BP well controlled - Hold Valsartan 7. Hypokalemia/hypomagnesemia - replete and follow 8. Proteinuria - workup thus far unrevealing - nephrology consultation appreciated 9. Generalized deconditioning - pending PT eval/treat 10. DVT prophylaxis - c/w Eliquis VS,Fishbone, I+O VS, Fishbone, I+O Laboratory Tests 11/27/16 05:35 Red Blood Count 3.03 L, Mean Corpuscular Volume 93.8, Mean Corpuscular Hemoglobin 30.2, Mean Corpuscular Hemoglobin Concent 32.2, Red Cell Distribution Width 16.7 H, Calcium Level 8.1 L Vital Signs Date Time Temp Pulse Resp B/P (MAP) Pulse Ox O2 Delivery O2 Flow Rate FiO2 11/27/16 08:00 96.4 79 18 86/49 (61) 96 Nasal Cannula 3.0 I&O- Last 24 Hours up to 6 AM 11/27/16 06:00 Intake Total 749.0 ml Output Total 1700 ml Balance -951.0 ml SOULEYMANE TYLER MD Nov 27, 2016 08:39
[2016-11-27] MEDS: IRON POLYSAC (NIFEREX) 150 MG CAP PO SCH ×2 (10:30→20:55)
[2016-11-27] MEDS: APIXABAN 2.5 MG TAB (ELIQUIS) PO SCH ×2 (10:30→20:55)
[2016-11-27] MEDS: POTASSIUM CHLORIDE 10 MEQ SR TABLET PO SCH ×3 (10:30→20:55)
[2016-11-27] MEDS: DIGOXIN 0.0625MG PER 1/2TABLET PO SCH (10:30)
[2016-11-27] MEDS: MIDODRINE 5 MG TAB PO SCH ×2 (12:00→16:00)
--- NOTE | 2016-11-27 13:14 | IPN ---
DATE OF VISIT: 11/27/2016 Mrs. Redman is seen this morning on her bedside. She is sitting in the chair with her legs elevated. I was called at 5:00 a.m. by nursing staff to report low blood pressure in 70s and 80s. Her IV Lasix drip was stopped at that time. The patient feels somewhat lightheaded but denies any difficulty ambulating. She denies any dyspnea or chest pain. She has no nausea or vomiting. PHYSICAL EXAMINATION Temperature 96.4 degrees Fahrenheit, heart rate 80 per minute and respiratory rate 18 per minute. Blood pressure 86/49 mmHg and oxygen saturation 96% on 3 liters oxygen. Head is atraumatic. Neck is supple and jugular venous distention (JVD) is mildly elevated. Lungs have diminished breath sounds bilaterally but no wheezing or rales. Heart sounds are regular. Abdomen is soft and nontender and without a palpable organomegaly. Extremities have no cyanosis or clubbing. Her lower extremity edema is essentially unchanged. Intake and output records from yesterday showed total intake 1200 and output 2000. Her weight is down to 62.8 kg. Today's labs show WBC count 5.9, hemoglobin 9.1 and hematocrit 28.4. Platelets 185. Sodium 141 and potassium 3.8. BUN 36 and creatinine 1.49. PROBLEMS: 1. Acute on chronic congestive heart failure. Volume status still somewhat decompensated, however, significantly improved. IV Lasix drip has already been stopped due to worsening hypotension. We will resume oral diuretic once her blood pressure improves. 2. Acute kidney injury superimposed on chronic kidney disease. Slight worsening of kidney function is related to negative fluid balance. At present no intervention is needed and we will recheck her renal profile. 3. Hypotension. This is a chronic issue. She is not on any medication and remains on IV dobutamine drip. I am going to start her on midodrine 5 mg three times a day. We will try to wean her off dobutamine drip later in the afternoon today after she gets at least a couple of doses of midodrine. We will certainly not diurese her anymore until her blood pressure improves. 4. Anemia. Her anemia is essentially unchanged and we will continue to monitor. At this time we were not giving her any new medication due to hypotension and we will watch closely. She can probably use Aranesp but we will wait until her blood pressure improves. DISPOSITION: At this point the patient is not ready for discharge due to worsening hypotension.
[2016-11-28] MEDS: IPRATROPIUM 0.5MG/ALBUTEROL 2.5MG INH SOL UD 3ML (DUONEB)(J7620) INH SCH ×3 (01:28→15:12)
[2016-11-28 03:54] VITALS: BP 82/53
[2016-11-28] MEDS: SODIUM CHLORIDE 0.9% INJ 10 ML SYR IV SCH ×2 (05:24→18:13)
[2016-11-28 06:40] LABS: MEAN CORPUSCULAR HEMOGLOBIN 29.9 pg (27.0-33.0); MEAN CORPUSCULAR HGB CONC 31.5 g/dl (32.0-36.5); MEAN CORPUSCULAR VOLUME 94.8 fl (80.0-96.0); RED CELL DISTRIBUTION WIDTH 16.9 % (11.5-14.5); WHITE BLOOD COUNT 7.8 K/mm3 (4.0-10.0)
[2016-11-28 07:02] LABS: CALCIUM LEVEL 8.3 MG/DL (8.8-10.2); CREATININE FOR GFR 1.38 MG/DL (0.55-1.02); GLOMERULAR FILTRATION RATE 39.4 (>39); POTASSIUM SERUM 4.4 MEQ/L (3.5-5.1)
[2016-11-28] MEDS ORDERED: FUROSEMIDE 100 MG/10 ML VIAL (J1940) IV ONE (08:00)
--- NOTE | 2016-11-28 08:00 | IPN ---
DATE: 11/28/2016 Mrs. Redman has not been doing well. Yesterday evening, her dobutamine was discontinued. She said that she felt relatively well during the day, but that at night she developed paroxysmal nocturnal dyspnea (PND) and struggled with breathing all night and still complains about shortness of breath at rest this morning. Denies any chest pain or palpitations. She maintained sinus rhythm. Blood pressure this morning is 82/53. Heart rate has been around 80. She is afebrile. Saturation is 97% on 3 liters of oxygen by nasal cannula. Fluid balance yesterday was about 650 positive. Weight is 63.1 kg. She is alert and oriented and appropriate. Her jugular venous pulse (JVP) appears just slightly elevated. Lungs though reveal diminished breath sounds on both sides about 1/3 maybe up to 1/2. I do not appreciate any crackles above. Heart Exam: Reveals a regular rhythm. No gallop is noted. Abdomen is soft. There is about 2 to 3+ edema to her knees. Laboratory-robison, basic metabolic panel reveals potassium 4.4, BUN 36 and creatinine 1.4 for a GFR of 40 and calcium 8.3. Her CBC reveals a hemoglobin of 9.2, hematocrit 29 and platelet count 206,000. Digoxin level is 1.9 from 11/20/2016, we have not checked the level since. ASSESSMENT/PLAN: Mrs. Redman is a complicated patient. She is a 76-year-old female who has longstanding recurrent bilateral pleural effusions and peripheral edema and has now newly diagnosed LV systolic dysfunction. The attempts to diurese her have been really hampered by her hypotension. I am somewhat concerned that in spite of use of dobutamine we have not been able to accomplish any meaningful diuresis, even though her fluid balance was negative for a couple days. There was immediate deterioration after dobutamine was stopped and it is not completely clear that these two events are actually related. I have to say that from my perspective the patient does not behave like somebody who would have systolic congestive heart failure only. I think that there is likely concomitant diagnosis that we are still missing. So far, although blood work looking for rheumatology conditions or systemic inflammatory diseases though have been negative. The only significant abnormality is very high levels of free kappa and lambda light chains, which I am not sure what this actually means. I think that at this point I am going to give her IV Lasix in spite of her blood pressure being low. Simultaneously, I would entertain the option of thoracentess, not only for therapeutic but also diagnostic purposes. I will talk to Dr. Chowdhury about this option. REBECCA
[2016-11-28 08:02] VITALS: BP 86/48
[2016-11-28] MEDS: ADVAIR HFA 115/21MCG INHALER INH SCH ×2 (08:25→20:26)
[2016-11-28] MEDS: IRON POLYSAC (NIFEREX) 150 MG CAP PO SCH ×2 (09:06→22:05)
[2016-11-28] MEDS: MIDODRINE 5 MG TAB PO SCH ×3 (09:06→15:10)
[2016-11-28] MEDS: DIGOXIN 0.0625MG PER 1/2TABLET PO SCH (09:06)
[2016-11-28] MEDS: SPIRONOLACTONE 25 MG TAB PO SCH ×2 (10:55→18:12)
[2016-11-28] MEDS: FUROSEMIDE 100 MG/10 ML VIAL (J1940) IV SCH ×3 (11:26→22:05)
[2016-11-28 11:59] VITALS: BP 93/51
[2016-11-28] MEDS ORDERED: ONDANSETRON 4MG/2ML VIAL (J2405) IV SCH (14:00)
[2016-11-28] MEDS: ONDANSETRON 4MG/2ML VIAL (J2405) IV PRN ×2 (14:24→23:35)
--- NOTE | 2016-11-28 15:24 | IPNPDOC ---
Text Note Date of Service The patient was seen on 11/28/16. NOTE Subjective: Patient is a 76 year old female CKD3, COPD (on 2L O2), Hx of Cor Pulmonale, Hx of Recurrent pleural effusions, CHF, HTN, Paroxysmal atrial fibrillation and Subclavian steal syndrome who presented to the ER with worsening SOB, PND and orthopnea for the last 2 days. She also noted increasing weight and lower extremity swelling. Patient was found to have decompensated systolic heart failure and admitted to the hospitalist service. She has received a dose of Lasix in the ER. Patient was noted to be hypotensive (SBP of 70-80s) on 11/19 afternoon. At that point she had diuresed >1000 cc. Her lasix was stopped, blood pressure medications were stopped and since she was bradycardic (50-60s) her digoxin was also stopped. She received 1 liter of fluids. Initially she reported some blurred vision and dizziness, but resolved with 1 liter of normal saline. Her blood pressure maintained in SBPs of 80. On 11/20 patient was seen and examined at the bedside. Again her SBP was in 70s and she received another 1 liter of NS. She remained asymptomatic after the NS, but her BP remained in the 80s. A bedside ultrasound was performed which revealed that she did not have any significant pericardial effusion, did not have a significant elevation of her jugular vein. She had what appeared to be a reduced contractility of the heart. Dr. Sheppard was called and case discussed; will be on consult. Patient seen and examined at bedside today. She noted that this morning she was experiencing worsening of her shortness of breath. She noted some dizziness. No chest pain or palpitations were noted. Objective: Vitals (See below) General: Sitting in chair comfortably, no acute distress, comfortable, AAOx3 HEENT: NC/AT CVS: irregular Lungs: Fair air entry b/l, left rhonchi Abdomen: Soft, ND, NT, +BSx4 Extremities: 1+ pitting edema bilaterally, improving Assessment and plan: 1. Hypotension - Initially had some dizziness and visual problems; resolved with IV fluid hydration - ECHO completed - reduced EF from previous echo several months ago - c/w Digoxin, - Dr. Sheppard (Cardiology) and Dr. Diego (Nephrology) consulted - assistance appreciated - c/w Midodrine; s/p Dobutamine Drip 2. Dyspnea - likely 2/2 fluid overload; possibly 2/2 pleural effusions - Presented with worsening SOB, LE edema and JVD - Clinically has improvement in breathing; LE edema persists but is improving - ECHO 08/2016: normal systolic and diastolic function ; AV sclerosis without stenosis / AR, mild TR and mild pulmonary HTN, trace to small pericardial effusion - ECHO 11/2016: Impaired systolic function with EF 35% - CXR 11/18: cardiomegaly, interstitial edema, bilateral pleural effusions (R>L) - Keep on strict ins/outs, daily weights, head of bed elevation - s/p Dobutamine drip - Discussed with interventional radiology; will go for IR guided thoracentesis on 11/30 (after holding Eliquis for 2 days) 3. Paroxysmal atrial fibrillation - resumed digoxin - anticoagulation with Eliquis on hold (re: thoracentesis) 4. COPD - uses home oxygen at 2 liters - c/w Advair - c/w Duoneb PRN 5. CKD3 - follow BMP - Dr. Diego (Nephrology) consulted - assistance appreciated 6. HTN - BP well controlled - s/p Valsartan 7. s/p Hypokalemia/ Hypomagnesemia 8. Proteinuria - workup thus far unrevealing - Dr. Diego (Nephrology) consulted - assistance appreciated 9. Generalized deconditioning - c/w PT 10. DVT prophylaxis - Hold Eliquis - Will start SCDs VS,Fishbone, I+O VS, Fishbone, I+O Laboratory Tests 11/28/16 06:22 Red Blood Count 3.08 L, Mean Corpuscular Volume 94.8, Mean Corpuscular Hemoglobin 29.9, Mean Corpuscular Hemoglobin Concent 31.5 L, Red Cell Distribution Width 16.9 H, Calcium Level 8.3 L Vital Signs Date Time Temp Pulse Resp B/P (MAP) Pulse Ox O2 Delivery O2 Flow Rate FiO2 11/28/16 11:59 97.2 60 20 93/51 (65) 97 Nasal Cannula 3.0 I&O- Last 24 Hours up to 6 AM 11/28/16 05:59 Intake Total 1436 ml Output Total 450 ml Balance 986 ml JACQUE ANTHONY MD Nov 28, 2016 15:24
[2016-11-28 16:00] VITALS: BP 110/59
[2016-11-28] MEDS ORDERED: PROMETHAZINE INJ 25 MG/ML VIAL (J2550) IV ONE (18:00)
[2016-11-28] MEDS: IPRATROPIUM 0.5MG/ALBUTEROL 2.5MG INH SOL UD 3ML (DUONEB)(J7620) INH PRN (19:19)
[2016-11-28 20:00] VITALS: BP 98/55
[2016-11-29] VITALS (8 sets, daily range): BP systolic 81–99; BP diastolic 42–58
[2016-11-29 00:06] LABS: COMPLEMENT TOTAL (CH50) > 65 U/mL (42-60)
[2016-11-29] MEDS: IPRATROPIUM 0.5MG/ALBUTEROL 2.5MG INH SOL UD 3ML (DUONEB)(J7620) INH SCH ×4 (01:20→23:52)
[2016-11-29] MEDS: FUROSEMIDE 100 MG/10 ML VIAL (J1940) IV SCH ×2 (05:00→05:26)
[2016-11-29] MEDS: SODIUM CHLORIDE 0.9% INJ 10 ML SYR IV SCH ×2 (05:26→16:33)
[2016-11-29 05:39] LABS: MEAN CORPUSCULAR HEMOGLOBIN 30.1 pg (27.0-33.0); MEAN CORPUSCULAR HGB CONC 32.3 g/dl (32.0-36.5); MEAN CORPUSCULAR VOLUME 93.2 fl (80.0-96.0); RED CELL DISTRIBUTION WIDTH 16.4 % (11.5-14.5); WHITE BLOOD COUNT 6.3 K/mm3 (4.0-10.0)
[2016-11-29 06:12] LABS: CALCIUM LEVEL 8.1 MG/DL (8.8-10.2); CREATININE FOR GFR 1.82 MG/DL (0.55-1.02); GLOMERULAR FILTRATION RATE 28.6 (>39); POTASSIUM SERUM 4.2 MEQ/L (3.5-5.1)
[2016-11-29] MEDS: ADVAIR HFA 115/21MCG INHALER INH SCH ×2 (07:10→19:38)
[2016-11-29] MEDS: MIDODRINE 5 MG TAB PO SCH ×3 (07:41→16:33)
--- NOTE | 2016-11-29 08:38 | IPN ---
DATE: 11/29/2016 Mrs. Redman is not feeling well. She still has shortness of his shortness of breath and had some paroxysmal nocturnal dyspnea (PND) last night and this morning feels really tired. Blood pressure remains low, mostly in the 80s and 90s systolic. She is afebrile. Saturation is in high 90s on 3 liters of oxygen by nasal cannula. Heart rate is in 60s. She remains in sinus rhythm, had several runs of nonsustained VT. Fluid balance yesterday was documented as slightly negative, weight is 62.9 kg. She is alert and oriented and appropriate. Appears chronically ill, not acutely ill. JVP again I do not see gross elevation over the clavicle in the sitting position. Lungs reveal diminished breath sounds over lower parts of her lungs. Heart exam regular rhythm. I do not appreciate any gallop or rub. Abdomen is soft, nontender. There is no shifting dullness. The extremities still have about 2+ edema. Laboratory robison, CBC hemoglobin 9.6, hematocrit 29, platelet count 222,000. Basic metabolic panel potassium 4.2, BUN 44, creatinine 1.8, glucose 100. ASSESSMENT/PLAN: Mrs. Redman is a 76-year-old female who unfortunately has not been doing well. She has congestive heart failure that is now systolic in nature, but there is concomitant hypoalbuminemia and renal insufficiency and her blood pressure has been running low the attempts for diuresis so far have not been overly successful. Her blood pressure is too low for her to receive some additional medications. So unfortunately, neither SOL inhibitors nor beta-blockers could be tolerated. The plan at this point is to consider thoracentesis. Her Eliquis was stopped yesterday and the procedure is planned for tomorrow. I am hoping that it will bring some subjective relief, but unfortunately her overall prognosis is not favorable. I still am concerned that we are missing some secondary diagnosis as she certainly does not behave how I would expect people who have just pure heart failure and the hypoalbuminemia and proteinuria is not explained by this diagnosis.
[2016-11-29] MEDS: IRON POLYSAC (NIFEREX) 150 MG CAP PO SCH ×2 (08:42→21:08)
[2016-11-29] MEDS: DIGOXIN 0.0625MG PER 1/2TABLET PO SCH (08:42)
[2016-11-29 09:28] LABS: MAGNESIUM LEVEL 2.1 MG/DL (1.8-2.4)
[2016-11-29] MEDS ORDERED: CEFTAROLINE FOSAMIL 600 MG in D5W MINI-BAG PLUS 50 ML IV SCH (10:00)
[2016-11-29] MEDS: CEFTAROLINE FOSAMIL 300 MG in D5W 50 ML IV SCH ×2 (11:44→23:47)
[2016-11-29] MEDS: ONDANSETRON 4MG/2ML VIAL (J2405) IV PRN (12:58)
--- NOTE | 2016-11-29 13:51 | IPNPDOC ---
Text Note Date of Service The patient was seen on 11/29/16. NOTE Subjective: Patient is a 76 year old female CKD3, COPD (on 2L O2), Hx of Cor Pulmonale, Hx of Recurrent pleural effusions, CHF, HTN, Paroxysmal atrial fibrillation and Subclavian steal syndrome who presented to the ER with worsening SOB, PND and orthopnea for the last 2 days. She also noted increasing weight and lower extremity swelling. Patient was found to have decompensated systolic heart failure and admitted to the hospitalist service. She has received a dose of Lasix in the ER. Patient was noted to be hypotensive (SBP of 70-80s) on 11/19 afternoon. At that point she had diuresed >1000 cc. Her lasix was stopped, blood pressure medications were stopped and since she was bradycardic (50-60s) her digoxin was also stopped. She received 1 liter of fluids. Initially she reported some blurred vision and dizziness, but resolved with 1 liter of normal saline. Her blood pressure maintained in SBPs of 80. On 11/20 patient was seen and examined at the bedside. Again her SBP was in 70s and she received another 1 liter of NS. She remained asymptomatic after the NS, but her BP remained in the 80s. A bedside ultrasound was performed which revealed that she did not have any significant pericardial effusion, did not have a significant elevation of her jugular vein. She had what appeared to be a reduced contractility of the heart. Dr. Sheppard was called and case discussed; will be on consult. Patient seen and examined at bedside today. She notes that she does not have any specific complaints today, although she notes that she doesn't feel well overall. Objective: Vitals (See below) General: Sitting in chair comfortably, no acute distress, comfortable, AAOx3 HEENT: NC/AT CVS: irregular Lungs: Fair air entry b/l, course lung sounds bilaterally Abdomen: Soft, ND, NT, +BSx4 Extremities: 1+ pitting edema bilaterally, - calf tenderness, R lateral foot with erythema / warmth / tenderness Assessment and plan: 1. Hypotension; etiology unclear - Initially had some dizziness and visual problems; that has resolved with IV fluid hydration - ECHO completed - reduced EF from previous echo several months ago - c/w Digoxin - Dr. Sheppard (Cardiology) and Dr. Diego (Nephrology) consulted - assistance appreciated - c/w Midodrine, has been increased to maximum doses; s/p Dobutamine Drip 2. Dyspnea - likely 2/2 fluid overload; possibly 2/2 pleural effusions - Presented with worsening SOB, LE edema and JVD - Clinically has improvement in breathing; LE edema persists but is improving - ECHO 08/2016: normal systolic and diastolic function ; AV sclerosis without stenosis / AR, mild TR and mild pulmonary HTN, trace to small pericardial effusion - ECHO 11/2016: Impaired systolic function with EF 35% - CXR 11/18: cardiomegaly, interstitial edema, bilateral pleural effusions (R>L) - Keep on strict ins/outs, daily weights, head of bed elevation - Will evaluate pleural effusions / infiltrates with repeat Portable CXR - s/p Dobutamine drip - Discussed with interventional radiology; will go for IR guided thoracentesis tomorrow (11/30, after holding Eliquis for 2 days) 3. Paroxysmal atrial fibrillation - c/w digoxin - Anticoagulation with Eliquis on hold (re: thoracentesis) 4. COPD - uses home oxygen at 2 liters - c/w Advair - c/w Duoneb PRN 5. CKD3 - Elevation in Creatinine this morning - Will hold diuretics at this point - Dr. Diego (Nephrology) consulted - assistance appreciated 6. s/p HTN - BP has been hypotensive - s/p Valsartan 7. s/p Hypokalemia/ Hypomagnesemia 8. Proteinuria - workup thus far unrevealing - Dr. Diego (Nephrology) consulted - assistance appreciated 9. Generalized deconditioning - c/w PT 10. DVT prophylaxis - Hold Eliquis - c/w SCDs VS,Fishbone, I+O VS, Fishbone, I+O Laboratory Tests 11/29/16 05:19 Red Blood Count 3.17 L, Mean Corpuscular Volume 93.2, Mean Corpuscular Hemoglobin 30.1, Mean Corpuscular Hemoglobin Concent 32.3, Red Cell Distribution Width 16.4 H, Calcium Level 8.1 L Vital Signs Date Time Temp Pulse Resp B/P (MAP) Pulse Ox O2 Delivery O2 Flow Rate FiO2 11/29/16 12:00 97.3 73 19 88/54 (65) 99 Nasal Cannula 3.0 I&O- Last 24 Hours up to 6 AM 11/29/16 06:00 Intake Total 360 ml Output Total 950 ml Balance -590 ml JACQUE ANTHONY MD Nov 29, 2016 13:51
--- NOTE | 2016-11-29 15:01 | REP ---
Portable chest x-ray: Semi-erect AP view. History: Evaluate effusion. Possible infiltrate. Comparison chest x-ray November 18, 2016. Findings: A right-sided PICC line is seen terminating in the expected location of the superior vena cava. There are surgical clips in the right axillary and right neck and left axillary soft tissues as before. EKG electrodes are seen. There is evidence of right pleural effusion. This appears more prominent than on the November 18, 2016 study. There are some increased markings behind the heart in the left base and the left diaphragm is poorly seen. Question left effusion. Impression: Findings compatible with bilateral pleural effusions, right greater than left. Right has increased. Signed by Ney Mathur MD 11/29/2016 03:59 P
--- NOTE | 2016-11-29 15:28 | IPN ---
DATE OF VISIT: 11/28/2016 Mrs. Redman is seen this morning on her bedside. She is sitting in the chair and reports being short of breath through the night. She was given Lasix 80 mg intravenously admissions clerk. Yesterday we had stopped her IV Lasix drip due to hypotension. Dobutamine drip was also stopped yesterday as she has been on dobutamine for 3 days. The patient has no fever or chills. PHYSICAL EXAMINATION: Temperature 97.2 degrees Fahrenheit, heart rate 75 per minute and respiratory rate 20 per minute. Blood pressure 86/48 mmHg and oxygen saturation 98% on 3 liters oxygen. Intake and output records from yesterday showed total intake 1300 and output 650. She weighed 63.1 kg today. Her head is atraumatic. Neck veins are moderately distended. She has no oral thrush or ulcers. Pupils equal and reactive to light and sclera is anicteric. Heart sounds are regular with systolic murmur grade 2/6. Lungs with diminished breath sounds at lower one-third bilaterally. She has a few scattered rales. Abdomen is soft and nontender. Bowel sounds are normal. Extremities have no cyanosis or clubbing. Lower extremity edema is slightly increased compared to yesterday. Today's labs show WBC count 7.8, hemoglobin 9.2, hematocrit 29.2. Platelets 206. Sodium 141 and potassium 4.4. BUN 36 and creatinine 1.38. Calcium level is 8.3. PROBLEMS: 1. Congestive heart failure. The patient has decompensated congestive heart failure. We have treated her with IV Lasix drip and dobutamine drip with some negative fluid balance. She is short of breath once again and probably this is related to a combination of congestive heart failure and pleural effusions. She was hypotensive yesterday due to which her Lasix drip was stopped. We will increase the midodrine dose that was started yesterday and go up to 10 mg three times a day. Once her blood pressure improves then she might tolerate diuretic well. Once her blood pressure is better, then we can increase her Lasix to 60 mg every 6 hours and try to diurese her more aggressively. We will also add spironolactone 25 mg twice a day in order to prevent hypokalemia. 2. Acute kidney injury superimposed on chronic kidney disease. Her kidney function remains essentially unchanged with only slight fluctuations depending upon her volume status. Electrolytes are within normal range. 3. Anemia. Her anemia is also unchanged and we will continue to monitor it closely. There is no indication for transfusion at this point. 4. Hypotension. This remained limiting factor for diuresis. She did not respond very well to dobutamine drip. I am going to increase her midodrine dose to 10 mg three times a day and see how she responds.
[2016-11-30] VITALS (10 sets, daily range): BP systolic 77–162; BP diastolic 50–100
[2016-11-30] MEDS: SODIUM CHLORIDE 0.9% INJ 10 ML SYR IV SCH ×2 (05:20→16:41)
[2016-11-30 05:43] LABS: MEAN CORPUSCULAR HEMOGLOBIN 29.9 pg (27.0-33.0); MEAN CORPUSCULAR HGB CONC 32.1 g/dl (32.0-36.5); RED CELL DISTRIBUTION WIDTH 16.6 % (11.5-14.5); WHITE BLOOD COUNT 9.4 K/mm3 (4.0-10.0)
[2016-11-30 05:46] LABS: CREATININE FOR GFR 2.32 MG/DL (0.55-1.02); GLOMERULAR FILTRATION RATE 21.6 (>39); POTASSIUM SERUM 4.6 MEQ/L (3.5-5.1)
[2016-11-30] MEDS ORDERED: COSYNTROPIN 0.25 MG/ML VIAL (J0835) IV ONE (06:00)
[2016-11-30] MEDS: ADVAIR HFA 115/21MCG INHALER INH SCH ×2 (07:46→20:18)
[2016-11-30] MEDS: IPRATROPIUM 0.5MG/ALBUTEROL 2.5MG INH SOL UD 3ML (DUONEB)(J7620) INH SCH ×3 (07:47→23:36)
[2016-11-30] MEDS: DIGOXIN 0.0625MG PER 1/2TABLET PO SCH (08:42)
[2016-11-30] MEDS: IRON POLYSAC (NIFEREX) 150 MG CAP PO SCH ×2 (08:43→20:17)
[2016-11-30] MEDS: MIDODRINE 5 MG TAB PO SCH ×3 (08:43→16:40)
[2016-11-30] MEDS ORDERED: LIDOCAINE 1% MDV 20ML VIAL As Ordered ONE (11:17)
[2016-11-30] MEDS: CEFTAROLINE FOSAMIL 300 MG in D5W 50 ML IV SCH (12:06)
--- NOTE | 2016-11-30 12:36 | IPNPDOC ---
Text Note Date of Service The patient was seen on 11/30/16. NOTE Subjective: Patient is a 76 year old female CKD3, COPD (on 2L O2), Hx of Cor Pulmonale, Hx of Recurrent pleural effusions, CHF, HTN, Paroxysmal atrial fibrillation and Subclavian steal syndrome who presented to the ER with worsening SOB, PND and orthopnea for the last 2 days. She also noted increasing weight and lower extremity swelling. Patient was found to have decompensated systolic heart failure and admitted to the hospitalist service. She has received a dose of Lasix in the ER. Patient was noted to be hypotensive (SBP of 70-80s) on 11/19 afternoon. At that point she had diuresed >1000 cc. Her lasix was stopped, blood pressure medications were stopped and since she was bradycardic (50-60s) her digoxin was also stopped. She received 1 liter of fluids. Initially she reported some blurred vision and dizziness, but resolved with 1 liter of normal saline. Her blood pressure maintained in SBPs of 80. On 11/20 patient was seen and examined at the bedside. Again her SBP was in 70s and she received another 1 liter of NS. She remained asymptomatic after the NS, but her BP remained in the 80s. A bedside ultrasound was performed which revealed that she did not have any significant pericardial effusion, did not have a significant elevation of her jugular vein. She had what appeared to be a reduced contractility of the heart. Dr. Sheppard was called and case discussed; will be on consult. Patient seen and examined at bedside today. She reports that her breathing isn' t quite at baseline. Still notes some LE edema. No chest pain or palpitations noted. No light-headedness. Objective: Vitals (See below) General: Sitting in chair comfortably, no acute distress, comfortable, AAOx3 HEENT: NC/AT CVS: irregular Lungs: Fair air entry b/l, course lung sounds bilaterally Abdomen: Soft, ND, NT, +BSx4 Extremities: 1+ pitting edema bilaterally, - calf tenderness, R lateral foot with erythema / warmth / tenderness Assessment and plan: 1. Hypotension; etiology unclear - Initially had some dizziness and visual problems; that has resolved with IV fluid hydration - Normal response to Cosyntropin stimulation test - ECHO completed - reduced EF from previous echo several months ago - c/w Digoxin - Dr. Sheppard (Cardiology) and Dr. Diego (Nephrology) consulted - assistance appreciated - c/w Midodrine, s/p Dobutamine Drip 2. Dyspnea - likely 2/2 fluid overload; possibly 2/2 pleural effusions - Presented with worsening SOB, LE edema and JVD - Clinically has improvement in breathing; LE edema persists but is improving - ECHO 08/2016: normal systolic and diastolic function ; AV sclerosis without stenosis / AR, mild TR and mild pulmonary HTN, trace to small pericardial effusion - ECHO 11/2016: Impaired systolic function with EF 35% - CXR 11/29: bilateral pleural effusions, R>L - R increased - Keep on strict ins/outs, daily weights, head of bed elevation - s/p Dobutamine drip - IR guided thoracentesis today; will send fluid for analysis and cytology 3. Paroxysmal atrial fibrillation - c/w digoxin - Anticoagulation with Eliquis on hold (re: thoracentesis) - Will restart anticoagulation tomorrow (12/01) 4. COPD - uses home oxygen at 2 liters - c/w Advair - c/w Duoneb PRN 5. CKD3 - Elevation in Creatinine this morning; continue to hold diuretics at this point - Dr. Diego (Nephrology) consulted - assistance appreciated 6. s/p HTN - BP has been hypotensive - s/p Valsartan 7. s/p Hypokalemia/ Hypomagnesemia 8. Proteinuria - workup thus far unrevealing - Dr. Diego (Nephrology) consulted - assistance appreciated 9. Generalized deconditioning - c/w PT 10. DVT prophylaxis - Hold Eliquis - c/w SCDs VS,Fishbone, I+O VS, Fishbone, I+O Laboratory Tests 11/30/16 05:11 Red Blood Count 3.27 L, Mean Corpuscular Volume 93.0, Mean Corpuscular Hemoglobin 29.9, Mean Corpuscular Hemoglobin Concent 32.1, Red Cell Distribution Width 16.6 H, Calcium Level 8.0 L Vital Signs Date Time Temp Pulse Resp B/P (MAP) Pulse Ox O2 Delivery O2 Flow Rate FiO2 11/30/16 08:42 72 11/30/16 08:00 97.0 21 101/53 (69) 95 Nasal Cannula 3.0 I&O- Last 24 Hours up to 6 AM 11/30/16 05:59 Intake Total 530 ml Output Total 450 ml Balance 80 ml JACQUE ANTHONY MD Nov 30, 2016 12:36
--- NOTE | 2016-11-30 14:11 | REP ---
CHEST, TWO VIEWS: Two views of the chest are performed following right thoracentesis. There is no pneumothorax. There is a decreased amount of right pleural fluid with mild to moderate pleural fluid remaining. There is bibasilar infiltrate/atelectasis. There is cardiomegaly. There is calcification of the thoracic aorta. Right arm PICC line is again noted. IMPRESSION: Diminished right pleural fluid. Patient had right thoracentesis. No pneumothorax. Signed by Ian Camacho MD 11/30/2016 05:05 P
[2016-11-30 14:19] LABS: RBC PLEURAL FLUID 64 (<10mm3 cells/uL); TNC PLEURAL FLUID 420 cells/uL (0-20)
[2016-11-30 14:20] LABS: BF DIFF IF INDICATED? YES (NO)
[2016-11-30 14:40] LABS: CC BF DIFF EXAM CYTOCENTRIFUGE
[2016-11-30 14:42] LABS: LDH, BODY FLUID 111 U/L (NOT ESTABLISHED); TOTAL PROTEIN, BODY FLUID 2.2 G/DL (NOT ESTABLISHED)
--- NOTE | 2016-11-30 16:05 | REP ---
RIGHT THORACENTESIS: The procedure was performed by CATALINA Hernandez under the direct supervision of Dr. Camacho. The procedure along with its risks, benefits, and complications were discussed with the patient prior to the procedure. Informed consent was obtained both verbally and written. The patient was identified in the ultrasound suite and placed in an upright seated position. The right lower lobe of the lung was interrogated with ultrasound. An appropriate site was chosen for needle entry and this area was marked, prepped, and draped in the usual sterile fashion. A procedural "time-out" was performed to ensure that the correct patient, site and procedure were being performed. Local infiltrative anesthesia was achieved using 1% lidocaine. A 19-gauge centesis catheter was advanced through the ribs and into the pleural space until serous fluid was aspirated. The needle was removed and the catheter was advanced. Approximately 800 mL of red fluid was aspirated. The catheter was then removed. Hemostasis was achieved and a soft dressing was applied to the entry site. The patient tolerated the procedure well and had no immediate complications. She was discharged back to her floor. Reviewed by CATALINA Roach 11/30/2016 04:14 PEdited and Signed by Ian Camacho MD 11/30/2016 04:59 P
[2016-11-30] MEDS: ONDANSETRON 4MG/2ML VIAL (J2405) IV PRN (18:24)
--- NOTE | 2016-11-30 19:48 | ECGEPIP ---
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
--- NOTE | 2016-11-30 22:47 | IPN ---
DATE: 11/29/2016 Mrs. Redman is seen this morning on her bedside. She is sitting in the recliner chair. She still feels weak and short of breath. She did diurese only slightly negative fluid balance yesterday. Her blood pressure remains low despite high dose of midodrine. She has no fever or chills but does have some cough. PHYSICAL EXAMINATION: Temperature 97.6 degrees Fahrenheit, heart rate 80 per minute, respiratory rate 20 per minute. Blood pressure 81/52 mmHg and oxygen saturation 100% on 3 liters oxygen. Neck veins are moderately distended. She has no oral thrush or ulcers. Pupils are equal and reactive to light and sclera is anicteric. Heart: Sounds are somewhat distant and regular. Lungs have bilateral rhonchi and diminished breath sounds at lower one-third. Abdomen: Soft and nontender. Extremities: Without cyanosis or clubbing. Lower extremity edema is slightly increased. Today's labs show WBC count 6.3, hemoglobin 9.6 and hematocrit 29.6. Sodium 141 and potassium 4.2. BUN 44 and creatinine 1.82. PROBLEMS: 1. Congestive heart failure, systolic, acute on chronic. She remains decompensated. She is not responding well to diuretics due to low blood pressure. 2. Hypotension. Her blood pressure remains low despite maximum dose of midodrine. She was on dobutamine drip for a few days which did help only slightly. I have discussed with the patient about her condition and prognosis. The patient did tell me that she wished to be DNR however, she also wishes to live for a few more years. At this point she seems to be quite limited due to persistent hypotension and congestive heart failure. In my opinion her prognosis remains guarded and she should be considered for DNR status. I have discussed this with Dr. Jimenez. 3. Acute renal failure superimposed on chronic kidney disease. This is related to hypotension and persistent congestive heart failure. At this point, her electrolytes are stable. She is not a dialysis candidate due to persistent hypotension. 4. Anemia. Her anemia is stable and does not need any intervention at this point. 5. Pleural effusions. The patient has bilateral pleural effusions, right is larger than the left. She is going to have thoracentesis tomorrow. Her Eliquis has been put on hold. 6. Chronic obstructive pulmonary disease (COPD) and cough. The patient has already been started on ceftaroline and she is afebrile. She also continues with her bronchodilator nebs.
[2016-12-01] VITALS: BP 80/47
[2016-12-01] MEDS: CEFTAROLINE FOSAMIL 300 MG in D5W 50 ML IV SCH ×3 (00:29→23:50)
[2016-12-01 04:00] VITALS: BP 87/50
[2016-12-01] MEDS: SODIUM CHLORIDE 0.9% INJ 10 ML SYR IV SCH ×2 (05:43→17:14)
[2016-12-01 06:02] LABS: MEAN CORPUSCULAR HGB CONC 32.2 g/dl (32.0-36.5); MEAN CORPUSCULAR VOLUME 93.4 fl (80.0-96.0); RED CELL DISTRIBUTION WIDTH 16.9 % (11.5-14.5); WHITE BLOOD COUNT 7.2 K/mm3 (4.0-10.0)
[2016-12-01 06:22] LABS: CALCIUM LEVEL 7.8 MG/DL (8.8-10.2); CREATININE FOR GFR 2.98 MG/DL (0.55-1.02); GLOMERULAR FILTRATION RATE 16.2 (>39); POTASSIUM SERUM 4.5 MEQ/L (3.5-5.1)
[2016-12-01] MEDS: ADVAIR HFA 115/21MCG INHALER INH SCH ×2 (07:50→19:56)
[2016-12-01] MEDS: IPRATROPIUM 0.5MG/ALBUTEROL 2.5MG INH SOL UD 3ML (DUONEB)(J7620) INH SCH ×3 (07:50→19:56)
[2016-12-01 08:00] VITALS: BP 97/53
--- NOTE | 2016-12-01 08:08 | IPN ---
DATE: 12/01/2016 Mrs. Redman had thoracentesis yesterday. Approximately 800 mL of red fluid was removed from the right hemathorax. This morning, she tells me that she feels a little bit better but not much. Still feels profoundly tired and gets short of breath with fairly minimal activity. Blood pressure remains soft, 88/50. Heart rate has been mostly in the 70s. She is in sinus rhythm. She is afebrile. Saturation 96% on 3 liters nasal cannula. Weight is 62.1 kg. Her jugular venous pulse (JVP) today looks very high, at least 6 or 7 cm. Lungs remain diminished on both sides, at least 1/3 of the lung field. No crackles. Heart exam revealed a regular rhythm. There is an unchanged murmur at the base. I do not appreciate gallop. Abdomen is soft. She still has 1-2+ peripheral edema. Laboratory-robison, potassium 4.5, BUN 69 and creatinine 3 for GFR of 69, glucose 108. CBC: Hemoglobin 9.2, hematocrit 28 and platelet count 230,000. Chest x-ray yesterday reveals improvement in the right-sided pleural effusion after the procedure and there was no pneumothorax. ASSESSMENT/PLAN: Mrs. Redman is a 76-year-old female who presents with chronic congestive heart failure that was initially felt to be diastolic, but her current echocardiogram reveals severe LV systolic dysfunction. There is a concomitant acute renal failure likely due to attempts to diurese the patient. Unfortunately, I am afraid that the patient's prognosis is very, very poor. Her blood pressure is too low to introduce any vasodilators. She did not have a favorable response to IV dobutamine with fairly modest diuresis and simultaneous worsening of renal function. Consequently, I am afraid that our options at this point are exhausted. Dr. Diego already talked to the patient about DO NOT RESUSCITATE (DNR) status yesterday and I had a discussion with her again today. I explained that our attempts have been failing and we do not have much else to offer. She still wants to talk to her family, which I think is completely appropriate. For today, I would suggest that we give her a break from diuretics, but simultaneously I am afraid that we are on the brink of talking about possibility of hospice care.
[2016-12-01] MEDS: MIDODRINE 5 MG TAB PO SCH ×3 (08:46→17:14)
[2016-12-01] MEDS: IRON POLYSAC (NIFEREX) 150 MG CAP PO SCH ×2 (08:47→20:23)
[2016-12-01] MEDS: DIGOXIN 0.0625MG PER 1/2TABLET PO SCH (08:47)
--- NOTE | 2016-12-01 12:41 | IPNPDOC ---
Text Note Date of Service The patient was seen on 12/01/16. NOTE Subjective: Patient is a 76 year old female CKD3, COPD (on 2L O2), Hx of Cor Pulmonale, Hx of Recurrent pleural effusions, CHF, HTN, Paroxysmal atrial fibrillation and Subclavian steal syndrome who presented to the ER with worsening SOB, PND and orthopnea for the last 2 days. She also noted increasing weight and lower extremity swelling. Patient was found to have decompensated systolic heart failure and admitted to the hospitalist service. She has received a dose of Lasix in the ER. Patient was noted to be hypotensive (SBP of 70-80s) on 11/19 afternoon. At that point she had diuresed >1000 cc. Her lasix was stopped, blood pressure medications were stopped and since she was bradycardic (50-60s) her digoxin was also stopped. She received 1 liter of fluids. Initially she reported some blurred vision and dizziness, but resolved with 1 liter of normal saline. Her blood pressure maintained in SBPs of 80. On 11/20 patient was seen and examined at the bedside. Again her SBP was in 70s and she received another 1 liter of NS. She remained asymptomatic after the NS, but her BP remained in the 80s. A bedside ultrasound was performed which revealed that she did not have any significant pericardial effusion, did not have a significant elevation of her jugular vein. She had what appeared to be a reduced contractility of the heart. Dr. Sheppard was called and case discussed; will be on consult. Patient seen and examined at bedside today. She was seen sitting up in bed. She did not have any specific complaints today. She noted that her breathing is doing better after the thoracentesis. No other events overnight reported. Objective: Vitals (See below) General: Sitting in chair comfortably, no acute distress, comfortable, AAOx3 HEENT: NC/AT CVS: irregular Lungs: Fair air entry b/l, course lung sounds bilaterally Abdomen: Soft, ND, NT, +BSx4 Extremities: 1+ pitting edema bilaterally, - calf tenderness Assessment and plan: 1. Hypotension; etiology unclear - Initially had some dizziness and visual problems; that has resolved with IV fluid hydration - Normal response to Cosyntropin stimulation test - ECHO completed - reduced EF from previous echo several months ago - c/w Digoxin - Dr. Sheppard (Cardiology) and Dr. Diego (Nephrology) consulted - assistance appreciated - c/w Midodrine, s/p Dobutamine Drip 2. Dyspnea - likely 2/2 fluid overload; possibly 2/2 pleural effusions - Presented with worsening SOB, LE edema and JVD - Clinically has improvement in breathing; LE edema persists but is improving - ECHO 08/2016: normal systolic and diastolic function ; AV sclerosis without stenosis / AR, mild TR and mild pulmonary HTN, trace to small pericardial effusion - ECHO 11/2016: Impaired systolic function with EF 35% - CXR 11/29: bilateral pleural effusions, R>L - R increased - Keep on strict ins/outs, daily weights, head of bed elevation - s/p Dobutamine drip - s/p Thoracocentesis 11/30: Removed 800 cc of fluid; appears exudative; cytology pending - Lasix on hold given ROBI 3. Acute kidney injury on CKD3 - likely 2/2 pre-renal vs. renal etiology - Elevation in Creatinine from baseline - Likely 2/2 medications (Lasix and Spironolactone) - Will continue to hold for now - Dr. Diego (Nephrology) consulted - assistance appreciated 4. Cellulitis of Right foot - Clinically improving - Physical initially revealed: R lateral foot with erythema / warmth / tenderness - No leukocytosis of fever noted - c/w Ceftaroline (Day #3); will transition antibiotics by tomorrow 5. Paroxysmal atrial fibrillation - c/w digoxin - Anticoagulation with Eliquis on hold 6. COPD - uses home oxygen at 2 liters - c/w Advair - c/w Duoneb PRN 7. s/p HTN - BP has been hypotensive - s/p Valsartan 8. s/p Hypokalemia/ Hypomagnesemia 9. Proteinuria - workup thus far unrevealing - Dr. Diego (Nephrology) consulted - assistance appreciated 10. Generalized deconditioning - c/w PT 11. DVT prophylaxis - Eliquis on hold; c/w SCDs VS,Fishbone, I+O VS, Fishbone, I+O Laboratory Tests 12/01/16 05:50 Red Blood Count 3.06 L, Mean Corpuscular Volume 93.4, Mean Corpuscular Hemoglobin 30.0, Mean Corpuscular Hemoglobin Concent 32.2, Red Cell Distribution Width 16.9 H, Calcium Level 7.8 L Vital Signs Date Time Temp Pulse Resp B/P (MAP) Pulse Ox O2 Delivery O2 Flow Rate FiO2 12/01/16 08:47 104 12/01/16 08:00 97.0 19 97/53 (68) 93 Nasal Cannula 3.0 I&O- Last 24 Hours up to 6 AM 12/01/16 06:00 Intake Total 410 ml Output Total 0 ml Balance 410 ml JACQUE ANTHONY MD Dec 01, 2016 12:41
[2016-12-01 16:00] VITALS: BP 84/58
[2016-12-01] MEDS: IPRATROPIUM 0.5MG/ALBUTEROL 2.5MG INH SOL UD 3ML (DUONEB)(J7620) INH PRN ×2 (17:43→23:33)
[2016-12-01 20:10] VITALS: BP 78/40
[2016-12-01] MEDS: ONDANSETRON 4MG/2ML VIAL (J2405) IV PRN (23:02)
[2016-12-01] MEDS ORDERED: GI COCKTAIL 50ML BTL(HYOSCYAMINE/MAALOX/LIDOCAINE VISCOUS)(1:3:1) PO ONE (23:15)
[2016-12-01] MEDS ORDERED: MOM 30ML SUSPENSION UDC PO PRN (23:15)
[2016-12-01] MEDS ORDERED: MIRALAX *UNIT DOSE* 17GM PACKET PO PRN (23:15)
[2016-12-02] VITALS: BP 78/35
[2016-12-02 01:04] LABS: BASO % 0.4 % (0.0-1.0); EOS % 0.1 % (0.0-3.0); LARGE UNSTAINED CELL # 0.2 K/mm3 (0.0-0.4); LARGE UNSTAINED CELL % 1.6 % (0.0-4.0); LYMPH # 0.3 K/mm3 (1.5-4.5); LYMPH % 3.3 % (24.0-44.0); MEAN CORPUSCULAR HEMOGLOBIN 29.4 pg (27.0-33.0); MEAN CORPUSCULAR HGB CONC 30.9 g/dl (32.0-36.5); MEAN CORPUSCULAR VOLUME 95.2 fl (80.0-96.0); MONO # 0.4 K/mm3 (0.0-0.8); MONO % 3.6 % (0.0-5.0); NEUTROPHILS # 8.9 K/mm3 (1.8-7.7); PLATELET COUNT, AUTOMATED 257 k/mm3 (150-450); RED CELL DISTRIBUTION WIDTH 16.9 % (11.5-14.5); WHITE BLOOD COUNT 9.8 K/mm3 (4.0-10.0)
[2016-12-02 01:23] LABS: ALBUMIN 2.5 GM/DL (3.2-5.2); ALBUMIN/GLOBULIN RATIO 0.5 (1.00-1.93); BILIRUBIN,TOTAL 0.4 MG/DL (0.2-1.0); CREATININE FOR GFR 3.53 MG/DL (0.55-1.02); GLOMERULAR FILTRATION RATE 13.3 (>39); POTASSIUM SERUM 4.8 MEQ/L (3.5-5.1); TOTAL PROTEIN 7.5 GM/DL (6.4-8.2)
--- NOTE | 2016-12-02 02:05 | IPNPDOC ---
Text Note Date of Service The patient was seen on 12/02/16. NOTE Evening resident and hospitalist were paged urgently that patient had some abdominal pain and was shaking. Patient's history reviewed. Therefore labs were ordered including CBC, BMP, lipase, lactic acid, KUB. She was also reported not having BM for many days. Bowel regiment was ordered to help her have a BM. And an hour later patient vomited, therefore she was examined emergently at bedside. Patient's face was blue and very weak. She agreed to sign DNR/DNI, we also spoke to patient's son on the phone and agreed with the plan. Will continue to monitor her, however her prognosis is extremely poor at this point. Patient has been discussed with attending Dr. Chandra. Tim HULL, I+O Tim HULL, I+O Laboratory Tests 12/01/16 05:50 Red Blood Count 3.06 L, Mean Corpuscular Volume 93.4, Mean Corpuscular Hemoglobin 30.0, Mean Corpuscular Hemoglobin Concent 32.2, Red Cell Distribution Width 16.9 H, Calcium Level 7.8 L 12/02/16 00:49 Red Blood Count 3.63 L, Mean Corpuscular Volume 95.2, Mean Corpuscular Hemoglobin 29.4, Mean Corpuscular Hemoglobin Concent 30.9 L, Red Cell Distribution Width 16.9 H, Calcium Level 9.0 #, Neutrophils (%) (Auto) 91.0 H, Lymphocytes (%) (Auto) 3.3 L, Monocytes (%) (Auto) 3.6, Eosinophils (%) (Auto) 0.1, Basophils (%) (Auto) 0.4, Neutrophils # (Auto) 8.9 H, Lymphocytes # (Auto) 0.3 L, Monocytes # (Auto) 0.4, Eosinophils # (Auto) 0.0, Basophils # (Auto) 0.0 , Aspartate Amino Transf (AST/SGOT) 19, Alanine Aminotransferase (ALT/SGPT) 14, Alkaline Phosphatase 90, Total Bilirubin 0.4, Total Protein 7.5, Albumin 2.5 L Vital Signs Date Time Temp Pulse Resp B/P (MAP) Pulse Ox O2 Delivery O2 Flow Rate FiO2 12/02/16 00:00 97.6 77 24 78/35 (49) 100 Nasal Cannula 4.0 I&O- Last 24 Hours up to 6 AM 12/02/16 06:00 Intake Total 120 ml Output Total 300 ml Balance -180 ml GME ATTESTATION GME ATTESTATION My preceptor for this patient encounter was physically present in the building during the encounter and was fully available. As needed, all aspects of the patient interview, examination, medical decision making process, and medical care plan development were reviewed and approved by the preceptor. Preceptor is aware and concurs with the plan as stated in the body of this note and will attest to such by his/her cosignature. RUSH SAMANO DO Dec 02, 2016 02:05
[2016-12-02] MEDS ORDERED: METOCLOPRAMIDE INJ 10MG/2ML VIAL (J2765) IV PRN (02:15)
[2016-12-02] MEDS: SODIUM CHLORIDE 0.9% INJ 10 ML SYR IV SCH (04:00)
--- NOTE | 2016-12-02 05:27 | IPN ---
DATE OF SERVICE: 11/30/2016 Ms. Redman is seen this morning on her bedside. She is sitting in the recliner chair as usual. Her brother is visiting her today. The patient continues to be short of breath and weak. Her blood pressure has been low despite high-dose midodrine. She has some cough, but denies any hemoptysis. She has no fever or chills. PHYSICAL EXAMINATION: Temperature 97 degrees Fahrenheit, heart rate 92 per minute and respiratory rate 20 per minute. Blood pressure 101/53 mmHg and oxygen saturation 95% on 3 liters oxygen. Intake and output records from yesterday showed total intake 530 and output 450 mL. She weighed 62.7 kg today, which is essentially unchanged since yesterday. Her head is atraumatic. Neck veins are moderately distended. She has no oral thrush or ulcers. Pupils are equal and reactive to light and sclera is anicteric. Heart sounds are regular and lungs with diminished breath sounds at lower 1/3 bilaterally. She has few rales audible on the left side. Abdomen is soft and nontender and bowel sounds are normal. Extremities have no cyanosis or clubbing. Lower extremity edema is 2+. Neurologically, she is awake, alert and oriented times three. Today's labs show WBC count 9.5, hemoglobin 9.8 and hematocrit 30.4. Platelets 257. Her chemistry showed sodium level 140 and potassium 4.6. BUN 51 and creatinine 2.32. Glucose 117 and calcium 8.0. PROBLEMS: 1. Acute on chronic congestive heart failure. The patient has not responded very well to high-dose diuretic given intravenously. This is most likely related to hypotension. At this point, we will continue with intravenous (IV) Lasix 60 mg every 6 hours. 2. Hypotension. Blood pressure remains low and has not responded very well. We will continue with midodrine 10 mg three times a day. She is volume overloaded so we are unable to give her more fluid. I feel that her prognosis is quite guarded due to persistent hypotension. 3. Acute renal failure superimposed on chronic kidney disease. Kidney function has worsened further. She is currently hypotensive and not on any nephrotoxic medications. She is not a dialysis candidate. 4. Anemia. Her anemia is stable and does not need any intervention at this point. 5. Pleural effusions. The patient is scheduled for thoracentesis later today. It remains to be seen how much fluid can be removed and how she tolerates it. Her dyspnea is likely to improve with thoracentesis. However, blood pressure might get even worse. 6. DO NOT RESUSCITATE. I have discussed with the patient at length about DNR. She does have the papers with her and she will think about it and sign today. I have strongly recommended her to sign a DNR as her prognosis is poor and resuscitation will be futile.
[2016-12-02 05:50] VITALS: BP 75/40
[2016-12-02] MEDS: MIDODRINE 5 MG TAB PO SCH (08:00)
[2016-12-02] MEDS: DIGOXIN 0.0625MG PER 1/2TABLET PO SCH (08:32)
[2016-12-02] MEDS: IRON POLYSAC (NIFEREX) 150 MG CAP PO SCH (08:33)
--- NOTE | 2016-12-02 08:42 | REP ---
Normal KUB: Single view: History: Acute abdominal pain with rigor. Findings: The lower pelvis and the right lateral abdominal wall are excluded from the field of view. There is evidence of pleural fluid on the right. Some pleural parenchymal opacities are seen in both lung bases. There is a relative paucity of bowel gas in the abdomen. Some air is seen in nondistended stomach and right and left colon. No small or large bowel dilation is seen. Impression: Pleuroparenchymal opacities in both lung bases small right pleural effusion. Unremarkable bowel gas pattern. Signed by Ney Mathur MD 12/02/2016 11:06 A
[2016-12-02] MEDS ORDERED: DOXYCYCLINE HYCLATE 100 MG TAB PO SCH (09:00)
--- NOTE | 2016-12-02 13:51 | IPNPDOC ---
Text Note Date of Service The patient was seen on 12/02/16. NOTE Subjective: Patient is a 76 year old female CKD3, COPD (on 2L O2), Hx of Cor Pulmonale, Hx of Recurrent pleural effusions, CHF, HTN, Paroxysmal atrial fibrillation and Subclavian steal syndrome who presented to the ER with worsening SOB, PND and orthopnea for the last 2 days. She also noted increasing weight and lower extremity swelling. Patient was found to have decompensated systolic heart failure and admitted to the hospitalist service. She has received a dose of Lasix in the ER. Patient was noted to be hypotensive (SBP of 70-80s) on 11/19 afternoon. At that point she had diuresed >1000 cc. Her lasix was stopped, blood pressure medications were stopped and since she was bradycardic (50-60s) her digoxin was also stopped. She received 1 liter of fluids. Initially she reported some blurred vision and dizziness, but resolved with 1 liter of normal saline. Her blood pressure maintained in SBPs of 80. On 11/20 patient was seen and examined at the bedside. Again her SBP was in 70s and she received another 1 liter of NS. She remained asymptomatic after the NS, but her BP remained in the 80s. A bedside ultrasound was performed which revealed that she did not have any significant pericardial effusion, did not have a significant elevation of her jugular vein. She had what appeared to be a reduced contractility of the heart. Dr. Sheppard was called and case discussed; will be on consult. Patient seen and examined at bedside today. Her entire family was present at the bedside. Currently she appears to be extremely fatigued, she is unable to speak for herself. I have spoke with her son, the healthcare proxy. He has changed her status to DNR/DNI on 12/02 early AM. Upon further discussion with him, he has expressed to me that MASONRY CONTRACTOR ADMINISTRATOR is a good option. I have agreed with his decision. Patient will be transitioned to comfort measures at this point. Objective: Vitals (See below) General: Sitting in chair, no acute distress, comfortable, minimal conservation Full exam not completed Assessment and plan: 1. Hypotension - possibly 2/2 acute decompensated congestive heart failure, systolic; however etiology not completely clear - s/p Digoxin, s/p Midodrine, s/p Dobutamine - Patient's family, Patient and Healthcare proxy have indicated that the patient should be made comfortable at this point - She has been made DNR/DNI on 12/02 AM - This morning I have added MASONRY CONTRACTOR ADMINISTRATOR order sets and removed medications - All lab work and vital signs have been discontinued - Nursing staff notified of change and removing unessential IV access 2. Dyspnea - likely 2/2 fluid overload; possibly 2/2 pleural effusions - s/p Dobutamine drip - s/p Thoracocentesis 11/30: Removed 800 cc of fluid; appears exudative; cytology pending - s/p Lasix 3. Acute kidney injury on CKD3 - likely 2/2 pre-renal vs. renal etiology 4. Cellulitis of Right foot - s/p antibiotics 5. Paroxysmal atrial fibrillation - s/p digoxin 6. COPD - s/p inhaled therapy - c/w supplemental oxygen 7. s/p HTN 8. s/p Hypokalemia/ Hypomagnesemia 9. Proteinuria 10. Generalized deconditioning 11. DVT prophylaxis Disposition: - will change status to MASONRY CONTRACTOR ADMINISTRATOR - remove medications - no additional labs / testing VS,Tim, I+O VS, Tim, I+O Laboratory Tests 12/02/16 00:49 Red Blood Count 3.63 L, Mean Corpuscular Volume 95.2, Mean Corpuscular Hemoglobin 29.4, Mean Corpuscular Hemoglobin Concent 30.9 L, Red Cell Distribution Width 16.9 H, Neutrophils (%) (Auto) 91.0 H, Lymphocytes (%) (Auto ) 3.3 L, Monocytes (%) (Auto) 3.6, Eosinophils (%) (Auto) 0.1, Basophils (%) ( Auto) 0.4, Neutrophils # (Auto) 8.9 H, Lymphocytes # (Auto) 0.3 L, Monocytes # ( Auto) 0.4, Eosinophils # (Auto) 0.0, Basophils # (Auto) 0.0, Calcium Level 9.0 # , Aspartate Amino Transf (AST/SGOT) 19, Alanine Aminotransferase (ALT/SGPT) 14, Alkaline Phosphatase 90, Total Bilirubin 0.4, Total Protein 7.5, Albumin 2.5 L Vital Signs Date Time Temp Pulse Resp B/P (MAP) Pulse Ox O2 Delivery O2 Flow Rate FiO2 12/02/16 11:20 Nasal Cannula 3.0 12/02/16 08:32 72 12/02/16 05:50 97.6 24 75/40 (13) 97 I&O- Last 24 Hours up to 6 AM 12/02/16 06:00 Intake Total 170 ml Output Total 300 ml Balance -130 ml JACQUE ANTHONY MD Dec 02, 2016 13:51
[2016-12-02] MEDS ORDERED: ONDANSETRON 4MG/2ML VIAL (J2405) As Ordered ONE (18:43)
[2016-12-02] MEDS: ONDANSETRON 4MG/2ML VIAL (J2405) IV PRN (18:50)
[2016-12-03] MEDS: ONDANSETRON 4MG/2ML VIAL (J2405) IV PRN (04:34)
[2016-12-03] MEDS: MORPHINE 2 MG/ML 1ML SYRINGE IV PRN ×7 (04:34→23:07)
--- NOTE | 2016-12-03 13:14 | IPNPDOC ---
Text Note Date of Service The patient was seen on 12/03/16. NOTE Subjective: Patient is a 76 year old female CKD3, COPD (on 2L O2), Hx of Cor Pulmonale, Hx of Recurrent pleural effusions, CHF, HTN, Paroxysmal atrial fibrillation and Subclavian steal syndrome who presented to the ER with worsening SOB, PND and orthopnea for the last 2 days. She also noted increasing weight and lower extremity swelling. Patient was found to have decompensated systolic heart failure and admitted to the hospitalist service. She has received a dose of Lasix in the ER. Patient was noted to be hypotensive (SBP of 70-80s) on 11/19 afternoon. At that point she had diuresed >1000 cc. Her lasix was stopped, blood pressure medications were stopped and since she was bradycardic (50-60s) her digoxin was also stopped. She received 1 liter of fluids. Initially she reported some blurred vision and dizziness, but resolved with 1 liter of normal saline. Her blood pressure maintained in SBPs of 80. On 11/20 patient was seen and examined at the bedside. Again her SBP was in 70s and she received another 1 liter of NS. She remained asymptomatic after the NS, but her BP remained in the 80s. A bedside ultrasound was performed which revealed that she did not have any significant pericardial effusion, did not have a significant elevation of her jugular vein. She had what appeared to be a reduced contractility of the heart. Dr. Sheppard was called and case discussed; will be on consult. Discussion with her son on 12/02, the healthcare proxy. He has changed her status to DNR/DNI on 12/02 early AM. Upon further discussion with him, he has expressed to me that RECREATIONAL DIRECTOR is a good option. I have agreed with his decision. Patient will be transitioned to comfort measures at this point. Patient seen and examined at bedside today. Family is present at bedside. Her daughter from [place] is also present at bedside. Objective: Vitals (See below) General: Sitting in chair, no acute distress, sleeping Full exam not completed Assessment and plan: 1. Hypotension - possibly 2/2 acute decompensated congestive heart failure, systolic; however etiology not completely clear 2. Dyspnea - likely 2/2 fluid overload; possibly 2/2 pleural effusions 3. Acute kidney injury on CKD3 4. Cellulitis of Right foot 5. Paroxysmal atrial fibrillation 6. COPD 7. s/p HTN 8. s/p Hypokalemia/ Hypomagnesemia 9. Proteinuria 10. Generalized deconditioning 11. DVT prophylaxis Plan: - Status has been update to RECREATIONAL DIRECTOR - All medications have been stopped - c/w RECREATIONAL DIRECTOR order set and medications for symptomatic control, such as control pain, agitation, nausea and secretions - No additional labs / testing to be performed VS,Fishbone, I+O VS, Fishbone, I+O Vital Signs Date Time Temp Pulse Resp B/P (MAP) Pulse Ox O2 Delivery O2 Flow Rate FiO2 12/03/16 08:51 Room Air 12/02/16 21:40 3.0 12/02/16 08:32 72 12/02/16 05:50 97.6 24 75/40 (52) 97 JACQUE ANTHONY MD Dec 03, 2016 13:14
[2016-12-03] MEDS: LORazepam 2 MG/ML VIAL (J2060) IV PRN ×4 (14:39→20:59)
--- NOTE | 2016-12-03 20:56 | IPN ---
DATE: 12/01/2016 Mrs. Redman is seen this morning on her bedside. She is sitting in the chair and feeling about the same. She continues to have shortness of breath and cough. She denies any nausea or vomiting. She has no fever or chills. She underwent thoracentesis yesterday. Her dyspnea is slightly improved. However, her blood pressure has not improved and it remains in the 80s. PHYSICAL EXAMINATION: Temperature 97 degrees Fahrenheit, heart rate 68 per minute and respiratory rate 20 per minute. Blood pressure 84/58 mmHg and oxygen saturation 93% on 3 liters oxygen. Intake and output records are inaccurate. There is no urine output recorded for last 24 hours. Her head is atraumatic. Neck is supple and JVD is elevated. She has no oral thrush or ulcers. Heart sounds are regular and lungs have diminished breath sounds with bilateral rhonchi. Abdomen soft and nontender and bowel sounds are present. There is no palpable organomegaly. Extremities have no cyanosis or clubbing. Lower extremity edema is essentially unchanged. Today's labs show WBC count 7.2, hemoglobin 9.2 and hematocrit 28.6. Sodium 139 and potassium 4.5. BUN is 69 and creatinine 2.98. PROBLEMS: 1. Acute renal failure superimposed on chronic kidney disease. The patient has been oliguric. She is not tolerating diuretic due to low blood pressure. She is not a suitable candidate for dialysis for the same reason. So far her electrolytes are stable and she does not have any significant metabolic acidosis. 2. Acute on chronic congestive heart failure. The patient remains decompensated and is not tolerating diuretics due to low blood pressure. I have discussed with the patient at length about her prognosis. She was treated with dobutamine however did not have much in the long-term. She had some diuresis. However, then she became hypotensive even while she was on dobutamine. Since then she has been doing poorly. 3. Hypotension. This has been the major limiting factor for everything else. She was treated with dobutamine without much improvement and now she has been on midodrine 10 mg three times a day. Her blood pressure has been persistently low. I discussed with the patient and her daughter over the phone and explained her situation and prognosis at great length. I have talked to the patient repeatedly about do not resuscitate status. However, she has not signed do not resuscitate papers so far. Her prognosis is extremely poor. 4. Anemia. Her anemia is essentially unchanged. At this point we will not treat her with any Aranesp or Procrit as it might worsen her congestive heart failure. 5. COPD. The patient remains on doxycycline and ceftaroline. She is also receiving her nebulizers.
[2016-12-03 23:21] VITALS: BP 75/40
[2016-12-04] MEDS: LORazepam 2 MG/ML VIAL (J2060) IV PRN (00:25)
[2016-12-04] MEDS: MORPHINE 2 MG/ML 1ML SYRINGE IV PRN (01:25)
--- NOTE | 2016-12-04 18:13 | DS.PDOC ---
Discharge Summary General Date of Admission Nov 18, 2016 at 05:53 Date of Discharge 12/04/16 Discharge Summary PROCEDURES PERFORMED DURING STAY: None ADMITTING DIAGNOSES / DISCHARGE DIAGNOSES: 1. Hypotension - possibly 2/2 acute decompensated congestive heart failure, systolic; however etiology not completely clear 2. Dyspnea - likely 2/2 fluid overload; possibly 2/2 pleural effusions 3. Acute kidney injury on CKD3 4. Cellulitis of Right foot 5. Paroxysmal atrial fibrillation COMPLICATIONS/CHIEF COMPLAINT: Shortness of breath HISTORY OF PRESENT ILLNESS: Patient is a 76 year old female CKD3, COPD (on 2L O2), Hx of Cor Pulmonale, Hx of Recurrent pleural effusions, CHF, HTN, Paroxysmal atrial fibrillation and Subclavian steal syndrome who presented to the ER with worsening SOB, PND and orthopnea for the last 2 days. She also noted increasing weight and lower extremity swelling. Patient was found to have decompensated systolic heart failure and admitted to the hospitalist service. She has received a dose of Lasix in the ER. Patient was noted to be hypotensive (SBP of 70-80s) on 11/19 afternoon. At that point she had diuresed >1000 cc. Her lasix was stopped, blood pressure medications were stopped and since she was bradycardic (50-60s) her digoxin was also stopped. She received 1 liter of fluids. Initially she reported some blurred vision and dizziness, but resolved with 1 liter of normal saline. Her blood pressure maintained in SBPs of 80. On 11/20 patient was seen and examined at the bedside. Again her SBP was in 70s and she received another 1 liter of NS. She remained asymptomatic after the NS, but her BP remained in the 80s. A bedside ultrasound was performed which revealed that she did not have any significant pericardial effusion, did not have a significant elevation of her jugular vein. She had what appeared to be a reduced contractility of the heart. Dr. Sheppard was called and case discussed; will be on consult. Discussion with her son on 12/02, the healthcare proxy. He has changed her status to DNR/DNI on 12/02 early AM. Upon further discussion with him, he has expressed to me that REINFORCING ROD LAYER is a good option. I have agreed with his decision. Patient will be transitioned to comfort measures at this point. HOSPITAL COURSE: 1. Hypotension - possibly 2/2 acute decompensated congestive heart failure, systolic; however etiology not completely clear 2. Dyspnea - likely 2/2 fluid overload; possibly 2/2 pleural effusions 3. Acute kidney injury on CKD3 4. Cellulitis of Right foot 5. Paroxysmal atrial fibrillation 6. COPD 7. s/p HTN 8. s/p Hypokalemia/ Hypomagnesemia 9. Proteinuria 10. Generalized deconditioning 11. DVT prophylaxis DISCHARGE MEDICATIONS: N/A. ALLERGIES: Please see below. LABORATORY DATA: Please see below. DISCHARGE PLAN: - Patient was transitioned to REINFORCING ROD LAYER status - All medications have been stopped - c/w REINFORCING ROD LAYER order set and medications for symptomatic control, such as control pain, agitation, nausea and secretions - No additional labs / testing to be performed - Patient ultimately on 12/04/16 early AM DISPOSITION: DISCHARGE CONDITION: TIME SPENT ON DISCHARGE: Greater than 20 minutes Vital Signs/I&Os Vital Signs Date Time Temp Pulse Resp B/P (MAP) Pulse Ox O2 Delivery O2 Flow Rate FiO2 12/03/16 23:21 97.6 72 24 75/40 97 Room Air 3.0 I&O- Last 24 Hours up to 6 AM 12/04/16 05:59 Intake Total 0 ml Output Total 0 ml Balance 0 ml Microbiology Microbiology 12/02/16 Blood Culture - Preliminary, Resulted No Growth after 48 hours. All Specime... 11/30/16 Acid Fast Stain, Received Pending 11/30/16 Mycobacterial Culture, Received Pending 11/30/16 Fungal Smear, Received Pending 11/30/16 Fungal Culture, Received Pending 11/30/16 Gram Stain - Final, Complete 11/30/16 Body Fluid Culture - Final, Complete Discharge Medications Scheduled (Incruse Ellipta) 62.5 Mcg/Inh Inh, 1 PUFF INH DAILY, (Reported) (Diovan Hct 80-12.5 mg) 1 Tab Tab, 1 TAB PO DAILY, (Reported) Apixaban Base (Eliquis) 2.5 Mg Tab, 2.5 MG PO BID, (Reported) Aspirin (Aspir-81) 81 Mg Tab, 81 MG PO DAILY, (Reported) Digoxin (Digoxin) 0.125 Mg Tab, 0.125 MG PO Q2D, (Reported) Furosemide (Furosemide) 40 Mg Tab, 40 MG PO BID, (Reported) Metolazone (Metolazone) 5 Mg Tab, 5 MG PO Q2D, (Reported) Potassium Chloride (Klor-Con M10) 10 Meq Tabcr, 10 MEQ PO BID, (Reported) Salmeterol/Fluticasone (Advair Diskus 250-50 Mcg/Dose) 14 Puff/Inhaler Aerp, 1 PUFF INH BID, (Reported) Scheduled PRN (Flonase Allergy Relief) 50 Mcg/Act Spr, 1 SPRAY NA DAILY PRN for RUNNY NOSE, ( Reported) Albuterol Sulfate (Ventolin Hfa) 200 Puff/8 Gm Aers, 2 PUFF INH QIDP PRN for WHEEZING, (Reported) Albuterol/Ipratropium (Ipratropium [place]/Albut 0.5-2.5 (3) mg/3Ml) 1 Jaleesa Jaleesa, 1 JALEESA INH TID PRN for SHORTNESS OF BREATH, (Reported) Allergies Coded Allergies: Amlodipine (Verified Allergy, Mild, 09/08/16) Ezetimibe (Verified Allergy, Mild, 09/08/16) Fluvastatin (Verified Allergy, Mild, 09/08/16) [id number] Ethyl Esters (Verified Allergy, Mild, 09/08/16) Beta Adrenergic Blockers (Unverified Allergy, Unknown, CHF, 09/08/16) JACQUE ANTHONY MD Dec 04, 2016 18:13
== END 2016-12-04 03:20 | disposition expired | DRG 291 ==
LOC: M ED 03:19 → M ED INP 05:53 → M PCU 13:30 → M MSPAV 12-02 11:15
PROVIDERS: ADMIT Hospitalist; ATTEND Internal Medicine
PROC: 02HV33Z Insertion of Infusion Device into Superior Vena Cava, Percutaneous Approach (ICD-10-PCS; 2016-11-23)
PROC: 0W993ZZ Drainage of Right Pleural Cavity, Percutaneous Approach (ICD-10-PCS; principal; 2016-11-30)
DX: I13.0 Hypertensive heart and chronic kidney disease with heart failure and stage 1 through stage 4 chronic kidney disease, or unspecified chronic kidney disease (principal); I50.23 Acute on chronic systolic (congestive) heart failure; N17.9 Acute kidney failure, unspecified; J90 Pleural effusion, not elsewhere classified; L03.115 Cellulitis of right lower limb; Z66 Do not resuscitate; Z51.5 Encounter for palliative care; R57.0 Cardiogenic shock; E83.42 Hypomagnesemia; N18.3 Chronic kidney disease, stage 3 (moderate); J44.9 Chronic obstructive pulmonary disease, unspecified; I95.9 Hypotension, unspecified; E87.6 Hypokalemia; I48.0 Paroxysmal atrial fibrillation; Z99.81 Dependence on supplemental oxygen; Z79.82 Long term (current) use of aspirin; Z88.8 Allergy status to other drugs, medicaments and biological substances; Z90.711 Acquired absence of uterus with remaining cervical stump; Z87.891 Personal history of nicotine dependence; Z79.01 Long term (current) use of anticoagulants